=== PATIENT | female | born 1970 | race Caucasian/White ===

== ENCOUNTER 2018-02-23 17:25 | Inpatient (IN) | payer OTHER ==
[2018-02-23 17:32] VITALS: BMI 21.2
--- NOTE | 2018-02-23 17:38 | PDOC ---
Rapid Medical Evaluation Chief Complaint: Wound Time Seen by Provider: 02/23/18 17:37 Medical Evaluation: Allergies Allergy/AdvReac Type Severity Reaction Status Date / Time No Known Allergies Allergy Verified 02/23/18 17:27 Vital Signs Temp Pulse Resp BP Pulse Ox 99.4 F 110 H 18 139/72 100 02/23/18 17:27 02/23/18 17:27 02/23/18 17:27 02/23/18 17:27 02/23/18 17:27
[2018-02-23] MEDS ORDERED: ACETAMINOPHEN 1000 MG/100 ML VIAL (NON FORMULARY) IVPB ONE (18:31)
[2018-02-23] MEDS ORDERED: SODIUM CHLORIDE 0.9% 500 ML INFUS.BAG IV ONE (18:36)
[2018-02-23] MEDS ORDERED: VANCOMYCIN 1,000 MG in DEXTROSE 5%-WATER - 250 ML IVPB ONE (18:36)
[2018-02-23] MEDS ORDERED: PIPERACILLIN/TAZOB 4.5 GM 4.5 GM in DEXTROSE 5%-WATER 100 ML IVPB ONE (18:37)
--- NOTE | 2018-02-23 18:38 | PDOC ---
History of Present Illness - General Chief Complaint: Wound Stated Complaint: WOUND Time Seen by Provider: 02/23/18 17:37 - History of Present Illness Initial Comments: 47 year old female with NIDDM (s/p right third digit amputation one year prior at [place]) presenting with left fright toe planter wound for the pat month, fevers x3 days, and lower body aches x 1 week. States that she noticed a lesion on her left first toe one month prior that she did not seek medical care for and gradually worsened. She had fevers and muscle aches over the last three days and one weeks respectively for which she has taken three days of Amoxicillin which have not improved her symptoms. Denies SOB, chest pain, visual symptoms, or other sick symptoms. 02/23/18 18:32 Past History - Past Medical History Allergies/Adverse Reactions: Allergies Allergy/AdvReac Type Severity Reaction Status Date / Time No Known Allergies Allergy Verified 02/23/18 17:27 Home Medications: Ambulatory Orders metFORMIN HCL [Glucophage] 1,000 mg PO BID 04/02/12 Amoxicillin - [Amoxicillin 500mg Capsule -] 500 mg PO BID 02/23/18 Ranitidine [Zantac -] 150 mg PO BID 02/23/18 COPD: No Diabetes: Yes HTN: Yes - Suicide/Smoking/Psychosocial Hx Smoking Status: No Smoking History: Never smoked Have you smoked in the past 12 months: No Number of Cigarettes Smoked Daily: 0 Information on smoking cessation initiated: No Hx Alcohol Use: No Drug/Substance Use Hx: No Substance Use Type: None Review of Systems - Review of Systems Constitutional: Yes: Chills, Diaphoresis, Fever. No: Loss of Appetite, Malaise HEENTM: No: Eye Pain, Blurred Vision, Tearing Respiratory: No: Cough, Shortness of Breath, SOB with Exertion Cardiac (ROS): No: Edema, Irregular Heart Rate, Lightheadedness, Chest Tightness ABD/GI: Yes: Nausea, Vomiting. No: Diarrhea : No: Dysuria, Discharge, Frequency, Flank Pain Musculoskeletal: Yes: Joint Pain, Muscle Weakness. No: Back Pain Integumentary: Yes: Lesions. No: Lumps, Rash Neurological: Yes: Headache. No: Numbness, Paresthesia Psychiatric: No: Anxiety, Depression *Physical Exam - Vital Signs Last Vital Signs Temp Pulse Resp BP Pulse Ox 99.4 F 110 H 18 139/72 100 02/23/18 17:27 02/23/18 17:27 02/23/18 17:27 02/23/18 17:27 02/23/18 17:27 - Physical Exam General Appearance: Yes: Nourished, Appropriately Dressed, Apparent Distress HEENT: positive: EOMI, PETER, Normal ENT Inspection, Normal Voice Neck: positive: Trachea midline, Normal Thyroid, Supple. negative: Tender, Rigid Respiratory/Chest: positive: Lungs Clear, Normal Breath Sounds, Respiratory Distress. negative: Chest Tender, Accessory Muscle Use Cardiovascular: positive: Regular Rhythm, Regular Rate Gastrointestinal/Abdominal: positive: Normal Bowel Sounds, Flat, Soft. negative : Tender Musculoskeletal: positive: Other (Per extremity section). negative: Normal Inspection, Decreased Range of Motion Extremity: positive: Normal Capillary Refill, Normal Inspection, Normal Range of Motion, Tender, Other (Right toe plantar aspect ulcer with malodorous material but no obvious drainage. Wound probe extending into soft tissue.) Integumentary: positive: Normal Color, Dry, Warm Neurologic: positive: Fully Oriented, Alert, Normal Mood/Affect, Normal Response , Motor Strength 5/5 ED Treatment Course - LABORATORY CBC & Chemistry Diagram: 02/23/18 18:27 02/23/18 18:27 - RADIOLOGY Radiology Studies Ordered: Category Date Time Status FOOT-LEFT [RAD] Stat Radiology 02/23/18 18:28 Ordered Medical Decision Making - Medical Decision Making 47 year old female with poorly controlled NIDDM presenting with right foot ulcer concerning for osteo with elevated WBC, CRP, and palpitations. Patient signed out to Dr. Bean pending foot XR but wound was cultured and patient given Vanc and Zosyn. 02/23/18 21:23 *DC/Admit/Observation/Transfer Diagnosis at time of Disposition: Right foot ulcer, Hyperglycemia - Discharge Dispostion Disposition: HOME Condition at time of disposition: Improved Decision to Admit order: Yes - Referrals - Patient Instructions - Post Discharge Activity
[2018-02-23] MEDS ORDERED: ACETAMINOPHEN INJECTION 100 ML IVPB ONE (18:55)
[2018-02-23] MEDS ORDERED: PIPERACILLIN/TAZOB 4.5 GM 4.5 GM/100 ML BAG IVPB ONE (18:55)
[2018-02-23] MEDS ORDERED: VANCOMYCIN 1 GRAM (PRE-DOCKED) 1,000 MG/250 ML BAG IVPB ONE (18:56)
[2018-02-23 19:01] LABS: VENOUS PC02 44.1 mmHg (38-52); VENOUS PH 7.36 (7.32-7.42)
[2018-02-23 19:02] LABS: BASO % 0.6 % (0-2.0); EOS % 0.1 % (0-4.5); HEMATOCRIT 37.2 % (32.4-45.2); LYMPH % 4.1 % (8-40); MCH 28.1 pg (25.7-33.7); MCHC 32.3 g/dl (32.0-36.0); MEAN CELL VOLUME 86.9 fl (80-96); MEAN PLT VOLUME 9.5 fl (7.5-11.1); NEUT % 91.2 % (42.8-82.8); PLATELET COUNT 297 K/MM3 (134-434); RBC 4.28 M/mm3 (3.60-5.2); RDW 13.4 % (11.6-15.6); WHITE BLOOD COUNT 17.6 K/mm3 (4.0-10.0)
[2018-02-23 19:04] LABS: VENOUS PO2 14.2 mmHg (28-48)
[2018-02-23 19:13] LABS: URINE APPEARANCE CLEAR; URINE BILIRUBIN NEGATIVE (<2.0 mg/dL); URINE COLOR COLORLESS; URINE GLUCOSE (UA) 3+ (NEGATIVE); URINE KETONE TRACE (NEGATIVE); URINE LEUK ESTERASE NEGATIVE (NEGATIVE); URINE NITRITE NEGATIVE (NEGATIVE); URINE PROTEIN NEGATIVE (NEGATIVE); URINE UROBILINOGEN NEGATIVE mg/dL (0.2-1.0)
[2018-02-23 19:20] LABS: EPI CELLS RARE /HPF (FEW); URINE BACTERIA RARE /hpf (NONE SEEN); URINE MUCUS RARE
[2018-02-23 19:23] LABS: INR 1.09 (0.82-1.09); PROTHROMBIN TIME (PATIENT) 12.3 SEC (9.7-13.0)
[2018-02-23 19:26] LABS: ACTIVATED PTT 25.8 SECONDS (25.2-36.5)
[2018-02-23] MEDS ORDERED: morphine CARPU-JECT 2 MG/1 ML DISP.SYRIN IVPUSH ONE (19:26)
[2018-02-23] MEDS ORDERED: MORPHINE SULFATE 2 MG/ML VIAL ONE (19:29)
[2018-02-23 19:35] LABS: ALBUMIN 3.5 g/dl (3.4-5.0); ANION GAP 9 (8-16); BILIRUBIN,TOTAL 0.4 mg/dL (0.2-1.0); BLOOD UREA NITROGEN 23 mg/dL (7-18); CALCIUM 9.5 mg/dL (8.5-10.1); CHLORIDE 97 mmol/L (98-107); CO2 25 mmol/L (21-32); CREATININE 1.4 mg/dL (0.55-1.02); POTASSIUM 4.5 mmol/L (3.5-5.1); SGOT/AST 10 U/L (15-37); SGPT/ALT 19 U/L (12-78); SODIUM 131 mmol/L (136-145); TOT PROT 8.8 g/dl (6.4-8.2)
--- NOTE | 2018-02-23 19:36 | PDOC ---
Attending Attestation - HPI HPI: 02/23/18 20:47 Patient is a 47 year old female with a significant past medical history of HTN, Diabetes, who presents to the ED with complaints of right foot pain, s/p wound that began x1 month ago. Patient reports experiencing right first toe wound that began x1 month ago that she states causing intense pain. She reports experiencing associated general body aches, diaphoresis and subjective fevers. Patient reports taking amoxicillin from a [place] near her home for her symptoms for x3 days with no relief, prompting her to come into the ED for further evaluation Denies chest pain, Sob. Denies nausea, vomiting. Denies chills. Denies contact with sick individuals, out of state travelling. Denies trauma to affected area. Denies dysuria, hematuria. Denies constipation, diarrhea. Denies any other symptoms. Allergies: None Social history: no smoking. No alcohol. No illicit drugs. Surgical history: Right second toe amputation, s/p diabetic wound. PMD: None - Physicial Exam PE: 02/23/18 20:47 GENERAL: Well-appearing, well-nourished. No apparent distress. HEENT: +Dry mucous membrane. Normocephalic, atraumatic. PERRL, EOM intact. CARDIOVASCULAR: +Tachycardic. Normal S1, S2. Regular rhythm. PULMONARY: Clear to auscultation bilaterally. ABDOMEN: Soft, non-distended, non-tender. EXTREMITIES: +nickel size wound to dorsum of her big right toe. +Serous discharge. +wound smells malodorous. No surrounding erythema. Normal ROM in all four extremities. No gross deformities. SKIN: Warm, dry. No rash NEUROLOGICAL: No focal neurological deficits. <Frank Vogt - Last Filed: 02/23/18 20:47> - Resident Resident Name: Isela Tubbs - ED Attending Attestation I have performed the following: I have examined & evaluated the patient, The case was reviewed & discussed with the resident, I agree w/resident's findings & plan, Exceptions are as noted - Medical Decision Making 02/24/18 19:13 Pt was admitted for further evaluation and care <Isidoro Baltazar - Last Filed: 02/24/18 19:13>
[2018-02-23 19:37] LABS: ALK PHOS 166 U/L (45-117)
[2018-02-23 19:50] LABS: GLUCOSE,RANDOM 642 mg/dL (74-106)
[2018-02-23] MEDS ORDERED: INSULIN REGULAR HUMAN 100 UNITS/ML *VIAL IVPUSH ONE (20:03)
[2018-02-23] MEDS ORDERED: INSULIN REGULAR HUMAN 100 UNITS/ML *VIAL ONE (20:17)
[2018-02-23 20:44] LABS: PLATELET ESTIMATE ADEQUATE
[2018-02-23] MEDS ORDERED: oxyCODONE HCL 5 MG TABLET PO PRN (20:51)
--- NOTE | 2018-02-23 20:51 | HP ---
Admitting History and Physical - Primary Care Physician PCP: Shannan Bean - Admission History of Present Illness: 47 year old female with NIDDM (s/p right third digit amputation one year prior at [place]) presenting with left toe planter wound for the last month, fevers x3 days, and lower body aches x 1 week. States that she noticed a lesion on her left first toe one month prior that she did not seek medical care for and gradually worsened. She had fevers and muscle aches over the last three days and one weeks respectively for which she has taken three days of Amoxicillin which have not improved her symptoms. - Past Medical History Endocrine: Yes: Diabetes Mellitus - Smoking History Smoking history: Never smoked Have you smoked in the past 12 months: No Aproximately how many cigarettes per day: 0 - Alcohol/Substance Use Hx Alcohol Use: No Home Medications - Allergies Allergies/Adverse Reactions: Allergies Allergy/AdvReac Type Severity Reaction Status Date / Time No Known Allergies Allergy Verified 02/23/18 17:27 - Home Medications Home Medications: Ambulatory Orders metFORMIN HCL [Glucophage] 1,000 mg PO BID 04/02/12 Amoxicillin - [Amoxicillin 500mg Capsule -] 500 mg PO BID 02/23/18 Ranitidine [Zantac -] 150 mg PO BID 02/23/18 Physical Examination Vital Signs: Vital Signs Temperature 99.4 F 02/23/18 17:27 Pulse Rate 110 H 02/23/18 17:27 Respiratory Rate 18 02/23/18 17:27 Blood Pressure 139/72 02/23/18 17:27 O2 Sat by Pulse Oximetry (%) 100 02/23/18 17:27 Constitutional: Yes: No Distress HENT: Yes: Atraumatic Neck: Yes: Supple Cardiovascular: Yes: Regular Rate and Rhythm Respiratory: Yes: CTA Bilaterally Gastrointestinal: Yes: Normal Bowel Sounds Extremities: Yes: Other (R foot ulcer) Neurological: Yes: Alert, Oriented Labs: CBC, BMP 02/23/18 18:27 02/23/18 18:27 Problem List - Problems (1) Cellulitis of left foot Assessment/Plan: iv abx, id and podiatry Code(s): L03.116 - CELLULITIS OF LEFT LOWER LIMB (2) Hyperglycemia Code(s): R73.9 - HYPERGLYCEMIA, UNSPECIFIED (3) Right foot ulcer Code(s): L97.519 - NON-PRS CHRONIC ULCER OTH PRT RIGHT FOOT W UNSP SEVERITY Assessment/Plan Laboratory Tests 02/23/18 02/23/18 02/23/18 18:27 18:27 18:27 WBC 17.6 H RBC 4.28 Hgb 12.0 Hct 37.2 MCV 86.9 MCH 28.1 MCHC 32.3 RDW 13.4 Plt Count 297 MPV 9.5 Absolute Neuts (auto) 16.1 Neutrophils % 91.2 H Neutrophils % (Manual) 84.0 H Band Neutrophils % 6.0 Lymphocytes % 4.1 L Lymphocytes % (Manual) 6.0 L Monocytes % 4.0 Monocytes % (Manual) 3 L Eosinophils % 0.1 Eosinophils % (Manual) 0.0 Basophils % 0.6 Basophils % (Manual) 0.0 Nucleated RBC % 0 Platelet Estimate Adequate PT with INR 12.30 INR 1.09 PTT (Actin FS) 25.8 L VBG pH POC VBG pCO2 POC VBG pO2 Mixed VBG HCO3 Sodium Potassium Chloride Carbon Dioxide Anion Gap BUN Creatinine Creat Clearance w eGFR Random Glucose Lactic Acid Calcium Total Bilirubin AST ALT Alkaline Phosphatase Troponin I C-Reactive Protein Total Protein Albumin Urine Color Colorless Urine Appearance Clear Urine pH 5.0 Ur Specific Webb 1.022 Urine Protein Negative Urine Glucose (UA) 3+ H Urine Ketones Trace H Urine Blood 1+ H Urine Nitrite Negative Urine Bilirubin Negative Urine Urobilinogen Negative Ur Leukocyte Esterase Negative Urine WBC (Auto) 1 Urine RBC (Auto) <1 Ur Epithelial Cells Rare Urine Bacteria Rare Urine Mucus Rare Urine HCG, Qual 02/23/18 02/23/18 02/23/18 18:27 18:27 18:27 WBC RBC Hgb Hct MCV MCH MCHC RDW Plt Count MPV Absolute Neuts (auto) Neutrophils % Neutrophils % (Manual) Band Neutrophils % Lymphocytes % Lymphocytes % (Manual) Monocytes % Monocytes % (Manual) Eosinophils % Eosinophils % (Manual) Basophils % Basophils % (Manual) Nucleated RBC % Platelet Estimate PT with INR INR PTT (Actin FS) VBG pH 7.36 POC VBG pCO2 44.1 POC VBG pO2 14.2 L* Mixed VBG HCO3 24.7 Sodium 131 L Potassium 4.5 Chloride 97 L Carbon Dioxide 25 Anion Gap 9 BUN 23 H Creatinine 1.4 H Creat Clearance w eGFR 40.48 Random Glucose 642 H* Lactic Acid 1.6 Calcium 9.5 Total Bilirubin 0.4 AST 10 L ALT 19 Alkaline Phosphatase 166 H Troponin I C-Reactive Protein Total Protein 8.8 H Albumin 3.5 Urine Color Urine Appearance Urine pH Ur Specific Webb Urine Protein Urine Glucose (UA) Urine Ketones Urine Blood Urine Nitrite Urine Bilirubin Urine Urobilinogen Ur Leukocyte Esterase Urine WBC (Auto) Urine RBC (Auto) Ur Epithelial Cells Urine Bacteria Urine Mucus Urine HCG, Qual 02/23/18 02/23/18 02/23/18 18:27 18:35 19:15 WBC RBC Hgb Hct MCV MCH MCHC RDW Plt Count MPV Absolute Neuts (auto) Neutrophils % Neutrophils % (Manual) Band Neutrophils % Lymphocytes % Lymphocytes % (Manual) Monocytes % Monocytes % (Manual) Eosinophils % Eosinophils % (Manual) Basophils % Basophils % (Manual) Nucleated RBC % Platelet Estimate PT with INR INR PTT (Actin FS) VBG pH POC VBG pCO2 POC VBG pO2 Mixed VBG HCO3 Sodium Potassium Chloride Carbon Dioxide Anion Gap BUN Creatinine Creat Clearance w eGFR Random Glucose Lactic Acid Calcium Total Bilirubin AST ALT Alkaline Phosphatase Troponin I < 0.02 C-Reactive Protein 31.6 H Total Protein Albumin Urine Color Urine Appearance Urine pH Ur Specific Webb Urine Protein Urine Glucose (UA) Urine Ketones Urine Blood Urine Nitrite Urine Bilirubin Urine Urobilinogen Ur Leukocyte Esterase Urine WBC (Auto) Urine RBC (Auto) Ur Epithelial Cells Urine Bacteria Urine Mucus Urine HCG, Qual Negative Active Medications Generic Name Dose Route Start Last Admin Trade Name Freq PRN Reason Stop Dose Admin Acetaminophen 650 mg 02/23/18 20:51 02/24/18 06:18 Tylenol - PO 650 mg Q6H PRN Administration FEVER Heparin Sodium (Porcine) 5,000 unit 02/23/18 22:00 02/24/18 11:24 Heparin - SQ 5,000 unit BID DANILO Administration Piperacillin Sod/Tazobactam 50 mls @ 100 mls/hr 02/23/18 21:30 02/24/18 11:28 Sod 3.375 gm/ Dextrose IVPB 100 mls/hr Q8H-IV DANILO Administration Protocol Metformin HCl 500 mg 02/24/18 07:00 02/24/18 06:09 Glucophage - PO 500 mg BIDI DANILO Administration Oxycodone HCl 10 mg 02/23/18 20:51 Roxicodone - PO Q6H PRN PAIN LEVEL 4 - 6 Ranitidine HCl 150 mg 07/16/18 22:00 02/24/18 11:28 Zantac - PO 150 mg BID DANILO Administration
[2018-02-23] MEDS ORDERED: SODIUM CHLORIDE 1,000 ML IV STA (21:00)
[2018-02-23] MEDS ORDERED: PIPERACILLIN/TAZOB 3.375 GM 3.375 GM/50 ML BAG IVPB ONE (21:46)
[2018-02-23] MEDS: PIPERACILLIN/TAZOB 3.375 GM 3.375 GM in DEXTROSE 5%-WATER - 50 ML IVPB SCH (21:52)
[2018-02-23] MEDS ORDERED: HEPARIN NA (PORCINE) 5,000 UNITS/ML 1ML VIAL ONE (21:54)
[2018-02-23] MEDS ORDERED: RANITIDINE HCL 150 MG TABLET (FP) ONE (21:54)
[2018-02-23] MEDS: RANITIDINE HCL 150 MG TABLET (FP) PO SCH (21:59)
[2018-02-23] MEDS: HEPARIN NA (PORCINE) 5,000 UNITS/ML 1ML VIAL SQ SCH (21:59)
[2018-02-24] MEDS ORDERED: PIPERACILLIN/TAZOBACTAM 3.375 GM VIAL IVPB ONE ×3 (01:06→17:45)
[2018-02-24] MEDS ORDERED: DEXTROSE 5%-WATER - 50 ML IVPB ONE ×3 (01:06→17:45)
[2018-02-24] MEDS: PIPERACILLIN/TAZOB 3.375 GM 3.375 GM in DEXTROSE 5%-WATER - 50 ML IVPB SCH ×3 (02:31→17:51)
[2018-02-24] MEDS ORDERED: ONDANSETRON 4 MG/2 ML VIAL ONE (06:02)
[2018-02-24] MEDS: metFORMIN HCL 500 MG TABLET (FP) PO SCH ×2 (06:09→17:52)
[2018-02-24] MEDS ORDERED: INSULIN (NOVOLOG) ASPART 100 UNITS/ML 10ML VIAL SQ ONE ×2 (06:15→23:15)
[2018-02-24] MEDS ORDERED: ONDANSETRON 4 MG/2 ML VIAL IVPUSH ONE (06:15)
[2018-02-24] MEDS: ACETAMINOPHEN 325 MG TABLET (FP) PO PRN ×2 (06:18→17:54)
[2018-02-24 07:59] LABS: BASO % 0.2 % (0-2.0); EOS % 0.2 % (0-4.5); HEMATOCRIT 29.5 % (32.4-45.2); HEMOGLOBIN 9.8 GM/dL (10.7-15.3); MCH 28.5 pg (25.7-33.7); MCHC 33.3 g/dl (32.0-36.0); MEAN CELL VOLUME 85.6 fl (80-96); MONO % 3.2 % (3.8-10.2); NEUT % 89.4 % (42.8-82.8); PLATELET COUNT 241 K/MM3 (134-434); RBC 3.44 M/mm3 (3.60-5.2); RDW 12.9 % (11.6-15.6); WHITE BLOOD COUNT 15.9 K/mm3 (4.0-10.0)
--- NOTE | 2018-02-24 11:23 | EKG ---
Test Reason : Blood Pressure : / mmHG Vent. Rate : 110 BPM Atrial Rate : 110 BPM P-R Int : 140 ms QRS Dur : 072 ms QT Int : 314 ms P-R-T Axes : 044 031 045 degrees QTc Int : 424 ms SINUS TACHYCARDIA OTHERWISE NORMAL ECG Confirmed by MD NI, SKYLAR ([id number]) on 02/24/2018 11:22:43 AM Referred By: Confirmed By:SKYLAR DAN MD
[2018-02-24] MEDS: HEPARIN NA (PORCINE) 5,000 UNITS/ML 1ML VIAL SQ SCH ×2 (11:24→22:04)
[2018-02-24] MEDS: RANITIDINE HCL 150 MG TABLET (FP) PO SCH ×2 (11:28→22:04)
--- NOTE | 2018-02-24 13:14 | CON.ID ---
Consult Consult Specialty:: infectious diseases Referred by:: Reason for Consultation:: infected toe rt - History of Present Illness Chief Complaint: fever and non healing of the rt toe History of Present Illness: 47 year old female with NIDDM (s/p right third digit amputation one year prior at [place]) presenting with right toe planter wound for the past month, fevers x3 days, and lower body aches x 1 week. States that she noticed a lesion on her left first toe one month prior that she did not seek medical care for and gradually worsened. She had fevers and muscle aches over the last three days and one weeks respectively for which she has taken three days of Amoxicillin which have not improved her symptoms. Denies SOB, chest pain, visual symptoms, or other sick symptoms. - History Source History Provided By: Patient, Family Member Limitations to Obtaining History: Language Barrier - Past Medical History Endocrine: Yes: Diabetes Mellitus - Alcohol/Substance Use Hx Alcohol Use: No - Smoking History Smoking history: Never smoked Have you smoked in the past 12 months: No Aproximately how many cigarettes per day: 0 Home Medications - Allergies Allergies/Adverse Reactions: Allergies Allergy/AdvReac Type Severity Reaction Status Date / Time No Known Allergies Allergy Verified 02/23/18 17:27 - Home Medications Home Medications: Ambulatory Orders metFORMIN HCL [Glucophage] 1,000 mg PO BID 04/02/12 Amoxicillin - [Amoxicillin 500mg Capsule -] 500 mg PO BID 02/23/18 Ranitidine [Zantac -] 150 mg PO BID 02/23/18 Review of Systems - Review of Systems Constitutional: reports: No Symptoms Eyes: reports: No Symptoms HENT: reports: No Symptoms Neck: reports: No Symptoms Cardiovascular: reports: No Symptoms Respiratory: reports: No Symptoms Gastrointestinal: reports: No Symptoms Genitourinary: reports: No Symptoms Musculoskeletal: reports: Other Integumentary: reports: Erythema Neurological: reports: No Symptoms Endocrine: reports: No Symptoms Hematology/Lymphatic: reports: No Symptoms Psychiatric: reports: No Symptoms Physical Exam Vital Signs: Vital Signs Temperature 98 F 02/24/18 10:09 Pulse Rate 96 H 02/24/18 10:09 Respiratory Rate 02/24/18 10:09 Blood Pressure 108/65 02/24/18 10:09 O2 Sat by Pulse Oximetry (%) 99 07/17/18 00:35 Constitutional: Yes: No Distress, Calm Eyes: Yes: Conjunctiva Clear Cardiovascular: Yes: Regular Rate and Rhythm Respiratory: Yes: Regular, CTA Bilaterally Gastrointestinal: Yes: Normal Bowel Sounds, Soft Musculoskeletal: Yes: WNL Extremities: Yes: Other Wound/Incision: Yes: Other (rt toe plantar non healing wound) Neurological: Yes: Alert, Oriented Psychiatric: Yes: Alert, Oriented Labs: CBC, BMP 02/24/18 06:30 02/23/18 18:27 Imaging - Results X-ray: Report Reviewed, Image Reviewed Assessment/Plan i think this patient with non healing wound of the toe is probably osteo r/o osteo (1) Cellulitis of left foot Assessment/Plan: iv abx, id and podiatry Code(s): L03.116 - CELLULITIS OF LEFT LOWER LIMB (2) Hyperglycemia Code(s): R73.9 - HYPERGLYCEMIA, UNSPECIFIED (3) Right foot ulcer Code(s): L97.519 - NON-PRS CHRONIC ULCER OTH PRT RIGHT FOOT W UNSP SEVERITY plan mri of the foot podiatry once we have all the results further plan await for all cx reports will start patient on abx
--- NOTE | 2018-02-24 13:34 | PN ---
Progress Note, Physician - Current Medication List Current Medications: Active Medications Acetaminophen (Tylenol -) 650 mg PO Q6H PRN PRN Reason: FEVER Last Admin: 02/24/18 06:18 Dose: 650 mg Heparin Sodium (Porcine) (Heparin -) 5,000 unit SQ BID [facility] Last Admin: 02/24/18 11:24 Dose: 5,000 unit Piperacillin Sod/Tazobactam (Sod 3.375 gm/ Dextrose) 50 mls @ 100 mls/hr IVPB Q8H-IV DANILO; Protocol Last Admin: 02/24/18 11:28 Dose: 100 mls/hr Metformin HCl (Glucophage -) 500 mg PO BIDI [facility] Last Admin: 02/24/18 06:09 Dose: 500 mg Oxycodone HCl (Roxicodone -) 10 mg PO Q6H PRN PRN Reason: PAIN LEVEL 4 - 6 Ranitidine HCl (Zantac -) 150 mg PO BID [facility] Last Admin: 02/24/18 11:28 Dose: 150 mg - Objective Vital Signs: Vital Signs Temperature 98 F 02/24/18 10:09 Pulse Rate 96 H 02/24/18 10:09 Respiratory Rate 18 02/24/18 10:09 Blood Pressure 108/65 02/24/18 10:09 O2 Sat by Pulse Oximetry (%) 99 02/24/18 00:35 Constitutional: Yes: No Distress HENT: Yes: Atraumatic Neck: Yes: Supple Cardiovascular: Yes: Regular Rate and Rhythm Respiratory: Yes: CTA Bilaterally Gastrointestinal: Yes: Normal Bowel Sounds Extremities: Yes: WNL, Other (cellulitis left foot) Neurological: Yes: Alert, Oriented Labs: CBC, BMP 02/24/18 06:30 02/23/18 18:27 INR, PTT INR 1.09 (0.82-1.09) 02/23/18 18:27 Problem List - Problems (1) Cellulitis of left foot Assessment/Plan: iv abx, id and podiatry Code(s): L03.116 - CELLULITIS OF LEFT LOWER LIMB (2) Hyperglycemia Code(s): R73.9 - HYPERGLYCEMIA, UNSPECIFIED (3) Right foot ulcer Code(s): L97.519 - NON-PRS CHRONIC ULCER OTH PRT RIGHT FOOT W UNSP SEVERITY
--- NOTE | 2018-02-24 17:26 | CONSULT ---
Consult - text type - Consultation Consultation Note: Asked to see patient for infected ulcerated right big toe of 1 month duration according to patient. vss, Tmax 98.7 +grade 3 wound right hallux, +mal odor, +mild drainage, mri recommended to rule out om grade 3 wound r/o om pvd? Santyl to wound. Post op shoe. Hgba1c. ESR, CRP. MRI ordered. Dr. Delgado for vascular eval possible amputation. will follow.
[2018-02-24] MEDS: COLLAGENASE CLOSTRIDIUM HIST. 30 GRAMS TUBE TP SCH ×2 (17:55→19:37)
[2018-02-24 22:16] LABS: ALBUMIN 2.3 g/dl (3.4-5.0); ANION GAP 9 (8-16); BILIRUBIN,TOTAL 0.4 mg/dL (0.2-1.0); BLOOD UREA NITROGEN 12 mg/dL (7-18); CALCIUM 7.8 mg/dL (8.5-10.1); CHLORIDE 105 mmol/L (98-107); CO2 24 mmol/L (21-32); CREATININE 0.8 mg/dL (0.55-1.02); POTASSIUM 4.2 mmol/L (3.5-5.1); SGOT/AST 11 U/L (15-37); SGPT/ALT 14 U/L (12-78); SODIUM 138 mmol/L (136-145); TOT PROT 6.3 g/dl (6.4-8.2)
[2018-02-24 22:17] LABS: ALK PHOS 101 U/L (45-117)
[2018-02-24 22:23] LABS: GLUCOSE,RANDOM 312 mg/dL (74-106)
[2018-02-25] MEDS: ACETAMINOPHEN 325 MG TABLET (FP) PO PRN (00:04)
[2018-02-25] MEDS ORDERED: DEXTROSE 5%-WATER - 50 ML IVPB ONE ×3 (00:57→17:20)
[2018-02-25] MEDS ORDERED: PIPERACILLIN/TAZOBACTAM 3.375 GM VIAL IVPB ONE ×3 (00:57→17:19)
[2018-02-25] MEDS: PIPERACILLIN/TAZOB 3.375 GM 3.375 GM in DEXTROSE 5%-WATER - 50 ML IVPB SCH ×3 (01:06→17:50)
[2018-02-25] MEDS: metFORMIN HCL 500 MG TABLET (FP) PO SCH ×2 (06:31→17:48)
[2018-02-25 08:24] LABS: BASO % 0.5 % (0-2.0); EOS % 0.5 % (0-4.5); HEMATOCRIT 30.4 % (32.4-45.2); HEMOGLOBIN 10.2 GM/dL (10.7-15.3); LYMPH % 9.3 % (8-40); MCH 28.7 pg (25.7-33.7); MCHC 33.6 g/dl (32.0-36.0); MEAN CELL VOLUME 85.4 fl (80-96); MEAN PLT VOLUME 8.9 fl (7.5-11.1); MONO % 4.7 % (3.8-10.2); PLATELET COUNT 284 K/MM3 (134-434); RBC 3.56 M/mm3 (3.60-5.2); WHITE BLOOD COUNT 12.2 K/mm3 (4.0-10.0)
--- NOTE | 2018-02-25 09:49 | PN ---
Progress Note (short form) - Note Progress Note: 47yo F h/o Left great toe diabetic ulcer. Vascular surgery consulted to evaluate. CBC, BMP 02/25/18 06:50 02/24/18 21:10 Last Vital Signs Temp Pulse Resp BP Pulse Ox 98.4 F 88 22 148/90 99 02/25/18 09:16 02/25/18 09:16 02/25/18 09:16 02/25/18 09:16 02/24/18 21:00 PE: Gen: A&O x3 Resp: breathing comfortably Ext: Left great toe show 2 cm ulceration on plantar aspect, mild edema, pedal pulse intact +2. Left 2nd to s/p amputation. Problem List - Problems (1) Cellulitis of left foot Assessment/Plan: Plan -pt appears to have adequate blood flow to the foot, no vascular interventions at this time. -santyl to wound -abx as per medicine/ID -follow up in wound clinic as outpatient. Code(s): L03.116 - CELLULITIS OF LEFT LOWER LIMB
--- NOTE | 2018-02-25 10:23 | PN ---
Progress Note, Physician History of Present Illness: patient stable dressing on the foot now seen by podiatry awaiting mri - Current Medication List Current Medications: Active Medications Acetaminophen (Tylenol -) 650 mg PO Q6H PRN PRN Reason: FEVER Last Admin: 02/25/18 00:04 Dose: 650 mg Collagenase (Santyl -) 1 applic TP DAILY [facility]; Protocol Last Admin: 02/24/18 19:37 Dose: 1 applic Heparin Sodium (Porcine) (Heparin -) 5,000 unit SQ BID [facility] Last Admin: 02/24/18 22:04 Dose: 5,000 unit Piperacillin Sod/Tazobactam (Sod 3.375 gm/ Dextrose) 50 mls @ 100 mls/hr IVPB Q8H-IV DANILO; Protocol Last Admin: 02/25/18 01:06 Dose: 100 mls/hr Metformin HCl (Glucophage -) 500 mg PO BIDI [facility] Last Admin: 02/25/18 06:31 Dose: 500 mg Oxycodone HCl (Roxicodone -) 10 mg PO Q6H PRN PRN Reason: PAIN LEVEL 4 - 6 Last Admin: 02/25/18 06:31 Dose: 10 mg Ranitidine HCl (Zantac -) 150 mg PO BID [facility] Last Admin: 02/24/18 22:04 Dose: 150 mg - Objective Vital Signs: Vital Signs Temperature 98.4 F 02/25/18 09:16 Pulse Rate 88 02/25/18 09:16 Respiratory Rate 22 02/25/18 09:16 Blood Pressure 148/90 02/25/18 09:16 O2 Sat by Pulse Oximetry (%) 99 02/24/18 21:00 Constitutional: Yes: No Distress, Calm Cardiovascular: Yes: Regular Rate and Rhythm Respiratory: Yes: Regular, CTA Bilaterally Musculoskeletal: Yes: WNL Extremities: Yes: Other Wound/Incision: Yes: Dressing Dry and Intact Neurological: Yes: Alert, Oriented Psychiatric: Yes: Alert, Oriented Labs: CBC, BMP 02/25/18 06:50 02/24/18 21:10 INR, PTT INR 1.09 (0.82-1.09) 02/23/18 18:27 Assessment/Plan patient now also has uti r/o osteo (1) Cellulitis of left foot Assessment/Plan: iv abx, id and podiatry Code(s): L03.116 - CELLULITIS OF LEFT LOWER LIMB (2) Hyperglycemia Code(s): R73.9 - HYPERGLYCEMIA, UNSPECIFIED (3) Right foot ulcer Code(s): L97.519 - NON-PRS CHRONIC ULCER OTH PRT RIGHT FOOT W UNSP SEVERITY 4 uti plan mri of the foot awaited podiatry once we have all the results further plan await for all finalization of the reports continue abx await for finalization of the organism will add clinda
--- NOTE | 2018-02-25 11:01 | PN ---
Progress Note (short form) - Note Progress Note: FUV right big toe. No complaints. vss. Tmax 98.4 +necrotic tissue in a grade 3 wound sub right hallux, -cellulitis, -koki drainage today, step and staph in wound, wbc=12.2 om pvd? cellulitis Awaiting MRI. Will follow. Continue Santyl dressing changes.
[2018-02-25] MEDS: COLLAGENASE CLOSTRIDIUM HIST. 30 GRAMS TUBE TP SCH (11:24)
[2018-02-25] MEDS: HEPARIN NA (PORCINE) 5,000 UNITS/ML 1ML VIAL SQ SCH ×2 (11:26→21:17)
[2018-02-25] MEDS: CLINDAMYCIN HCL 150 MG CAPSULE (FP) PO SCH ×2 (11:26→17:49)
[2018-02-25] MEDS: RANITIDINE HCL 150 MG TABLET (FP) PO SCH ×2 (11:26→21:18)
[2018-02-25 15:14] LABS: CHLORIDE 103 mmol/L (98-107); SODIUM 137 mmol/L (136-145)
[2018-02-25 15:26] LABS: ALBUMIN 2.4 g/dl (3.4-5.0); ALK PHOS 104 U/L (45-117); ANION GAP 7 (8-16); BILIRUBIN,TOTAL 0.3 mg/dL (0.2-1.0); BLOOD UREA NITROGEN 11 mg/dL (7-18); CALCIUM 8.2 mg/dL (8.5-10.1); CO2 27 mmol/L (21-32); CREATININE 0.7 mg/dL (0.55-1.02); GLUCOSE,RANDOM 223 mg/dL (74-106); SGOT/AST 13 U/L (15-37); SGPT/ALT 16 U/L (12-78); TOT PROT 6.5 g/dl (6.4-8.2)
--- NOTE | 2018-02-25 16:27 | PN ---
Progress Note, Physician History of Present Illness: events noted vomitting could be due to abx - Current Medication List Current Medications: Active Medications Acetaminophen (Tylenol -) 650 mg PO Q6H PRN PRN Reason: FEVER Last Admin: 02/25/18 00:04 Dose: 650 mg Clindamycin HCl (Cleocin -) 300 mg PO Q6HPO [facility] Last Admin: 02/25/18 11:26 Dose: 300 mg Collagenase (Santyl -) 1 applic TP DAILY [facility]; Protocol Last Admin: 02/25/18 11:24 Dose: 1 applic Heparin Sodium (Porcine) (Heparin -) 5,000 unit SQ BID [facility] Last Admin: 02/25/18 11:26 Dose: 5,000 unit Piperacillin Sod/Tazobactam (Sod 3.375 gm/ Dextrose) 50 mls @ 100 mls/hr IVPB Q8H-IV [facility]; Protocol Last Admin: 02/25/18 11:27 Dose: 100 mls/hr Insulin Aspart (Novolog Vial Sliding Scale -) 1 vial SQ ACHS [facility]; Protocol Metformin HCl (Glucophage -) 500 mg PO BIDI [facility] Last Admin: 02/25/18 06:31 Dose: 500 mg Morphine Sulfate (Morphine Sulfate) 2 mg IVPUSH Q4H PRN PRN Reason: PAIN LEVEL 6-10 Ondansetron HCl (Zofran Injection) 4 mg IVPB Q4H PRN PRN Reason: NAUSEA AND/OR VOMITING Oxycodone HCl (Roxicodone -) 10 mg PO Q6H PRN PRN Reason: PAIN LEVEL 4 - 6 Last Admin: 02/25/18 06:31 Dose: 10 mg Ranitidine HCl (Zantac -) 150 mg PO BID [facility] Last Admin: 02/25/18 11:26 Dose: 150 mg - Objective Vital Signs: Vital Signs Temperature 97.8 F 02/25/18 14:33 Pulse Rate 84 02/25/18 14:33 Respiratory Rate 18 02/25/18 14:33 Blood Pressure 162/94 02/25/18 14:33 O2 Sat by Pulse Oximetry (%) 99 02/24/18 21:00 Constitutional: Yes: No Distress HENT: Yes: Atraumatic Neck: Yes: Supple Cardiovascular: Yes: Regular Rate and Rhythm Respiratory: Yes: CTA Bilaterally Extremities: Yes: Other (left foot cellulitis) Edema: Yes Edema: LLE: 1+ (left foot) Neurological: Yes: Alert, Oriented Labs: CBC, BMP 02/25/18 06:50 02/25/18 06:00 INR, PTT INR 1.09 (0.82-1.09) 02/23/18 18:27 Problem List - Problems (1) Cellulitis of left foot Assessment/Plan: iv abx, id and podiatry Code(s): L03.116 - CELLULITIS OF LEFT LOWER LIMB (2) Hyperglycemia Code(s): R73.9 - HYPERGLYCEMIA, UNSPECIFIED (3) Right foot ulcer Code(s): L97.519 - NON-PRS CHRONIC ULCER OTH PRT RIGHT FOOT W UNSP SEVERITY (4) Diabetes Assessment/Plan: bgms sliding scale insulin endo consult Code(s): E11.9 - TYPE 2 DIABETES MELLITUS WITHOUT COMPLICATIONS
[2018-02-25] MEDS: INSULIN SLIDING SCALE (NOVOLOG) 1 VIAL SQ SCH ×2 (17:48→21:15)
[2018-02-25] MEDS: SENNOSIDES/DOCUSATE COMBO (SENNA PLUS) TABLET (UD) PO PRN (21:18)
[2018-02-25 22:16] LABS: ALBUMIN 2.4 g/dl (3.4-5.0); ALK PHOS 105 U/L (45-117); ANION GAP 9 (8-16); BILIRUBIN,TOTAL 0.2 mg/dL (0.2-1.0); BLOOD UREA NITROGEN 13 mg/dL (7-18); CALCIUM 8.1 mg/dL (8.5-10.1); CHLORIDE 104 mmol/L (98-107); CO2 26 mmol/L (21-32); CREATININE 0.7 mg/dL (0.55-1.02); GLUCOSE,RANDOM 257 mg/dL (74-106); SGOT/AST 11 U/L (15-37); SGPT/ALT 13 U/L (12-78); SODIUM 139 mmol/L (136-145); TOT PROT 6.7 g/dl (6.4-8.2)
[2018-02-26] MEDS: CLINDAMYCIN HCL 150 MG CAPSULE (FP) PO SCH ×4 (00:23→17:24)
[2018-02-26] MEDS ORDERED: PIPERACILLIN/TAZOBACTAM 3.375 GM VIAL IVPB ONE ×2 (00:31→09:12)
[2018-02-26] MEDS ORDERED: DEXTROSE 5%-WATER - 50 ML IVPB ONE ×2 (00:31→09:12)
[2018-02-26] MEDS: PIPERACILLIN/TAZOB 3.375 GM 3.375 GM in DEXTROSE 5%-WATER - 50 ML IVPB SCH ×2 (01:08→09:21)
[2018-02-26] MEDS: metFORMIN HCL 500 MG TABLET (FP) PO SCH ×2 (06:13→17:23)
[2018-02-26] MEDS: INSULIN SLIDING SCALE (NOVOLOG) 1 VIAL SQ SCH ×4 (06:34→22:19)
[2018-02-26 07:57] LABS: BASO % 0.5 % (0-2.0); EOS % 0.2 % (0-4.5); HEMATOCRIT 31.2 % (32.4-45.2); HEMOGLOBIN 10.7 GM/dL (10.7-15.3); LYMPH % 10.2 % (8-40); MCH 29.3 pg (25.7-33.7); MCHC 34.5 g/dl (32.0-36.0); MEAN CELL VOLUME 84.9 fl (80-96); MEAN PLT VOLUME 8.6 fl (7.5-11.1); MONO % 5.9 % (3.8-10.2); NEUT % 83.2 % (42.8-82.8); PLATELET COUNT 318 K/MM3 (134-434); RBC 3.67 M/mm3 (3.60-5.2); RDW 12.8 % (11.6-15.6); WHITE BLOOD COUNT 12.6 K/mm3 (4.0-10.0)
--- NOTE | 2018-02-26 08:59 | CONSULT ---
Consult Consult Specialty:: Endocrinology Referred by:: Dr Bean Reason for Consultation:: Hyperglycemia - History of Present Illness Chief Complaint: Rt foot infection History of Present Illness: This is a 47 year old female with T2DM for about 25 years, never on Insulin, (s /p right third digit amputation one year prior at [place]) presenting with left toe planter wound for the last month, fevers x3 days, and lower body aches x 1 week. States that she noticed a lesion on her left first toe one month prior that she did not seek medical care for and gradually worsened. She had fevers and muscle aches over the last three days and one weeks respectively for which she has taken three days of Amoxicillin which have not improved her symptoms. Pt doesn't do Fs at home. Denies any visual symptoms. No paresthesia of feet. C/P Pain Rt foot. Also c/o epigastric pain/burning. - Past Medical History Endocrine: Yes: Diabetes Mellitus - Alcohol/Substance Use Hx Alcohol Use: No - Smoking History Smoking history: Never smoked Have you smoked in the past 12 months: No Aproximately how many cigarettes per day: 0 Home Medications - Allergies Allergies/Adverse Reactions: Allergies Allergy/AdvReac Type Severity Reaction Status Date / Time No Known Allergies Allergy Verified 02/23/18 17:27 - Home Medications Home Medications: Ambulatory Orders metFORMIN HCL [Glucophage] 1,000 mg PO BID 04/02/12 Amoxicillin - [Amoxicillin 500mg Capsule -] 500 mg PO BID 02/23/18 Ranitidine [Zantac -] 150 mg PO BID 02/23/18 Family Disease History - Family Disease History Family Disease History: Diabetes: Mother Review of Systems - Review of Systems Constitutional: reports: No Symptoms Eyes: reports: No Symptoms HENT: reports: No Symptoms Neck: reports: No Symptoms Cardiovascular: reports: No Symptoms Respiratory: reports: No Symptoms Gastrointestinal: reports: Other (epigastric pain) Genitourinary: reports: No Symptoms Breasts: reports: No Symptoms Reported Musculoskeletal: reports: No Symptoms Neurological: reports: No Symptoms Endocrine: reports: No Symptoms Physical Exam Vital Signs: Vital Signs Temperature 98.4 F 02/26/18 08:07 Pulse Rate 98 H 02/26/18 08:07 Respiratory Rate 17 02/26/18 08:07 Blood Pressure 121/69 02/26/18 08:07 O2 Sat by Pulse Oximetry (%) 99 07/17/18 21:00 Constitutional: Yes: No Distress, Calm Eyes: Yes: Conjunctiva Clear, EOM Intact HENT: Yes: Atraumatic, Normocephalic Neck: Yes: Supple, Trachea Midline Cardiovascular: Yes: Regular Rate and Rhythm Respiratory: Yes: CTA Bilaterally Gastrointestinal: Yes: Normal Bowel Sounds, Soft, Tenderness, Epigastrium Breast(s): Yes: WNL Extremities: Yes: Other (Rt foof dressing) Edema: No Neurological: Yes: Alert, Oriented Labs: CBC, BMP 02/26/18 06:20 02/25/18 21:00 Assessment/Plan AP: T2DM with hyperglycemia: A1c 15.1 Rt foot ulcer BGM QACHS Nutrition consult Levemir 10 units daily at HS Change Novolog SS coverage ABx as per ID Wound care as per Podiatry Will F/U
[2018-02-26] MEDS: HEPARIN NA (PORCINE) 5,000 UNITS/ML 1ML VIAL SQ SCH ×2 (09:20→22:19)
[2018-02-26] MEDS: RANITIDINE HCL 150 MG TABLET (FP) PO SCH ×2 (09:20→22:19)
[2018-02-26] MEDS: COLLAGENASE CLOSTRIDIUM HIST. 30 GRAMS TUBE TP SCH (12:14)
--- NOTE | 2018-02-26 15:51 | PN ---
Progress Note (short form) - Note Progress Note: FUV right big toe. No complaints. vss. Tmax 98.4 +necrotic tissue in a grade 3 wound sub right hallux, -cellulitis, -koki drainage today, strep and staph in wound, wbc=12.6 om pvd? cellulitis Awaiting MRI report. Will follow. Continue Santyl dressing changes. Will discuss with patient further options once MRI confirmed.
--- NOTE | 2018-02-26 17:01 | PN ---
Progress Note, Physician History of Present Illness: stable no new issues multiple organisms from the wound mri report awaited - Current Medication List Current Medications: Active Medications Acetaminophen (Tylenol -) 650 mg PO Q6H PRN PRN Reason: FEVER Last Admin: 02/25/18 00:04 Dose: 650 mg Clindamycin HCl (Cleocin -) 300 mg PO Q6HPO [facility] Last Admin: 02/26/18 12:15 Dose: Not Given Collagenase (Santyl -) 1 applic TP DAILY [facility]; Protocol Last Admin: 02/26/18 12:14 Dose: 1 applic Heparin Sodium (Porcine) (Heparin -) 5,000 unit SQ BID [facility] Last Admin: 02/26/18 09:20 Dose: 5,000 unit Piperacillin Sod/Tazobactam (Sod 3.375 gm/ Dextrose) 50 mls @ 100 mls/hr IVPB Q8H-IV [facility]; Protocol Last Admin: 02/26/18 09:21 Dose: 100 mls/hr Insulin Aspart (Novolog Vial Sliding Scale -) 1 vial SQ HS [facility]; Protocol Insulin Aspart (Novolog Vial Sliding Scale -) 1 vial SQ TIDAC [facility]; Protocol Insulin Detemir (Levemir Vial) 10 units SQ HS [facility] Metformin HCl (Glucophage -) 500 mg PO BIDI [facility] Last Admin: 02/26/18 06:13 Dose: 500 mg Morphine Sulfate (Morphine Sulfate) 2 mg IVPUSH Q4H PRN PRN Reason: PAIN LEVEL 7 - 10 Ondansetron HCl (Zofran Injection) 4 mg IVPUSH Q4H PRN PRN Reason: NAUSEA AND/OR VOMITING Oxycodone HCl (Roxicodone -) 10 mg PO Q6H PRN PRN Reason: PAIN LEVEL 4 - 6 Last Admin: 02/25/18 06:31 Dose: 10 mg Ranitidine HCl (Zantac -) 150 mg PO BID [facility] Last Admin: 02/26/18 09:20 Dose: 150 mg Senna/Docusate Sodium (Pericolace -) 2 tablet PO HS PRN PRN Reason: CONSTIPATION Last Admin: 02/25/18 21:18 Dose: 2 tablet - Objective Vital Signs: Vital Signs Temperature 98.9 F 02/26/18 15:11 Pulse Rate 93 H 02/26/18 15:11 Respiratory Rate 18 02/26/18 15:11 Blood Pressure 121/73 02/26/18 15:11 O2 Sat by Pulse Oximetry (%) 99 02/26/18 09:00 Constitutional: Yes: No Distress, Calm Cardiovascular: Yes: Regular Rate and Rhythm Respiratory: Yes: Regular, CTA Bilaterally Gastrointestinal: Yes: Normal Bowel Sounds, Soft Musculoskeletal: Yes: WNL Extremities: Yes: Other Integumentary: Yes: Erythema Wound/Incision: Yes: Dressing Dry and Intact Neurological: Yes: Alert, Oriented Psychiatric: Yes: Alert, Oriented Labs: CBC, BMP 02/26/18 06:20 02/25/18 21:00 INR, PTT INR 1.09 (0.82-1.09) 02/23/18 18:27 Assessment/Plan patient now also has uti r/o osteo (1) Cellulitis of left foot Assessment/Plan: iv abx, id and podiatry Code(s): L03.116 - CELLULITIS OF LEFT LOWER LIMB (2) Hyperglycemia Code(s): R73.9 - HYPERGLYCEMIA, UNSPECIFIED (3) Right foot ulcer Code(s): L97.519 - NON-PRS CHRONIC ULCER OTH PRT RIGHT FOOT W UNSP SEVERITY 4 uti esbl plan awaiting result of the mri report continue monitoring rest as per the primary team wound care podiatry on case
[2018-02-26] MEDS ORDERED: ERTAPENEM SODIUM 1 GM/50 ML PRE-DOCKED IVPB SCH (17:15)
[2018-02-26] MEDS ORDERED: PT OWN MED DRAWER 7, Y5N ONE ×2 (17:19→17:32)
[2018-02-26] MEDS: MORPHINE SULFATE 2 MG/ML VIAL IVPUSH PRN (17:24)
[2018-02-26] MEDS: ONDANSETRON 4 MG/2 ML VIAL IVPUSH PRN ×2 (17:25→22:31)
[2018-02-26] MEDS: ERTAPENEM SODIUM 1 GM in SODIUM CHLORIDE 50 ML IVPB SCH (17:38)
[2018-02-26] MEDS: VANCOMYCIN 1,000 MG in DEXTROSE 5%-WATER - 250 ML IVPB SCH (17:38)
--- NOTE | 2018-02-26 18:27 | PN ---
Progress Note, Physician - Current Medication List Current Medications: Active Medications Acetaminophen (Tylenol -) 650 mg PO Q6H PRN PRN Reason: FEVER Last Admin: 02/25/18 00:04 Dose: 650 mg Collagenase (Santyl -) 1 applic TP DAILY [facility]; Protocol Last Admin: 02/26/18 12:14 Dose: 1 applic Heparin Sodium (Porcine) (Heparin -) 5,000 unit SQ BID [facility] Last Admin: 02/26/18 09:20 Dose: 5,000 unit Vancomycin HCl 1,000 mg/ (Dextrose) 250 mls @ 200 mls/hr IVPB Q24H [facility]; Protocol Last Admin: 02/26/18 17:38 Dose: 200 mls/hr Ertapenem 1 gm/ Sodium (Chloride) 50 mls @ 100 mls/hr IVPB DAILY [facility] Last Admin: 02/26/18 17:38 Dose: 100 mls/hr Insulin Aspart (Novolog Vial Sliding Scale -) 1 vial SQ HS [facility]; Protocol Insulin Aspart (Novolog Vial Sliding Scale -) 1 vial SQ TIDAC [facility]; Protocol Last Admin: 02/26/18 17:23 Dose: 6 units Insulin Detemir (Levemir Vial) 10 units SQ HS [facility] Metformin HCl (Glucophage -) 500 mg PO BIDI [facility] Last Admin: 02/26/18 17:23 Dose: 500 mg Morphine Sulfate (Morphine Sulfate) 2 mg IVPUSH Q4H PRN PRN Reason: PAIN LEVEL 7 - 10 Last Admin: 02/26/18 17:24 Dose: 2 mg Ondansetron HCl (Zofran Injection) 4 mg IVPUSH Q4H PRN PRN Reason: NAUSEA AND/OR VOMITING Last Admin: 02/26/18 17:25 Dose: 4 mg Oxycodone HCl (Roxicodone -) 10 mg PO Q6H PRN PRN Reason: PAIN LEVEL 4 - 6 Last Admin: 02/25/18 06:31 Dose: 10 mg Ranitidine HCl (Zantac -) 150 mg PO BID [facility] Last Admin: 02/26/18 09:20 Dose: 150 mg Senna/Docusate Sodium (Pericolace -) 2 tablet PO HS PRN PRN Reason: CONSTIPATION Last Admin: 02/25/18 21:18 Dose: 2 tablet - Objective Vital Signs: Vital Signs Temperature 98 F 07/19/18 16:10 Pulse Rate 94 H 02/26/18 16:10 Respiratory Rate 20 02/26/18 16:10 Blood Pressure 125/77 02/26/18 16:10 O2 Sat by Pulse Oximetry (%) 99 02/26/18 09:00 Constitutional: Yes: No Distress HENT: Yes: Atraumatic Neck: Yes: Supple Cardiovascular: Yes: Regular Rate and Rhythm Respiratory: Yes: CTA Bilaterally Gastrointestinal: Yes: Normal Bowel Sounds Extremities: Yes: Other (left foot celulitis) Neurological: Yes: Alert, Oriented Labs: CBC, BMP 02/26/18 06:20 02/25/18 21:00 INR, PTT INR 1.09 (0.82-1.09) 02/23/18 18:27 Problem List - Problems (1) Cellulitis of left foot Assessment/Plan: iv abx, id and podiatry wound care dressing change Code(s): L03.116 - CELLULITIS OF LEFT LOWER LIMB (2) Hyperglycemia Code(s): R73.9 - HYPERGLYCEMIA, UNSPECIFIED (3) Right foot ulcer Code(s): L97.519 - NON-PRS CHRONIC ULCER OTH PRT RIGHT FOOT W UNSP SEVERITY (4) Diabetes Assessment/Plan: bgms sliding scale insulin endo consult Code(s): E11.9 - TYPE 2 DIABETES MELLITUS WITHOUT COMPLICATIONS
[2018-02-26 21:57] LABS: ALBUMIN 2.1 g/dl (3.4-5.0); ANION GAP 8 (8-16); BILIRUBIN,TOTAL 0.2 mg/dL (0.2-1.0); BLOOD UREA NITROGEN 12 mg/dL (7-18); CALCIUM 8.3 mg/dL (8.5-10.1); CHLORIDE 104 mmol/L (98-107); CO2 27 mmol/L (21-32); CREATININE 0.8 mg/dL (0.55-1.02); GLUCOSE,RANDOM 253 mg/dL (74-106); POTASSIUM 3.8 mmol/L (3.5-5.1); SGOT/AST 14 U/L (15-37); SGPT/ALT 13 U/L (12-78); SODIUM 139 mmol/L (136-145); TOT PROT 6.3 g/dl (6.4-8.2)
[2018-02-26 21:58] LABS: ALK PHOS 107 U/L (45-117)
[2018-02-26] MEDS: INSULIN (LEVEMIR) 100 UNITS/ML UNITS SQ SCH (22:18)
[2018-02-27] MEDS: metFORMIN HCL 500 MG TABLET (FP) PO SCH ×2 (06:47→17:56)
[2018-02-27] MEDS: INSULIN SLIDING SCALE (NOVOLOG) 1 VIAL SQ SCH ×4 (06:47→21:16)
--- NOTE | 2018-02-27 08:56 | PN ---
Progress Note (short form) - Note Progress Note: C/O Nausea No diarrheoa Vital Signs Period Temp Pulse Resp BP Sys/Burns Pulse Ox Last 24 Hr 98 F-98.9 F 93-94 18-20 121-125/73-77 99 PE: AOx3 Neck: Supple, No JVD HEENT: EOMI Lungs: CTA CVS: A1S2 Abd: Benign Ext: Rt foot dressing. No edema Neuro: No foca deficit CMP Sodium 139 mmol/L (136-145) 02/26/18 21:00 Potassium 3.8 mmol/L (3.5-5.1) 02/26/18 21:00 Chloride 104 mmol/L (98-107) 02/26/18 21:00 Carbon Dioxide 27 mmol/L (21-32) 02/26/18 21:00 Anion Gap 8 (8-16) 02/26/18 21:00 BUN 12 mg/dL (7-18) 02/26/18 21:00 Creatinine 0.8 mg/dL (0.55-1.02) 02/26/18 21:00 Creat Clearance w eGFR > 60 (>60) 02/26/18 21:00 POC Glucometer 124 UNITS (80-120) 02/27/18 06:45 Random Glucose 253 mg/dL (74-106) H 02/26/18 21:00 Hemoglobin A1c % 15.1 % (4.8-6.0) H 02/25/18 06:50 Lactic Acid 1.6 mmol/L (0.0-2.0) 02/23/18 18:27 Calcium 8.3 mg/dL (8.5-10.1) L 02/26/18 21:00 Total Bilirubin 0.2 mg/dL (0.2-1.0) 02/26/18 21:00 AST 14 U/L (15-37) L 02/26/18 21:00 ALT 13 U/L (12-78) 02/26/18 21:00 Alkaline Phosphatase 107 U/L (45-117) 02/26/18 21:00 Troponin I < 0.02 ng/ml (0.00-0.05) 02/23/18 18:27 C-Reactive Protein 19.7 MG/DL (0.00-0.3) H 02/24/18 19:16 Total Protein 6.3 g/dl (6.4-8.2) L 02/26/18 21:00 Albumin 2.1 g/dl (3.4-5.0) L 02/26/18 21:00 Current Medications Generic Name Dose Route Start Last Admin Trade Name Amishq PRN Reason Stop Dose Admin Acetaminophen 650 mg 02/23/18 20:51 02/25/18 00:04 Tylenol - PO 650 mg Q6H PRN Administration FEVER Collagenase 1 applic 02/24/18 17:30 02/26/18 12:14 Santyl - TP 1 applic DAILY [facility] Administration Protocol Heparin Sodium (Porcine) 5,000 unit 02/23/18 22:00 02/26/18 22:19 Heparin - SQ 5,000 unit BID [facility] Administration Vancomycin HCl 1,000 mg/ 250 mls @ 200 mls/hr 02/26/18 17:00 02/26/18 17:38 Dextrose IVPB 200 mls/hr Q24H [facility] Administration Protocol Ertapenem 1 gm/ Sodium 50 mls @ 100 mls/hr 02/26/18 17:15 02/26/18 17:38 Chloride IVPB 100 mls/hr DAILY [facility] Administration Insulin Aspart 1 vial 02/26/18 22:00 02/26/18 22:19 Novolog Vial Sliding Scale - SQ 2 units HS [facility] Administration Protocol Insulin Aspart 1 vial 02/26/18 16:30 02/27/18 06:47 Novolog Vial Sliding Scale - SQ 2 units TIDAC [facility] Administration Protocol Insulin Detemir 10 units 02/26/18 22:00 02/26/18 22:18 Levemir Vial SQ 10 units HS [facility] Administration Metformin HCl 500 mg 02/24/18 07:00 02/27/18 06:47 Glucophage - PO 500 mg BIDI [facility] Administration Morphine Sulfate 2 mg 02/25/18 16:22 02/26/18 17:24 Morphine Sulfate IVPUSH 2 mg Q4H PRN Administration PAIN LEVEL 7 - 10 Ondansetron HCl 4 mg 02/25/18 16:23 02/26/18 22:31 Zofran Injection IVPUSH 4 mg Q4H PRN Administration NAUSEA AND/OR VOMITING Ranitidine HCl 150 mg 02/23/18 22:00 02/26/18 22:19 Zantac - PO 150 mg BID [facility] Administration Senna/Docusate Sodium 2 tablet 02/25/18 19:48 02/25/18 21:18 Pericolace - PO 2 tablet HS PRN Administration CONSTIPATION AP: T2DM with hyperglycemia: A1c 15.1 Rt foot ulcer BGM QACHS Nutrition consult Levemir 10 units daily at HS Contine Novolog SS coverage ABx as per ID Wound care as per Podiatry Will be away until March 10. Dr Benítez is covering.
[2018-02-27] MEDS ORDERED: PT OWN MED DRAWER 7, Y5N ONE ×2 (09:35→17:27)
[2018-02-27] MEDS: HEPARIN NA (PORCINE) 5,000 UNITS/ML 1ML VIAL SQ SCH ×2 (09:42→21:14)
[2018-02-27] MEDS: RANITIDINE HCL 150 MG TABLET (FP) PO SCH ×2 (09:42→21:18)
[2018-02-27] MEDS: ERTAPENEM SODIUM 1 GM in SODIUM CHLORIDE 50 ML IVPB SCH (09:43)
--- NOTE | 2018-02-27 11:30 | PN ---
Progress Note, Physician - Current Medication List Current Medications: Active Medications Acetaminophen (Tylenol -) 650 mg PO Q6H PRN PRN Reason: FEVER Last Admin: 02/25/18 00:04 Dose: 650 mg Collagenase (Santyl -) 1 applic TP DAILY [facility]; Protocol Last Admin: 02/26/18 12:14 Dose: 1 applic Heparin Sodium (Porcine) (Heparin -) 5,000 unit SQ BID [facility] Last Admin: 02/27/18 09:42 Dose: 5,000 unit Vancomycin HCl 1,000 mg/ (Dextrose) 250 mls @ 200 mls/hr IVPB Q24H [facility]; Protocol Last Admin: 02/26/18 17:38 Dose: 200 mls/hr Ertapenem 1 gm/ Sodium (Chloride) 50 mls @ 100 mls/hr IVPB DAILY [facility] Last Admin: 02/27/18 09:43 Dose: 100 mls/hr Insulin Aspart (Novolog Vial Sliding Scale -) 1 vial SQ HS [facility]; Protocol Last Admin: 02/26/18 22:19 Dose: 2 units Insulin Aspart (Novolog Vial Sliding Scale -) 1 vial SQ TIDAC [facility]; Protocol Last Admin: 02/27/18 06:47 Dose: 2 units Insulin Detemir (Levemir Vial) 10 units SQ HS [facility] Last Admin: 02/26/18 22:18 Dose: 10 units Metformin HCl (Glucophage -) 500 mg PO BIDI [facility] Last Admin: 02/27/18 06:47 Dose: 500 mg Morphine Sulfate (Morphine Sulfate) 2 mg IVPUSH Q4H PRN PRN Reason: PAIN LEVEL 7 - 10 Last Admin: 02/26/18 17:24 Dose: 2 mg Ondansetron HCl (Zofran Injection) 4 mg IVPUSH Q4H PRN PRN Reason: NAUSEA AND/OR VOMITING Last Admin: 02/26/18 22:31 Dose: 4 mg Ranitidine HCl (Zantac -) 150 mg PO BID [facility] Last Admin: 02/27/18 09:42 Dose: 150 mg Senna/Docusate Sodium (Pericolace -) 2 tablet PO HS PRN PRN Reason: CONSTIPATION Last Admin: 02/25/18 21:18 Dose: 2 tablet - Objective Vital Signs: Vital Signs Temperature 98 F 02/27/18 06:00 Pulse Rate 94 H 02/27/18 06:00 Respiratory Rate 20 02/27/18 06:00 Blood Pressure 123/73 02/27/18 06:00 O2 Sat by Pulse Oximetry (%) 99 02/26/18 09:00 Constitutional: Yes: No Distress HENT: Yes: Atraumatic Neck: Yes: Supple Cardiovascular: Yes: Regular Rate and Rhythm Respiratory: Yes: CTA Bilaterally Gastrointestinal: Yes: Normal Bowel Sounds Extremities: Yes: WNL, Other (r foot cellilitis) Neurological: Yes: Alert, Oriented Labs: CBC, BMP 02/26/18 06:20 02/26/18 21:00 INR, PTT INR 1.09 (0.82-1.09) 02/23/18 18:27 Problem List - Problems (1) Cellulitis of left foot Assessment/Plan: iv abx, id and podiatry wound care dressing change Code(s): L03.116 - CELLULITIS OF LEFT LOWER LIMB (2) Hyperglycemia Code(s): R73.9 - HYPERGLYCEMIA, UNSPECIFIED (3) Right foot ulcer Code(s): L97.519 - NON-PRS CHRONIC ULCER OTH PRT RIGHT FOOT W UNSP SEVERITY (4) Diabetes Assessment/Plan: bgms sliding scale insulin endo consult..done Code(s): E11.9 - TYPE 2 DIABETES MELLITUS WITHOUT COMPLICATIONS
--- NOTE | 2018-02-27 12:03 | PN ---
Progress Note, Physician History of Present Illness: patient doing well no complaints awaiting for mri reports - Current Medication List Current Medications: Active Medications Acetaminophen (Tylenol -) 650 mg PO Q6H PRN PRN Reason: FEVER Last Admin: 02/25/18 00:04 Dose: 650 mg Collagenase (Santyl -) 1 applic TP DAILY [facility]; Protocol Last Admin: 02/26/18 12:14 Dose: 1 applic Heparin Sodium (Porcine) (Heparin -) 5,000 unit SQ BID [facility] Last Admin: 02/27/18 09:42 Dose: 5,000 unit Vancomycin HCl 1,000 mg/ (Dextrose) 250 mls @ 200 mls/hr IVPB Q24H [facility]; Protocol Last Admin: 02/26/18 17:38 Dose: 200 mls/hr Ertapenem 1 gm/ Sodium (Chloride) 50 mls @ 100 mls/hr IVPB DAILY [facility] Last Admin: 02/27/18 09:43 Dose: 100 mls/hr Insulin Aspart (Novolog Vial Sliding Scale -) 1 vial SQ HS [facility]; Protocol Last Admin: 02/26/18 22:19 Dose: 2 units Insulin Aspart (Novolog Vial Sliding Scale -) 1 vial SQ TIDAC [facility]; Protocol Last Admin: 02/27/18 06:47 Dose: 2 units Insulin Detemir (Levemir Vial) 10 units SQ HS [facility] Last Admin: 02/26/18 22:18 Dose: 10 units Metformin HCl (Glucophage -) 500 mg PO BIDI [facility] Last Admin: 02/27/18 06:47 Dose: 500 mg Morphine Sulfate (Morphine Sulfate) 2 mg IVPUSH Q4H PRN PRN Reason: PAIN LEVEL 7 - 10 Last Admin: 02/26/18 17:24 Dose: 2 mg Ondansetron HCl (Zofran Injection) 4 mg IVPUSH Q4H PRN PRN Reason: NAUSEA AND/OR VOMITING Last Admin: 02/26/18 22:31 Dose: 4 mg Ranitidine HCl (Zantac -) 150 mg PO BID [facility] Last Admin: 02/27/18 09:42 Dose: 150 mg Senna/Docusate Sodium (Pericolace -) 2 tablet PO HS PRN PRN Reason: CONSTIPATION Last Admin: 02/25/18 21:18 Dose: 2 tablet - Objective Vital Signs: Vital Signs Temperature 98 F 02/27/18 06:00 Pulse Rate 94 H 07/20/18 06:00 Respiratory Rate 20 02/27/18 06:00 Blood Pressure 123/73 02/27/18 06:00 O2 Sat by Pulse Oximetry (%) 99 02/26/18 09:00 Constitutional: Yes: No Distress, Calm Cardiovascular: Yes: Regular Rate and Rhythm Respiratory: Yes: Regular, CTA Bilaterally Gastrointestinal: Yes: Normal Bowel Sounds, Soft Musculoskeletal: Yes: WNL Extremities: Yes: Other Wound/Incision: Yes: Dressing Dry and Intact, Other Neurological: Yes: Alert, Oriented Labs: CBC, BMP 02/26/18 06:20 02/26/18 21:00 INR, PTT INR 1.09 (0.82-1.09) 02/23/18 18:27 Assessment/Plan patient now also has uti r/o osteo (1) Cellulitis of left foot Assessment/Plan: iv abx, id and podiatry Code(s): L03.116 - CELLULITIS OF LEFT LOWER LIMB (2) Hyperglycemia Code(s): R73.9 - HYPERGLYCEMIA, UNSPECIFIED (3) Right foot ulcer Code(s): L97.519 - NON-PRS CHRONIC ULCER OTH PRT RIGHT FOOT W UNSP SEVERITY 4 uti esbl plan awaiting result of the mri report continue monitoring rest as per the primary team wound care podiatry on case
[2018-02-27] MEDS: COLLAGENASE CLOSTRIDIUM HIST. 30 GRAMS TUBE TP SCH (12:21)
[2018-02-27] MEDS: ONDANSETRON 4 MG/2 ML VIAL IVPUSH PRN (12:47)
[2018-02-27] MEDS: MORPHINE SULFATE 2 MG/ML VIAL IVPUSH PRN (12:48)
[2018-02-27] MEDS: VANCOMYCIN 1,000 MG in DEXTROSE 5%-WATER - 250 ML IVPB SCH (17:52)
[2018-02-27] MEDS ORDERED: INSULIN (NOVOLOG) ASPART 100 UNITS/ML 10ML VIAL ONE (20:47)
[2018-02-27] MEDS: INSULIN (LEVEMIR) 100 UNITS/ML UNITS SQ SCH (21:16)
[2018-02-28] MEDS: metFORMIN HCL 500 MG TABLET (FP) PO SCH ×2 (06:05→17:45)
[2018-02-28] MEDS: INSULIN SLIDING SCALE (NOVOLOG) 1 VIAL SQ SCH ×4 (06:06→21:40)
[2018-02-28] MEDS: ERTAPENEM SODIUM 1 GM in SODIUM CHLORIDE 50 ML IVPB SCH (10:26)
[2018-02-28] MEDS: RANITIDINE HCL 150 MG TABLET (FP) PO SCH ×2 (10:26→21:39)
[2018-02-28] MEDS: HEPARIN NA (PORCINE) 5,000 UNITS/ML 1ML VIAL SQ SCH ×2 (10:26→21:39)
[2018-02-28] MEDS: COLLAGENASE CLOSTRIDIUM HIST. 30 GRAMS TUBE TP SCH (10:27)
--- NOTE | 2018-02-28 11:39 | PN ---
Progress Note, Physician - Current Medication List Current Medications: Active Medications Acetaminophen (Tylenol -) 650 mg PO Q6H PRN PRN Reason: FEVER Last Admin: 02/25/18 00:04 Dose: 650 mg Collagenase (Santyl -) 1 applic TP DAILY [facility]; Protocol Last Admin: 02/28/18 10:27 Dose: 1 applic Heparin Sodium (Porcine) (Heparin -) 5,000 unit SQ BID [facility] Last Admin: 02/28/18 10:26 Dose: 5,000 unit Vancomycin HCl 1,000 mg/ (Dextrose) 250 mls @ 200 mls/hr IVPB Q24H [facility]; Protocol Last Admin: 02/27/18 17:52 Dose: 200 mls/hr Ertapenem 1 gm/ Sodium (Chloride) 50 mls @ 100 mls/hr IVPB DAILY [facility] Last Admin: 02/28/18 10:26 Dose: 100 mls/hr Insulin Aspart (Novolog Vial Sliding Scale -) 1 vial SQ HS [facility]; Protocol Last Admin: 02/27/18 21:16 Dose: Not Given Insulin Aspart (Novolog Vial Sliding Scale -) 1 vial SQ TIDAC [facility]; Protocol Last Admin: 02/28/18 06:06 Dose: 4 units Insulin Detemir (Levemir Vial) 10 units SQ HS [facility] Last Admin: 02/27/18 21:16 Dose: 10 units Metformin HCl (Glucophage -) 500 mg PO BIDI [facility] Last Admin: 02/28/18 06:05 Dose: 500 mg Morphine Sulfate (Morphine Sulfate) 2 mg IVPUSH Q4H PRN PRN Reason: PAIN LEVEL 7 - 10 Last Admin: 02/27/18 12:48 Dose: 2 mg Ondansetron HCl (Zofran Injection) 4 mg IVPUSH Q4H PRN PRN Reason: NAUSEA AND/OR VOMITING Last Admin: 02/27/18 12:47 Dose: 4 mg Ranitidine HCl (Zantac -) 150 mg PO BID [facility] Last Admin: 02/28/18 10:26 Dose: 150 mg Senna/Docusate Sodium (Pericolace -) 2 tablet PO HS PRN PRN Reason: CONSTIPATION Last Admin: 02/25/18 21:18 Dose: 2 tablet - Objective Vital Signs: Vital Signs Temperature 98.1 F 02/27/18 16:15 Pulse Rate 99 H 07/20/18 16:15 Respiratory Rate 18 02/27/18 16:15 Blood Pressure 133/71 02/27/18 16:15 O2 Sat by Pulse Oximetry (%) 99 02/26/18 09:00 Constitutional: Yes: No Distress HENT: Yes: Atraumatic Neck: Yes: Supple Cardiovascular: Yes: Regular Rate and Rhythm Respiratory: Yes: CTA Bilaterally Gastrointestinal: Yes: Normal Bowel Sounds Extremities: Yes: Other (R foot cellulitis) Neurological: Yes: Alert, Oriented Labs: CBC, BMP 02/26/18 06:20 02/26/18 21:00 INR, PTT INR 1.09 (0.82-1.09) 02/23/18 18:27 Problem List - Problems (1) Cellulitis of left foot Assessment/Plan: iv abx, id and podiatry wound care dressing change Code(s): L03.116 - CELLULITIS OF LEFT LOWER LIMB (2) Hyperglycemia Code(s): R73.9 - HYPERGLYCEMIA, UNSPECIFIED (3) Right foot ulcer Code(s): L97.519 - NON-PRS CHRONIC ULCER OTH PRT RIGHT FOOT W UNSP SEVERITY (4) Diabetes Assessment/Plan: bgms sliding scale insulin endo consult..done Code(s): E11.9 - TYPE 2 DIABETES MELLITUS WITHOUT COMPLICATIONS
--- NOTE | 2018-02-28 12:06 | PN ---
Progress Note (short form) - Note Progress Note: Patient seen yesterday around 2:30pm. FUV right big toe. Complains of headaches. vss. Tmax 98.1 +necrotic tissue in a grade 3 wound sub right hallux, -cellulitis, +om om grade 3 wound Patient seen with [place]yr[place] speaking nurse. Gave her options. Translated by the nurse to the patient. IVABX/HBO/WOund care vs Amputation. Patient opted for no amputation she would like to save toe. Fully made aware of all risks beenfits and alternatives. Re-emphasized that there was a chance that even with conservative tx may need amputation. She understood as transltaed by nurse. Discussed with Dr. Crawford. Will get PICC line and be dc to home. Continue Santyl dressing changes.
--- NOTE | 2018-02-28 12:10 | PN ---
Progress Note, Physician Chief Complaint: FUV right big toe. vss, History of Present Illness: om right big toe - Current Medication List Current Medications: Active Medications Acetaminophen (Tylenol -) 650 mg PO Q6H PRN PRN Reason: FEVER Last Admin: 02/25/18 00:04 Dose: 650 mg Collagenase (Santyl -) 1 applic TP DAILY [facility]; Protocol Last Admin: 02/28/18 10:27 Dose: 1 applic Heparin Sodium (Porcine) (Heparin -) 5,000 unit SQ BID [facility] Last Admin: 02/28/18 10:26 Dose: 5,000 unit Vancomycin HCl 1,000 mg/ (Dextrose) 250 mls @ 200 mls/hr IVPB Q24H [facility]; Protocol Last Admin: 02/27/18 17:52 Dose: 200 mls/hr Ertapenem 1 gm/ Sodium (Chloride) 50 mls @ 100 mls/hr IVPB DAILY [facility] Last Admin: 02/28/18 10:26 Dose: 100 mls/hr Insulin Aspart (Novolog Vial Sliding Scale -) 1 vial SQ HS [facility]; Protocol Last Admin: 02/27/18 21:16 Dose: Not Given Insulin Aspart (Novolog Vial Sliding Scale -) 1 vial SQ TIDAC [facility]; Protocol Last Admin: 02/28/18 06:06 Dose: 4 units Insulin Detemir (Levemir Vial) 10 units SQ HS [facility] Last Admin: 02/27/18 21:16 Dose: 10 units Metformin HCl (Glucophage -) 500 mg PO BIDI [facility] Last Admin: 02/28/18 06:05 Dose: 500 mg Morphine Sulfate (Morphine Sulfate) 2 mg IVPUSH Q4H PRN PRN Reason: PAIN LEVEL 7 - 10 Last Admin: 02/27/18 12:48 Dose: 2 mg Ondansetron HCl (Zofran Injection) 4 mg IVPUSH Q4H PRN PRN Reason: NAUSEA AND/OR VOMITING Last Admin: 02/27/18 12:47 Dose: 4 mg Ranitidine HCl (Zantac -) 150 mg PO BID [facility] Last Admin: 02/28/18 10:26 Dose: 150 mg Senna/Docusate Sodium (Pericolace -) 2 tablet PO HS PRN PRN Reason: CONSTIPATION Last Admin: 02/25/18 21:18 Dose: 2 tablet - Objective Vital Signs: Vital Signs Temperature 98.1 F 02/27/18 16:15 Pulse Rate 99 H 02/27/18 16:15 Respiratory Rate 18 02/27/18 16:15 Blood Pressure 133/71 02/27/18 16:15 O2 Sat by Pulse Oximetry (%) 99 02/26/18 09:00 Labs: CBC, BMP 02/26/18 06:20 02/26/18 21:00 INR, PTT INR 1.09 (0.82-1.09) 02/23/18 18:27 Assessment/Plan om grade 3 wound Opting for IVABX, Wound care and HBO. Post op shoe left. Recommend orthowedge outpatient. Will follow till dc. cbc with diff ordered. Patient states she did discuss headache with Medicine.
[2018-02-28] MEDS ORDERED: PICC LINE 8 ML FLUSH PROTOCOL IVPUSH PRN (13:24)
[2018-02-28 14:09] LABS: BASO % 0.8 % (0-2.0); EOS % 0.5 % (0-4.5); HEMATOCRIT 29.7 % (32.4-45.2); HEMOGLOBIN 10.2 GM/dL (10.7-15.3); LYMPH % 14.7 % (8-40); MCH 29.1 pg (25.7-33.7); MCHC 34.5 g/dl (32.0-36.0); MEAN CELL VOLUME 84.6 fl (80-96); MONO % 6.1 % (3.8-10.2); NEUT % 77.9 % (42.8-82.8); PLATELET COUNT 346 K/MM3 (134-434); RBC 3.51 M/mm3 (3.60-5.2); RDW 12.8 % (11.6-15.6)
--- NOTE | 2018-02-28 17:15 | PN ---
Progress Note, Physician History of Present Illness: Pt seen and examined. States she feels well overall. No new complaints. - Current Medication List Current Medications: Active Medications Acetaminophen (Tylenol -) 650 mg PO Q6H PRN PRN Reason: FEVER Last Admin: 02/25/18 00:04 Dose: 650 mg Collagenase (Santyl -) 1 applic TP DAILY [facility]; Protocol Last Admin: 02/28/18 10:27 Dose: 1 applic Heparin Sodium (Porcine) (Heparin -) 5,000 unit SQ BID [facility] Last Admin: 02/28/18 10:26 Dose: 5,000 unit IV Flush (Picc Line Flush) 8 ml IVPUSH PRN PRN PRN Reason: Protocol Vancomycin HCl 1,000 mg/ (Dextrose) 250 mls @ 200 mls/hr IVPB Q24H [facility]; Protocol Last Admin: 02/27/18 17:52 Dose: 200 mls/hr Ertapenem 1 gm/ Sodium (Chloride) 50 mls @ 100 mls/hr IVPB DAILY [facility] Last Admin: 02/28/18 10:26 Dose: 100 mls/hr Insulin Aspart (Novolog Vial Sliding Scale -) 1 vial SQ HS [facility]; Protocol Last Admin: 02/27/18 21:16 Dose: Not Given Insulin Aspart (Novolog Vial Sliding Scale -) 1 vial SQ TIDAC [facility]; Protocol Last Admin: 02/28/18 13:04 Dose: 2 units Insulin Detemir (Levemir Vial) 10 units SQ HS [facility] Last Admin: 02/27/18 21:16 Dose: 10 units Metformin HCl (Glucophage -) 500 mg PO BIDI [facility] Last Admin: 02/28/18 06:05 Dose: 500 mg Ondansetron HCl (Zofran Injection) 4 mg IVPUSH Q4H PRN PRN Reason: NAUSEA AND/OR VOMITING Last Admin: 02/27/18 12:47 Dose: 4 mg Ranitidine HCl (Zantac -) 150 mg PO BID [facility] Last Admin: 02/28/18 10:26 Dose: 150 mg Senna/Docusate Sodium (Pericolace -) 2 tablet PO HS PRN PRN Reason: CONSTIPATION Last Admin: 02/25/18 21:18 Dose: 2 tablet - Objective Vital Signs: Vital Signs Temperature 98.6 F 02/28/18 15:19 Pulse Rate 93 H 02/28/18 15:19 Respiratory Rate 18 02/28/18 15:19 Blood Pressure 109/48 02/28/18 15:19 O2 Sat by Pulse Oximetry (%) 99 02/26/18 09:00 Constitutional: Yes: No Distress, Calm Cardiovascular: Yes: Regular Rate and Rhythm Respiratory: Yes: Regular Gastrointestinal: Yes: Normal Bowel Sounds, Soft Genitourinary: Yes: WNL Wound/Incision: Yes: Other (Rt foot plantar ulcer with erythema/edema of forefoot) Labs: CBC, BMP 02/28/18 13:35 02/26/18 21:00 INR, PTT INR 1.09 (0.82-1.09) 02/23/18 18:27 Problem List - Problems (1) Cellulitis of left foot Code(s): L03.116 - CELLULITIS OF LEFT LOWER LIMB (2) Diabetes Code(s): E11.9 - TYPE 2 DIABETES MELLITUS WITHOUT COMPLICATIONS (3) Right foot ulcer Code(s): L97.519 - NON-PRS CHRONIC ULCER OTH PRT RIGHT FOOT W UNSP SEVERITY Assessment/Plan Infected Rt plantar foot ulcer/OM DM ESBL + E.coli UTI - continue IV antibiotics, will need for 5 more wks - PICC ordered - Vancomycin Trough ordered prior to tomorrow's dose - monitor esr, crp, cbc, bmp - continue wound care
[2018-02-28] MEDS ORDERED: PT OWN MED DRAWER 7, Y5N ONE ×5 (17:31→23:42)
[2018-02-28] MEDS: VANCOMYCIN 1,000 MG in DEXTROSE 5%-WATER - 250 ML IVPB SCH (17:45)
[2018-02-28] MEDS: INSULIN (LEVEMIR) 100 UNITS/ML UNITS SQ SCH (21:39)
[2018-03-01] MEDS: metFORMIN HCL 500 MG TABLET (FP) PO SCH ×2 (06:52→17:56)
[2018-03-01] MEDS: INSULIN SLIDING SCALE (NOVOLOG) 1 VIAL SQ SCH ×4 (06:53→21:26)
[2018-03-01] MEDS ORDERED: PT OWN MED DRAWER 7, Y5N ONE ×4 (10:47→22:24)
[2018-03-01] MEDS: ERTAPENEM SODIUM 1 GM in SODIUM CHLORIDE 50 ML IVPB SCH (10:53)
[2018-03-01] MEDS: RANITIDINE HCL 150 MG TABLET (FP) PO SCH ×2 (10:53→21:25)
[2018-03-01] MEDS: COLLAGENASE CLOSTRIDIUM HIST. 30 GRAMS TUBE TP SCH (10:53)
[2018-03-01] MEDS: HEPARIN NA (PORCINE) 5,000 UNITS/ML 1ML VIAL SQ SCH ×2 (10:53→21:25)
--- NOTE | 2018-03-01 11:42 | PN ---
Progress Note, Physician - Current Medication List Current Medications: Active Medications Acetaminophen (Tylenol -) 650 mg PO Q6H PRN PRN Reason: FEVER Last Admin: 02/25/18 00:04 Dose: 650 mg Collagenase (Santyl -) 1 applic TP DAILY [facility]; Protocol Last Admin: 03/01/18 10:53 Dose: 1 applic Heparin Sodium (Porcine) (Heparin -) 5,000 unit SQ BID [facility] Last Admin: 03/01/18 10:53 Dose: 5,000 unit IV Flush (Picc Line Flush) 8 ml IVPUSH PRN PRN PRN Reason: Protocol Vancomycin HCl 1,000 mg/ (Dextrose) 250 mls @ 200 mls/hr IVPB Q24H [facility]; Protocol Last Admin: 02/28/18 17:45 Dose: 200 mls/hr Ertapenem 1 gm/ Sodium (Chloride) 50 mls @ 100 mls/hr IVPB DAILY [facility] Last Admin: 03/01/18 10:53 Dose: 100 mls/hr Insulin Aspart (Novolog Vial Sliding Scale -) 1 vial SQ HS [facility]; Protocol Last Admin: 02/28/18 21:40 Dose: Not Given Insulin Aspart (Novolog Vial Sliding Scale -) 1 vial SQ TIDAC [facility]; Protocol Last Admin: 03/01/18 06:53 Dose: Not Given Insulin Detemir (Levemir Vial) 10 units SQ HS [facility] Last Admin: 02/28/18 21:39 Dose: 10 units Metformin HCl (Glucophage -) 500 mg PO BIDI [facility] Last Admin: 03/01/18 06:52 Dose: 500 mg Ondansetron HCl (Zofran Injection) 4 mg IVPUSH Q4H PRN PRN Reason: NAUSEA AND/OR VOMITING Last Admin: 02/27/18 12:47 Dose: 4 mg Ranitidine HCl (Zantac -) 150 mg PO BID [facility] Last Admin: 03/01/18 10:53 Dose: 150 mg Senna/Docusate Sodium (Pericolace -) 2 tablet PO HS PRN PRN Reason: CONSTIPATION Last Admin: 02/25/18 21:18 Dose: 2 tablet - Objective Vital Signs: Vital Signs Temperature 98.3 F 03/01/18 06:00 Pulse Rate 39 L 03/01/18 06:00 Respiratory Rate 20 03/01/18 06:00 Blood Pressure 118/70 03/01/18 06:00 O2 Sat by Pulse Oximetry (%) 99 02/26/18 09:00 Constitutional: Yes: No Distress HENT: Yes: Atraumatic Neck: Yes: Supple Cardiovascular: Yes: Regular Rate and Rhythm Gastrointestinal: Yes: Normal Bowel Sounds Extremities: Yes: Other (R foot celulitis) Neurological: Yes: Alert, Oriented Labs: CBC, BMP 02/28/18 13:35 02/26/18 21:00 INR, PTT INR 1.09 (0.82-1.09) 02/23/18 18:27 Problem List - Problems (1) Cellulitis of left foot Assessment/Plan: iv abx, id and podiatry wound care dressing change for picc line in am Code(s): L03.116 - CELLULITIS OF LEFT LOWER LIMB (2) Hyperglycemia Code(s): R73.9 - HYPERGLYCEMIA, UNSPECIFIED (3) Right foot ulcer Code(s): L97.519 - NON-PRS CHRONIC ULCER OTH PRT RIGHT FOOT W UNSP SEVERITY (4) Diabetes Assessment/Plan: bgms sliding scale insulin endo consult..done Code(s): E11.9 - TYPE 2 DIABETES MELLITUS WITHOUT COMPLICATIONS
[2018-03-01] MEDS: VANCOMYCIN 1 GM PREMIX - 1 GM/200 ML BAG IVPB SCH (17:56)
[2018-03-01] MEDS ORDERED: VANCOMYCIN 1,000 MG in DEXTROSE 5%-WATER - 250 ML IVPB SCH (18:00)
--- NOTE | 2018-03-01 19:08 | PN ---
Progress Note, Physician History of Present Illness: Pt is alert, afebrile. No new complaints. Vancomycin level noted. - Current Medication List Current Medications: Active Medications Acetaminophen (Tylenol -) 650 mg PO Q6H PRN PRN Reason: FEVER Last Admin: 02/25/18 00:04 Dose: 650 mg Collagenase (Santyl -) 1 applic TP DAILY [facility]; Protocol Last Admin: 03/01/18 10:53 Dose: 1 applic Heparin Sodium (Porcine) (Heparin -) 5,000 unit SQ BID [facility] Last Admin: 03/01/18 10:53 Dose: 5,000 unit IV Flush (Picc Line Flush) 8 ml IVPUSH PRN PRN PRN Reason: Protocol Ertapenem 1 gm/ Sodium (Chloride) 50 mls @ 100 mls/hr IVPB DAILY [facility] Last Admin: 03/01/18 10:53 Dose: 100 mls/hr Vancomycin HCl (Vancomycin 1 Gm Premix -) 1 gm in 200 mls @ 133.333 mls/hr IVPB BID@0600,1800 [facility]; Protocol Last Admin: 03/01/18 17:56 Dose: 133.333 mls/hr Insulin Aspart (Novolog Vial Sliding Scale -) 1 vial SQ HS [facility]; Protocol Last Admin: 02/28/18 21:40 Dose: Not Given Insulin Aspart (Novolog Vial Sliding Scale -) 1 vial SQ TIDAC [facility]; Protocol Last Admin: 03/01/18 18:00 Dose: 4 units Insulin Detemir (Levemir Vial) 10 units SQ HS [facility] Last Admin: 02/28/18 21:39 Dose: 10 units Metformin HCl (Glucophage -) 500 mg PO BIDI [facility] Last Admin: 03/01/18 17:56 Dose: 500 mg Ondansetron HCl (Zofran Injection) 4 mg IVPUSH Q4H PRN PRN Reason: NAUSEA AND/OR VOMITING Last Admin: 02/27/18 12:47 Dose: 4 mg Ranitidine HCl (Zantac -) 150 mg PO BID [facility] Last Admin: 03/01/18 10:53 Dose: 150 mg Senna/Docusate Sodium (Pericolace -) 2 tablet PO HS PRN PRN Reason: CONSTIPATION Last Admin: 02/25/18 21:18 Dose: 2 tablet - Objective Vital Signs: Vital Signs Temperature 98.7 F 03/01/18 18:50 Pulse Rate 84 03/01/18 18:50 Respiratory Rate 18 03/01/18 18:50 Blood Pressure 161/88 03/01/18 18:50 O2 Sat by Pulse Oximetry (%) 99 02/26/18 09:00 Constitutional: Yes: No Distress, Calm Cardiovascular: Yes: Regular Rate and Rhythm Respiratory: Yes: Regular Gastrointestinal: Yes: Normal Bowel Sounds, Soft Extremities: Yes: Erythema (Foot edema/erythema, +plantar ulcer without malodor) Labs: CBC, BMP 02/28/18 13:35 02/26/18 21:00 INR, PTT INR 1.09 (0.82-1.09) 02/23/18 18:27 Vancomycin trough: 4 Problem List - Problems (1) Cellulitis of left foot Code(s): L03.116 - CELLULITIS OF LEFT LOWER LIMB (2) Diabetes Code(s): E11.9 - TYPE 2 DIABETES MELLITUS WITHOUT COMPLICATIONS (3) Right foot ulcer Code(s): L97.519 - NON-PRS CHRONIC ULCER OTH PRT RIGHT FOOT W UNSP SEVERITY Assessment/Plan Infected Rt plantar foot ulcer/OM DM ESBL + E.coli UTI - continue IV antibiotics, Vancomycin level subtherapeutic, dose adjusted - PICC ordered - repeat vancomycin trough prior to 4th dose - monitor esr, crp, cbc, bmp, vancomycin trough at least weekly - continue wound care - tight glycemic control
[2018-03-01] MEDS: INSULIN (LEVEMIR) 100 UNITS/ML UNITS SQ SCH (21:26)
[2018-03-02] MEDS ORDERED: PT OWN MED DRAWER 7, Y5N ONE ×3 (00:42→17:12)
[2018-03-02] MEDS: VANCOMYCIN 1 GM PREMIX - 1 GM/200 ML BAG IVPB SCH ×2 (06:21→17:26)
[2018-03-02] MEDS: metFORMIN HCL 500 MG TABLET (FP) PO SCH ×2 (06:21→17:06)
[2018-03-02] MEDS: INSULIN SLIDING SCALE (NOVOLOG) 1 VIAL SQ SCH ×5 (06:29→21:34)
[2018-03-02] MEDS ORDERED: INSULIN (NOVOLOG) ASPART 100 UNITS/ML 10ML VIAL ONE ×2 (07:01→11:29)
[2018-03-02] MEDS ORDERED: INSULIN (LEVEMIR) 100 UNITS/ML UNITS SQ ONE (07:02)
[2018-03-02 08:49] LABS: ANION GAP 7 (8-16); BLOOD UREA NITROGEN 11 mg/dL (7-18); CALCIUM 8.7 mg/dL (8.5-10.1); CHLORIDE 104 mmol/L (98-107); CO2 29 mmol/L (21-32); CREATININE 0.7 mg/dL (0.55-1.02); GLUCOSE,RANDOM 129 mg/dL (74-106); POTASSIUM 3.9 mmol/L (3.5-5.1); SODIUM 140 mmol/L (136-145)
[2018-03-02] MEDS: ERTAPENEM SODIUM 1 GM in SODIUM CHLORIDE 50 ML IVPB SCH (09:23)
[2018-03-02] MEDS: RANITIDINE HCL 150 MG TABLET (FP) PO SCH ×2 (09:23→21:35)
[2018-03-02] MEDS: HEPARIN NA (PORCINE) 5,000 UNITS/ML 1ML VIAL SQ SCH (09:24)
[2018-03-02] MEDS: COLLAGENASE CLOSTRIDIUM HIST. 30 GRAMS TUBE TP SCH (09:32)
--- NOTE | 2018-03-02 09:38 | PN ---
Progress Note (short form) - Note Progress Note: Patient seen in bed. No picc line yet. FUV right big toe. No more headache. vss. Tmax 98.1 +granulation tissue in a grade 3 wound sub right hallux, -cellulitis, +om om grade 3 wound Plan of care. IVABX/HBO/WOund care vs Amputation. Patient opted for no amputation she would like to save toe. Fully made aware of all risks benfits and alternatives. Discussed with Dr. Crawford. Will get PICC line and be dc to home. Continue Santyl dressing changes. Orthowedge shoe if possible from wound care. will follow till dc.
--- NOTE | 2018-03-02 11:58 | PN ---
Progress Note, Physician History of Present Illness: patient stable no new issues patient has refused surgery - Current Medication List Current Medications: Active Medications Acetaminophen (Tylenol -) 650 mg PO Q6H PRN PRN Reason: FEVER Last Admin: 02/25/18 00:04 Dose: 650 mg Collagenase (Santyl -) 1 applic TP DAILY [facility]; Protocol Last Admin: 03/02/18 09:32 Dose: 1 applic Heparin Sodium (Porcine) (Heparin -) 5,000 unit SQ BID [facility] Last Admin: 03/02/18 09:24 Dose: 5,000 unit IV Flush (Picc Line Flush) 8 ml IVPUSH PRN PRN PRN Reason: Protocol Ertapenem 1 gm/ Sodium (Chloride) 50 mls @ 100 mls/hr IVPB DAILY [facility] Last Admin: 03/02/18 09:23 Dose: 100 mls/hr Vancomycin HCl (Vancomycin 1 Gm Premix -) 1 gm in 200 mls @ 133.333 mls/hr IVPB BID@0600,1800 [facility]; Protocol Last Admin: 03/02/18 06:21 Dose: 133.333 mls/hr Insulin Aspart (Novolog Vial Sliding Scale -) 1 vial SQ HS [facility]; Protocol Last Admin: 03/01/18 21:26 Dose: Not Given Insulin Aspart (Novolog Vial Sliding Scale -) 1 vial SQ TIDAC [facility]; Protocol Last Admin: 03/02/18 11:37 Dose: 4 units Insulin Detemir (Levemir Vial) 10 units SQ HS [facility] Last Admin: 03/01/18 21:26 Dose: 10 units Metformin HCl (Glucophage -) 500 mg PO BIDI [facility] Last Admin: 03/02/18 06:21 Dose: 500 mg Ondansetron HCl (Zofran Injection) 4 mg IVPUSH Q4H PRN PRN Reason: NAUSEA AND/OR VOMITING Last Admin: 02/27/18 12:47 Dose: 4 mg Ranitidine HCl (Zantac -) 150 mg PO BID [facility] Last Admin: 03/02/18 09:23 Dose: 150 mg Senna/Docusate Sodium (Pericolace -) 2 tablet PO HS PRN PRN Reason: CONSTIPATION Last Admin: 02/25/18 21:18 Dose: 2 tablet - Objective Vital Signs: Vital Signs Temperature 98 F 03/02/18 06:00 Pulse Rate 95 H 03/02/18 06:00 Respiratory Rate 03/02/18 06:00 Blood Pressure 132/79 03/02/18 06:00 O2 Sat by Pulse Oximetry (%) 99 02/26/18 09:00 Constitutional: Yes: No Distress, Calm Cardiovascular: Yes: Regular Rate and Rhythm Respiratory: Yes: Regular, CTA Bilaterally Gastrointestinal: Yes: Normal Bowel Sounds, Soft Musculoskeletal: Yes: WNL Extremities: Yes: Other Neurological: Yes: Alert, Oriented Psychiatric: Yes: Alert, Oriented Labs: CBC, BMP 02/28/18 13:35 03/02/18 06:20 INR, PTT INR 1.09 (0.82-1.09) 02/23/18 18:27 Assessment/Plan patient now also has uti r/o osteo (1) Cellulitis of left foot Assessment/Plan: iv abx, id and podiatry Code(s): L03.116 - CELLULITIS OF LEFT LOWER LIMB (2) Hyperglycemia Code(s): R73.9 - HYPERGLYCEMIA, UNSPECIFIED (3) Right foot ulcer Code(s): L97.519 - NON-PRS CHRONIC ULCER OTH PRT RIGHT FOOT W UNSP SEVERITY 4 uti esbl plan vanco till 04/02 vanco is 1gm bid ertapenam 03/11 cbc esr crp bmp wound care
--- NOTE | 2018-03-02 19:33 | PN ---
Progress Note, Physician - Current Medication List Current Medications: Active Medications Acetaminophen (Tylenol -) 650 mg PO Q6H PRN PRN Reason: FEVER Last Admin: 02/25/18 00:04 Dose: 650 mg Collagenase (Santyl -) 1 applic TP DAILY [facility]; Protocol Last Admin: 03/02/18 09:32 Dose: 1 applic Heparin Sodium (Porcine) (Heparin -) 5,000 unit SQ BID [facility] Last Admin: 03/02/18 09:24 Dose: 5,000 unit IV Flush (Picc Line Flush) 8 ml IVPUSH PRN PRN PRN Reason: Protocol Ertapenem 1 gm/ Sodium (Chloride) 50 mls @ 100 mls/hr IVPB DAILY [facility] Last Admin: 03/02/18 09:23 Dose: 100 mls/hr Vancomycin HCl (Vancomycin 1 Gm Premix -) 1 gm in 200 mls @ 133.333 mls/hr IVPB BID@0600,1800 [facility]; Protocol Last Admin: 03/02/18 17:26 Dose: 133.333 mls/hr Insulin Aspart (Novolog Vial Sliding Scale -) 1 vial SQ HS [facility]; Protocol Last Admin: 03/01/18 21:26 Dose: Not Given Insulin Aspart (Novolog Vial Sliding Scale -) 1 vial SQ TIDAC [facility]; Protocol Last Admin: 03/02/18 17:06 Dose: 2 units Insulin Detemir (Levemir Vial) 10 units SQ HS [facility] Last Admin: 03/01/18 21:26 Dose: 10 units Metformin HCl (Glucophage -) 500 mg PO BIDI [facility] Last Admin: 03/02/18 17:06 Dose: 500 mg Ondansetron HCl (Zofran Injection) 4 mg IVPUSH Q4H PRN PRN Reason: NAUSEA AND/OR VOMITING Last Admin: 02/27/18 12:47 Dose: 4 mg Ranitidine HCl (Zantac -) 150 mg PO BID [facility] Last Admin: 03/02/18 09:23 Dose: 150 mg Senna/Docusate Sodium (Pericolace -) 2 tablet PO HS PRN PRN Reason: CONSTIPATION Last Admin: 02/25/18 21:18 Dose: 2 tablet - Objective Vital Signs: Vital Signs Temperature 98.3 F 03/02/18 16:30 Pulse Rate 92 H 03/02/18 16:30 Respiratory Rate 20 03/02/18 16:30 Blood Pressure 153/86 03/02/18 16:30 O2 Sat by Pulse Oximetry (%) 99 02/26/18 09:00 Constitutional: Yes: No Distress HENT: Yes: Atraumatic Neck: Yes: Supple Cardiovascular: Yes: Regular Rate and Rhythm Respiratory: Yes: CTA Bilaterally Gastrointestinal: Yes: Normal Bowel Sounds Extremities: Yes: Other (R foot cellulitis) Neurological: Yes: Alert, Oriented Labs: CBC, BMP 02/28/18 13:35 03/02/18 06:20 INR, PTT INR 1.09 (0.82-1.09) 02/23/18 18:27 Problem List - Problems (1) Cellulitis of left foot Assessment/Plan: iv abx, id and podiatry wound care dressing change Code(s): L03.116 - CELLULITIS OF LEFT LOWER LIMB (2) Hyperglycemia Code(s): R73.9 - HYPERGLYCEMIA, UNSPECIFIED (3) Right foot ulcer Code(s): L97.519 - NON-PRS CHRONIC ULCER OTH PRT RIGHT FOOT W UNSP SEVERITY (4) Diabetes Assessment/Plan: bgms sliding scale insulin endo consult..done Code(s): E11.9 - TYPE 2 DIABETES MELLITUS WITHOUT COMPLICATIONS
[2018-03-02] MEDS: INSULIN (LEVEMIR) 100 UNITS/ML UNITS SQ SCH (21:34)
[2018-03-02] MEDS: SENNOSIDES/DOCUSATE COMBO (SENNA PLUS) TABLET (UD) PO PRN (21:35)
[2018-03-02] MEDS: ACETAMINOPHEN 325 MG TABLET (FP) PO PRN (21:36)
[2018-03-03] MEDS: VANCOMYCIN 1 GM PREMIX - 1 GM/200 ML BAG IVPB SCH ×2 (06:27→17:44)
[2018-03-03] MEDS: metFORMIN HCL 500 MG TABLET (FP) PO SCH ×2 (06:27→17:46)
[2018-03-03] MEDS: INSULIN SLIDING SCALE (NOVOLOG) 1 VIAL SQ SCH ×3 (06:28→17:45)
[2018-03-03] MEDS: ERTAPENEM SODIUM 1 GM in SODIUM CHLORIDE 50 ML IVPB SCH (12:22)
[2018-03-03] MEDS: RANITIDINE HCL 150 MG TABLET (FP) PO SCH (12:22)
[2018-03-03] MEDS: COLLAGENASE CLOSTRIDIUM HIST. 30 GRAMS TUBE TP SCH (12:23)
--- NOTE | 2018-03-03 12:29 | PN ---
Progress Note, Physician History of Present Illness: doing well no issues - Current Medication List Current Medications: Active Medications Acetaminophen (Tylenol -) 650 mg PO Q6H PRN PRN Reason: FEVER Last Admin: 03/02/18 21:36 Dose: 650 mg Collagenase (Santyl -) 1 applic TP DAILY [facility]; Protocol Last Admin: 03/03/18 12:23 Dose: 1 applic IV Flush (Picc Line Flush) 8 ml IVPUSH PRN PRN PRN Reason: Protocol Ertapenem 1 gm/ Sodium (Chloride) 50 mls @ 100 mls/hr IVPB DAILY [facility] Last Admin: 03/03/18 12:22 Dose: 100 mls/hr Vancomycin HCl (Vancomycin 1 Gm Premix -) 1 gm in 200 mls @ 133.333 mls/hr IVPB BID@0600,1800 [facility]; Protocol Last Admin: 03/03/18 06:27 Dose: 133.333 mls/hr Insulin Aspart (Novolog Vial Sliding Scale -) 1 vial SQ HS [facility]; Protocol Last Admin: 03/02/18 21:34 Dose: Not Given Insulin Aspart (Novolog Vial Sliding Scale -) 1 vial SQ TIDAC [facility]; Protocol Last Admin: 03/03/18 12:23 Dose: 4 units Insulin Detemir (Levemir Vial) 10 units SQ HS [facility] Last Admin: 03/02/18 21:34 Dose: 10 units Metformin HCl (Glucophage -) 500 mg PO BIDI [facility] Last Admin: 03/03/18 06:27 Dose: 500 mg Ondansetron HCl (Zofran Injection) 4 mg IVPUSH Q4H PRN PRN Reason: NAUSEA AND/OR VOMITING Last Admin: 02/27/18 12:47 Dose: 4 mg Ranitidine HCl (Zantac -) 150 mg PO BID [facility] Last Admin: 03/03/18 12:22 Dose: 150 mg Senna/Docusate Sodium (Pericolace -) 2 tablet PO HS PRN PRN Reason: CONSTIPATION Last Admin: 03/02/18 21:35 Dose: 2 tablet - Objective Vital Signs: Vital Signs Temperature 98.2 F 03/03/18 09:12 Pulse Rate 103 H 03/03/18 09:12 Respiratory Rate 20 03/03/18 09:12 Blood Pressure 121/61 03/03/18 09:12 O2 Sat by Pulse Oximetry (%) 98 03/03/18 09:00 Constitutional: Yes: No Distress, Calm Cardiovascular: Yes: Regular Rate and Rhythm Respiratory: Yes: Regular, CTA Bilaterally Gastrointestinal: Yes: Normal Bowel Sounds, Soft Musculoskeletal: Yes: WNL Extremities: Yes: Other Wound/Incision: Yes: Dressing Dry and Intact Neurological: Yes: Alert, Oriented Psychiatric: Yes: Alert, Oriented Labs: CBC, BMP 02/28/18 13:35 03/02/18 06:20 INR, PTT INR 1.09 (0.82-1.09) 02/23/18 18:27 Assessment/Plan patient now also has uti r/o osteo (1) Cellulitis of left foot Assessment/Plan: iv abx, id and podiatry Code(s): L03.116 - CELLULITIS OF LEFT LOWER LIMB (2) Hyperglycemia Code(s): R73.9 - HYPERGLYCEMIA, UNSPECIFIED (3) Right foot ulcer Code(s): L97.519 - NON-PRS CHRONIC ULCER OTH PRT RIGHT FOOT W UNSP SEVERITY 4 uti esbl plan vanco till 04/02 vanco is 1gm bid ertapenam 03/11 cbc esr crp bmp wound care
--- NOTE | 2018-03-03 15:58 | DS ---
Physical Examination Vital Signs: Vital Signs Temperature 98.4 F 03/03/18 14:01 Pulse Rate 80 03/03/18 14:01 Respiratory Rate 20 03/03/18 14:01 Blood Pressure 130/60 03/03/18 14:01 O2 Sat by Pulse Oximetry (%) 98 03/03/18 09:00 Constitutional: Yes: No Distress HENT: Yes: Atraumatic Neck: Yes: Supple Cardiovascular: Yes: Regular Rate and Rhythm Respiratory: Yes: CTA Bilaterally Gastrointestinal: Yes: Normal Bowel Sounds Extremities: Yes: Other (R foot cellulitis) Labs: CBC, BMP 02/28/18 13:35 03/02/18 06:20 Discharge Summary Reason For Visit: SEVER SEPSIS,DIABETIC OF FOOT W/ NECROSIS OF MUSCL Current Active Problems Cellulitis of left foot (Acute) Diabetes (Acute) Hyperglycemia (Acute) Right foot ulcer (Acute) Condition: Improved - Instructions Diet, Activity, Other Instructions: plan vanco till 04/02 vanco is 1gm bid ertapenam 03/11 cbc esr crp bmp wound care Referrals: Shannan Bean MD [Staff Physician] - Keith Jones MD [Staff Physician] - Ethel Wang DPM [Staff Physician] - - Home Medications Comprehensive Discharge Medication List: Ambulatory Orders metFORMIN HCL [Glucophage] 1,000 mg PO BID 04/02/12 Amoxicillin - [Amoxicillin 500mg Capsule -] 500 mg PO BID 02/23/18 Ranitidine [Zantac -] 150 mg PO BID 02/23/18
[2018-03-03 17:04] VITALS: BP 123/74; PULSE 94; TEMP 98.5
--- NOTE | 2018-03-03 20:58 | PN ---
Progress Note (short form) - Note Progress Note: Patient seen in bed. PICC line in place going home today. FUV right big toe. vss. Tmax 98.5 +granulation tissue in a grade 3 wound sub right hallux, -cellulitis, +om om grade 3 wound Plan of care. Will be doing wound care at [facility] due to insurance issues. Cannot have HBO due to Emergency Medicaid. IXABX as per ID. Fully made aware of all risks benfits and alternatives. Continue Santyl dressing changes. Orthowedge shoe if possible. Discharged today. Patient was seen around 5pm today by me.
== END 2018-03-03 20:06 | disposition home or self-care (01) | DRG 344 ==
LOC: JER 17:25 → JERBED 19:53 → J8W 02-24 00:22
PROVIDERS: ADMIT Internal Medicine; ATTEND Internal Medicine
PROC: 02HV33Z Insertion of Infusion Device into Superior Vena Cava, Percutaneous Approach (ICD-10-PCS; principal; 2018-03-03)
DX: E11.621 Type 2 diabetes mellitus with foot ulcer (principal); N39.0 Urinary tract infection, site not specified; L03.116 Cellulitis of left lower limb; L97.518 Non-pressure chronic ulcer of other part of right foot with other specified severity; E11.65 Type 2 diabetes mellitus with hyperglycemia; L08.89 Other specified local infections of the skin and subcutaneous tissue; B96.20 Unspecified Escherichia coli [E. coli] as the cause of diseases classified elsewhere; R00.0 Tachycardia, unspecified; M86.8X7 Other osteomyelitis, ankle and foot; Z89.421 Acquired absence of other right toe(s)
CPT/HCPCS: 36415; 36569; 73630-TC-RT-FY; 73718-TC; 77001-TC-FY; 80048; 80053; 81003; 81015; 82803; 82962; 83036; 83605; 84484; 84703; 85025; 85610; 85651; 85730; 86140; 87040; 87070; 87086; 87186; 87205; 93005; 93010; 99285-25; C1751; G0480; J0131; J1644; J7030

== ENCOUNTER 2018-03-04 07:25 | Day surgery (SDC) | payer OTHER ==
[2018-03-04] MEDS ORDERED: ERTAPENEM SODIUM 1 GM VIAL ONE (08:04)
[2018-03-04 08:08] LABS: HEMATOCRIT 31.9 % (32.4-45.2); HEMOGLOBIN 10.7 GM/dL (10.7-15.3); MCH 28.5 pg (25.7-33.7); MCHC 33.5 g/dl (32.0-36.0); MEAN PLT VOLUME 7.5 fl (7.5-11.1); PLATELET COUNT 514 K/MM3 (134-434); RBC 3.75 M/mm3 (3.60-5.2); RDW 12.8 % (11.6-15.6); WHITE BLOOD COUNT 8.7 K/mm3 (4.0-10.0)
[2018-03-04 08:24] VITALS: BP 102/63; PULSE 91; TEMP 97.9
[2018-03-04 08:30] LABS: ANION GAP 7 (8-16); BLOOD UREA NITROGEN 16 mg/dL (7-18); CALCIUM 8.6 mg/dL (8.5-10.1); CHLORIDE 105 mmol/L (98-107); CO2 28 mmol/L (21-32); CREATININE 0.9 mg/dL (0.55-1.02); GLUCOSE,RANDOM 271 mg/dL (74-106); POTASSIUM 4.6 mmol/L (3.5-5.1); SODIUM 140 mmol/L (136-145)
[2018-03-04] MEDS ORDERED: ERTAPENEM SODIUM 1 GM in SODIUM CHLORIDE 100 ML IVPB ONE (08:45)
[2018-03-04] MEDS ORDERED: VANCOMYCIN 1 GM PREMIX - 1 GM/200 ML BAG IVPB SCH (08:45)
[2018-03-04 09:18] LABS: ERYTHROCYTE SEDIMENTATION RATE 102 mm/hr (0-20)
[2018-03-04] MEDS ORDERED: VANCOMYCIN 1 GM PREMIX - 1 GM/200 ML BAG IVPB ONE (20:30)
== END 2018-03-04 10:52 | disposition home or self-care (01) ==
LOC: JINFUSION 07:25
PROVIDERS: ATTEND Internal Medicine
DX: E11.621 Type 2 diabetes mellitus with foot ulcer (principal); L03.116 Cellulitis of left lower limb; N39.0 Urinary tract infection, site not specified; M86.8X7 Other osteomyelitis, ankle and foot
CPT/HCPCS: 36415; 80048; 85027; 85651; 86140; 96365; 96366; 96367; G0480

== ENCOUNTER 2018-03-04 19:02 | Day surgery (SDC) | payer OTHER ==
[~2018-03-04 19:02] MED LIST: ERTAPENEM SODIUM 1 GM in SODIUM CHLORIDE 100 ML IVPB ONE; VANCOMYCIN 1 GM PREMIX - 1 GM/200 ML BAG IVPB SCH
[2018-03-04 19:50] VITALS: TEMP 97.9
[2018-03-04] MEDS ORDERED: ERTAPENEM SODIUM 1 GM in SODIUM CHLORIDE 50 ML IVPB ONE (20:00)
[2018-03-04] MEDS ORDERED: VANCOMYCIN 1 GM PREMIX - 1 GM/200 ML BAG IVPB ONE (20:00)
[2018-03-04] MEDS ORDERED: ACETAMINOPHEN 325 MG TABLET (FP) PO ONE (21:30)
[2018-03-04 23:22] VITALS: BP 110/74; PULSE 86
== END 2018-03-04 21:40 | disposition home or self-care (01) ==
LOC: JINFUSION 19:02 → J7W 19:21 → JINFUSION 21:40
PROVIDERS: ATTEND Internal Medicine
DX: E11.621 Type 2 diabetes mellitus with foot ulcer (principal); L03.116 Cellulitis of left lower limb; N39.0 Urinary tract infection, site not specified; M86.8X7 Other osteomyelitis, ankle and foot
CPT/HCPCS: 96365; 96366

== ENCOUNTER 2018-03-05 07:22 | Day surgery (SDC) | payer OTHER ==
[2018-03-05] MEDS ORDERED: ERTAPENEM SODIUM 1 GM VIAL ONE (07:43)
[2018-03-05] MEDS ORDERED: ERTAPENEM SODIUM 1 GM in SODIUM CHLORIDE 100 ML IVPB ONE (08:30)
[2018-03-05] MEDS ORDERED: VANCOMYCIN 1 GM PREMIX - 1 GM/200 ML BAG IVPB ONE (08:45)
[2018-03-05 10:42] VITALS: BP 113/70; PULSE 89; TEMP 99.3
== END 2018-03-05 10:43 | disposition home or self-care (01) ==
LOC: JINFUSION 07:22
PROVIDERS: ATTEND Internal Medicine
DX: E11.621 Type 2 diabetes mellitus with foot ulcer (principal); L03.116 Cellulitis of left lower limb; N39.0 Urinary tract infection, site not specified; M86.8X7 Other osteomyelitis, ankle and foot
CPT/HCPCS: 96365; 96366; 96367

== ENCOUNTER 2018-03-05 19:18 | Day surgery (SDC) | payer OTHER ==
[2018-03-05] MEDS ORDERED: VANCOMYCIN 1 GM PREMIX - 1 GM/200 ML BAG IVPB ONE (20:00)
[2018-03-05 20:11] VITALS: BP 124/75; PULSE 96; TEMP 98.1
== END 2018-03-05 21:53 | disposition home or self-care (01) ==
LOC: JINFUSION 19:18 → J7W 19:19 → JINFUSION 21:53
PROVIDERS: ATTEND Internal Medicine
DX: E11.621 Type 2 diabetes mellitus with foot ulcer (principal); L03.116 Cellulitis of left lower limb; N39.0 Urinary tract infection, site not specified; M86.8X7 Other osteomyelitis, ankle and foot

== ENCOUNTER 2018-03-06 07:42 | Day surgery (SDC) | payer OTHER ==
[2018-03-06] MEDS ORDERED: ERTAPENEM SODIUM 1 GM VIAL ONE (08:24)
[2018-03-06] MEDS ORDERED: ERTAPENEM SODIUM 1 GM in SODIUM CHLORIDE 100 ML IVPB ONE (08:45)
[2018-03-06] MEDS ORDERED: VANCOMYCIN 1 GM PREMIX - 1 GM/200 ML BAG IVPB ONE (09:30)
[2018-03-06 11:54] VITALS: BP 106/60; PULSE 88; TEMP 97.8
== END 2018-03-06 11:40 | disposition home or self-care (01) ==
LOC: JINFUSION 07:42
PROVIDERS: ATTEND Internal Medicine
DX: E11.621 Type 2 diabetes mellitus with foot ulcer (principal); L03.116 Cellulitis of left lower limb; N39.0 Urinary tract infection, site not specified; M86.8X7 Other osteomyelitis, ankle and foot
CPT/HCPCS: 96365; 96366; 96367

== ENCOUNTER 2018-03-06 19:54 | Day surgery (SDC) | payer OTHER ==
[2018-03-06] MEDS ORDERED: ERTAPENEM SODIUM 1 GM in SODIUM CHLORIDE 50 ML IVPB ONE (20:30)
[2018-03-06] MEDS ORDERED: VANCOMYCIN 1 GM PREMIX - 1 GM/200 ML BAG IVPB ONE (20:30)
[2018-03-06 22:53] VITALS: BP 101/62; PULSE 94
[2018-03-06 22:56] VITALS: TEMP 98.4
== END 2018-03-06 23:07 | disposition home or self-care (01) ==
LOC: JINFUSION 19:54 → J7W 19:55 → JINFUSION 23:07
PROVIDERS: ATTEND Internal Medicine
DX: E11.621 Type 2 diabetes mellitus with foot ulcer (principal); L03.116 Cellulitis of left lower limb; N39.0 Urinary tract infection, site not specified; M86.8X7 Other osteomyelitis, ankle and foot
CPT/HCPCS: 82962

== ENCOUNTER 2018-03-07 07:33 | Day surgery (SDC) | payer OTHER ==
[2018-03-07] MEDS ORDERED: VANCOMYCIN 1 GM PREMIX - 1 GM/200 ML BAG IVPB ONE (08:15)
[2018-03-07] MEDS ORDERED: ERTAPENEM SODIUM 1 GM in SODIUM CHLORIDE 100 ML IVPB ONE (08:15)
[2018-03-07 10:25] VITALS: BP 132/79
[2018-03-07 10:29] VITALS: PULSE 64; TEMP 97.9
== END 2018-03-07 13:26 | disposition home or self-care (01) ==
LOC: JINFUSION 07:33 → J7W 07:34 → JINFUSION 13:26
PROVIDERS: ATTEND Internal Medicine
DX: E11.621 Type 2 diabetes mellitus with foot ulcer (principal); L03.116 Cellulitis of left lower limb; N39.0 Urinary tract infection, site not specified; M86.8X7 Other osteomyelitis, ankle and foot
CPT/HCPCS: 96365; 96367

== ENCOUNTER 2018-03-07 14:59 | Day surgery (SDC) | payer OTHER ==
[2018-03-07] MEDS ORDERED: VANCOMYCIN 1 GM PREMIX - 1 GM/200 ML BAG IVPB ONE (19:45)
[2018-03-07 20:01] VITALS: TEMP 98.5
[2018-03-07 21:52] VITALS: BP 102/66; PULSE 90
== END 2018-03-07 21:54 | disposition home or self-care (01) ==
LOC: JINFUSION 14:59 → J7W 15:00 → JINFUSION 21:54
PROVIDERS: ATTEND Internal Medicine
DX: E11.621 Type 2 diabetes mellitus with foot ulcer (principal); L03.116 Cellulitis of left lower limb; N39.0 Urinary tract infection, site not specified; M86.8X7 Other osteomyelitis, ankle and foot
CPT/HCPCS: 96365; 96366

== ENCOUNTER 2018-03-08 08:46 | Day surgery (SDC) | payer OTHER ==
[2018-03-08] MEDS ORDERED: ERTAPENEM SODIUM 1 GM in SODIUM CHLORIDE 50 ML IVPB ONE (09:15)
[2018-03-08] MEDS ORDERED: VANCOMYCIN 1,000 MG in DEXTROSE 5%-WATER - 250 ML IVPB ONE (10:00)
[2018-03-08 12:39] VITALS: BP 120/76; PULSE 80; TEMP 97.9
== END 2018-03-08 12:15 | disposition home or self-care (01) ==
LOC: JINFUSION 08:46 → J7W 08:46 → JINFUSION 12:15
PROVIDERS: ATTEND Internal Medicine
DX: E11.621 Type 2 diabetes mellitus with foot ulcer (principal); L03.116 Cellulitis of left lower limb; N39.0 Urinary tract infection, site not specified; M86.8X7 Other osteomyelitis, ankle and foot
CPT/HCPCS: 96365; 96366; 96367

== ENCOUNTER 2018-03-08 14:23 | Day surgery (SDC) | payer OTHER ==
[2018-03-08] MEDS ORDERED: VANCOMYCIN 1 GM PREMIX - 1 GM/200 ML BAG IVPB ONE (19:15)
[2018-03-08 20:23] VITALS: TEMP 98
[2018-03-08 20:54] VITALS: BP 112/68; PULSE 94
== END 2018-03-08 20:50 | disposition home or self-care (01) ==
LOC: JINFUSION 14:23 → J7W 15:39 → JINFUSION 20:50
PROVIDERS: ATTEND Internal Medicine
DX: E11.621 Type 2 diabetes mellitus with foot ulcer (principal); L03.116 Cellulitis of left lower limb; N39.0 Urinary tract infection, site not specified; M86.8X7 Other osteomyelitis, ankle and foot
CPT/HCPCS: 96365

== ENCOUNTER 2018-03-09 09:05 | Day surgery (SDC) | payer OTHER ==
[~2018-03-09 09:05] MED LIST changes: +VANCOMYCIN 1 GM PREMIX - 1 GM/200 ML BAG IVPB ONE; -VANCOMYCIN 1 GM PREMIX - 1 GM/200 ML BAG IVPB SCH
[2018-03-09 12:02] VITALS: BP 145/82; PULSE 83; TEMP 97.7
== END 2018-03-09 11:59 | disposition home or self-care (01) ==
LOC: JINFUSION 09:05
PROVIDERS: ATTEND Internal Medicine
DX: E11.621 Type 2 diabetes mellitus with foot ulcer (principal); L03.116 Cellulitis of left lower limb; N39.0 Urinary tract infection, site not specified; M86.8X7 Other osteomyelitis, ankle and foot
CPT/HCPCS: 96365; 96366; 96367

== ENCOUNTER 2018-03-09 19:22 | Day surgery (SDC) | payer OTHER ==
[2018-03-09] MEDS ORDERED: VANCOMYCIN 1 GM PREMIX - 1 GM/200 ML BAG IVPB ONE (19:45)
[2018-03-09 20:12] VITALS: TEMP 98.7
[2018-03-09 21:49] VITALS: BP 134/84; PULSE 87
== END 2018-03-09 21:51 | disposition home or self-care (01) ==
LOC: JINFUSION 19:22 → J7W 19:23 → JINFUSION 21:51
PROVIDERS: ATTEND Internal Medicine
DX: E11.621 Type 2 diabetes mellitus with foot ulcer (principal); L03.116 Cellulitis of left lower limb; N39.0 Urinary tract infection, site not specified; M86.8X7 Other osteomyelitis, ankle and foot
CPT/HCPCS: 96365; 96366

== ENCOUNTER 2018-03-11 08:58 | Day surgery (SDC) | payer OTHER ==
[2018-03-11 09:26] LABS: HEMATOCRIT 32.6 % (32.4-45.2); HEMOGLOBIN 10.9 GM/dL (10.7-15.3); MCH 28.4 pg (25.7-33.7); MCHC 33.5 g/dl (32.0-36.0); MEAN CELL VOLUME 84.6 fl (80-96); MEAN PLT VOLUME 7.9 fl (7.5-11.1); PLATELET COUNT 467 K/MM3 (134-434); RBC 3.86 M/mm3 (3.60-5.2); RDW 13.1 % (11.6-15.6); WHITE BLOOD COUNT 7.5 K/mm3 (4.0-10.0)
[2018-03-11 09:33] VITALS: TEMP 97.9
[2018-03-11 09:45] LABS: ANION GAP 7 (8-16); BLOOD UREA NITROGEN 20 mg/dL (7-18); CALCIUM 8.8 mg/dL (8.5-10.1); CHLORIDE 106 mmol/L (98-107); CO2 25 mmol/L (21-32); CREATININE 1.3 mg/dL (0.55-1.02); GLUCOSE,RANDOM 232 mg/dL (74-106); SODIUM 138 mmol/L (136-145)
[2018-03-11] MEDS ORDERED: ERTAPENEM SODIUM 1 GM in SODIUM CHLORIDE 100 ML IVPB ONE (09:45)
[2018-03-11] MEDS ORDERED: VANCOMYCIN 1 GM PREMIX - 1 GM/200 ML BAG IVPB ONE (09:45)
[2018-03-11 10:08] LABS: POTASSIUM 5.3 mmol/L (3.5-5.1)
[2018-03-11 10:33] LABS: ERYTHROCYTE SEDIMENTATION RATE 97 mm/hr (0-20)
[2018-03-11 13:44] VITALS: BP 147/81; PULSE 95
== END 2018-03-11 12:40 | disposition home or self-care (01) ==
LOC: JINFUSION 08:58
PROVIDERS: ATTEND Internal Medicine
DX: E11.621 Type 2 diabetes mellitus with foot ulcer (principal); L03.116 Cellulitis of left lower limb; N39.0 Urinary tract infection, site not specified; M86.8X7 Other osteomyelitis, ankle and foot
CPT/HCPCS: 36415; 80048; 85027; 85651; 86140; 96365; 96366; 96367; G0480

== ENCOUNTER 2018-03-12 08:46 | Day surgery (SDC) | payer OTHER ==
[~2018-03-12 08:46] MED LIST changes: -VANCOMYCIN 1 GM PREMIX - 1 GM/200 ML BAG IVPB ONE
[2018-03-12] MEDS ORDERED: ERTAPENEM SODIUM 1 GM VIAL ONE (08:58)
[2018-03-16 16:19] VITALS: BP 146/71; PULSE 74; TEMP 98.2
== END 2018-03-12 11:30 | disposition home or self-care (01) ==
LOC: JINFUSION 08:46
PROVIDERS: ATTEND Internal Medicine
DX: E11.621 Type 2 diabetes mellitus with foot ulcer (principal); L03.116 Cellulitis of left lower limb; N39.0 Urinary tract infection, site not specified; M86.8X7 Other osteomyelitis, ankle and foot
CPT/HCPCS: 96365

== ENCOUNTER 2018-03-14 08:27 | Day surgery (SDC) | payer OTHER ==
[2018-03-14 09:03] VITALS: TEMP 98
[2018-03-14 09:26] LABS: ANION GAP 7 (8-16); BLOOD UREA NITROGEN 22 mg/dL (7-18); CALCIUM 8.5 mg/dL (8.5-10.1); CHLORIDE 104 mmol/L (98-107); CO2 26 mmol/L (21-32); CREATININE 1.3 mg/dL (0.55-1.02); GLUCOSE,RANDOM 117 mg/dL (74-106); POTASSIUM 4.5 mmol/L (3.5-5.1); SODIUM 137 mmol/L (136-145)
[2018-03-14] MEDS ORDERED: ERTAPENEM SODIUM 1 GM in SODIUM CHLORIDE 50 ML IVPB ONE (09:45)
[2018-03-14] MEDS ORDERED: VANCOMYCIN 1 GM PREMIX - 1 GM/200 ML BAG IVPB ONE (10:30)
[2018-03-14 13:46] VITALS: BP 138/90; PULSE 90
== END 2018-03-14 13:55 | disposition home or self-care (01) ==
LOC: JINFUSION 08:27 → J7W 08:40 → JINFUSION 13:55
PROVIDERS: ATTEND Internal Medicine
DX: E11.621 Type 2 diabetes mellitus with foot ulcer (principal); L03.116 Cellulitis of left lower limb; N39.0 Urinary tract infection, site not specified; M86.8X7 Other osteomyelitis, ankle and foot
CPT/HCPCS: 36415; 80048; 85651; 86140; 96365; 96366; 96367; G0480

== ENCOUNTER 2018-03-15 09:19 | Day surgery (SDC) | payer OTHER ==
[2018-03-15 10:46] VITALS: PULSE 92
[2018-03-15] MEDS ORDERED: ERTAPENEM SODIUM 1 GM in SODIUM CHLORIDE 50 ML IVPB ONE (12:00)
[2018-03-15] MEDS ORDERED: VANCOMYCIN 1 GM PREMIX - 1 GM/200 ML BAG IVPB ONE (12:00)
[2018-03-15 14:28] VITALS: BP 152/90; TEMP 97.8
== END 2018-03-15 15:29 | disposition home or self-care (01) ==
LOC: JINFUSION 09:19 → J7W 09:20 → JINFUSION 15:29
PROVIDERS: ATTEND Internal Medicine
DX: E11.621 Type 2 diabetes mellitus with foot ulcer (principal); L03.116 Cellulitis of left lower limb; N39.0 Urinary tract infection, site not specified; M86.8X7 Other osteomyelitis, ankle and foot
CPT/HCPCS: 96365; 96366; 96367

== ENCOUNTER 2018-03-16 10:42 | Day surgery (SDC) | payer OTHER ==
[2018-03-16] MEDS ORDERED: ERTAPENEM SODIUM 1 GM in SODIUM CHLORIDE 100 ML IVPB ONE (11:15)
[2018-03-16] MEDS ORDERED: VANCOMYCIN 1 GM PREMIX - 1 GM/200 ML BAG IVPB ONE (11:15)
[2018-03-16 12:00] VITALS: TEMP 99
[2018-03-16 14:54] VITALS: BP 159/87; PULSE 86
== END 2018-03-16 14:00 | disposition home or self-care (01) ==
LOC: JINFUSION 10:42
PROVIDERS: ATTEND Internal Medicine
DX: E11.621 Type 2 diabetes mellitus with foot ulcer (principal); L03.116 Cellulitis of left lower limb; N39.0 Urinary tract infection, site not specified; M86.8X7 Other osteomyelitis, ankle and foot
CPT/HCPCS: 96365; 96366; 96367

== ENCOUNTER 2018-03-18 07:36 | Day surgery (SDC) | payer OTHER ==
[2018-03-18 08:07] LABS: HEMATOCRIT 31.7 % (32.4-45.2); HEMOGLOBIN 10.8 GM/dL (10.7-15.3); MCH 28.5 pg (25.7-33.7); MCHC 34.1 g/dl (32.0-36.0); MEAN CELL VOLUME 83.7 fl (80-96); MEAN PLT VOLUME 8.2 fl (7.5-11.1); PLATELET COUNT 307 K/MM3 (134-434); RBC 3.79 M/mm3 (3.60-5.2); RDW 13.1 % (11.6-15.6); WHITE BLOOD COUNT 6.8 K/mm3 (4.0-10.0)
[2018-03-18] MEDS ORDERED: ERTAPENEM SODIUM 1 GM in SODIUM CHLORIDE 50 ML IVPB ONE (08:15)
[2018-03-18] MEDS ORDERED: VANCOMYCIN 1 GM PREMIX - 1 GM/200 ML BAG IVPB ONE (08:15)
[2018-03-18 08:37] VITALS: TEMP 98
[2018-03-18 08:53] LABS: ANION GAP 6 (8-16); BLOOD UREA NITROGEN 19 mg/dL (7-18); CHLORIDE 102 mmol/L (98-107); CO2 29 mmol/L (21-32); CREATININE 1.5 mg/dL (0.55-1.02); GLUCOSE,RANDOM 89 mg/dL (74-106); POTASSIUM 4.4 mmol/L (3.5-5.1); SODIUM 137 mmol/L (136-145)
[2018-03-18 10:51] VITALS: BP 168/91; PULSE 85
[2018-03-18 13:58] LABS: ERYTHROCYTE SEDIMENTATION RATE 106 mm/hr (0-20)
== END 2018-03-18 10:50 | disposition home or self-care (01) ==
LOC: JINFUSION 07:36
PROVIDERS: ATTEND Internal Medicine
DX: E11.621 Type 2 diabetes mellitus with foot ulcer (principal); L03.116 Cellulitis of left lower limb; N39.0 Urinary tract infection, site not specified; M86.8X7 Other osteomyelitis, ankle and foot
CPT/HCPCS: 36415; 80048; 85027; 85651; 86140; 96365; 96366; 96367

== ENCOUNTER 2018-03-19 09:40 | Day surgery (SDC) | payer OTHER ==
[2018-03-19] MEDS ORDERED: ERTAPENEM SODIUM 1 GM in SODIUM CHLORIDE 50 ML IVPB ONE (11:00)
[2018-03-19] MEDS ORDERED: VANCOMYCIN 1 GM PREMIX - 1 GM/200 ML BAG IVPB ONE (11:00)
[2018-03-19 11:18] VITALS: PULSE 95; TEMP 98.4
[2018-03-19 13:12] VITALS: BP 150/96
== END 2018-03-19 13:13 | disposition home or self-care (01) ==
LOC: JINFUSION 09:40
PROVIDERS: ATTEND Internal Medicine
DX: E11.621 Type 2 diabetes mellitus with foot ulcer (principal); L03.116 Cellulitis of left lower limb; N39.0 Urinary tract infection, site not specified; M86.8X7 Other osteomyelitis, ankle and foot
CPT/HCPCS: 96365; 96366; 96367; G0480

== ENCOUNTER 2018-03-20 09:43 | Day surgery (SDC) | payer OTHER ==
[~2018-03-20 09:43] MED LIST changes: -ERTAPENEM SODIUM 1 GM in SODIUM CHLORIDE 100 ML IVPB ONE; +ERTAPENEM SODIUM 1 GM in SODIUM CHLORIDE 50 ML IVPB ONE
[2018-03-20 10:53] VITALS: TEMP 97.8
[2018-03-20 10:56] VITALS: BP 141/94; PULSE 100
== END 2018-03-20 11:00 | disposition home or self-care (01) ==
LOC: JINFUSION 09:43
PROVIDERS: ATTEND Internal Medicine
DX: E11.621 Type 2 diabetes mellitus with foot ulcer (principal); L03.116 Cellulitis of left lower limb; N39.0 Urinary tract infection, site not specified; M86.8X7 Other osteomyelitis, ankle and foot
CPT/HCPCS: 96365

== ENCOUNTER 2018-03-22 11:28 | Day surgery (SDC) | payer OTHER ==
[2018-03-22] MEDS ORDERED: ERTAPENEM SODIUM 1 GM in SODIUM CHLORIDE 50 ML IVPB ONE (12:30)
[2018-03-22] MEDS ORDERED: VANCOMYCIN 750 MG in DEXTROSE 5%-WATER - 250 ML IVPB ONE (12:30)
[2018-03-22] MEDS ORDERED: VANCOMYCIN 750 MG in SODIUM CHLORIDE 250 ML IVPB ONE (12:31)
[2018-03-22] MEDS ORDERED: PT OWN MED DRAWER 7, Y5N ONE (13:22)
[2018-03-22 15:01] VITALS: BP 140/68; PULSE 97; TEMP 99.9
== END 2018-03-22 16:00 | disposition home or self-care (01) ==
LOC: JINFUSION 11:28 → J7W 11:30 → JINFUSION 16:00
PROVIDERS: ATTEND Internal Medicine
DX: E11.621 Type 2 diabetes mellitus with foot ulcer (principal); L03.116 Cellulitis of left lower limb; M86.8X7 Other osteomyelitis, ankle and foot
CPT/HCPCS: 96365; 96368; G0480

== ENCOUNTER 2018-03-25 10:42 | Day surgery (SDC) | payer OTHER ==
[2018-03-25] MEDS ORDERED: VANCOMYCIN 750 MG in SODIUM CHLORIDE 250 ML IVPB ONE (11:15)
[2018-03-25 11:20] LABS: HEMOGLOBIN 10.3 GM/dL (10.7-15.3); MCH 28.8 pg (25.7-33.7); MCHC 34.3 g/dl (32.0-36.0); MEAN PLT VOLUME 8.2 fl (7.5-11.1); PLATELET COUNT 306 K/MM3 (134-434); RBC 3.57 M/mm3 (3.60-5.2); RDW 13.3 % (11.6-15.6)
[2018-03-25 11:50] LABS: ANION GAP 8 (8-16); BLOOD UREA NITROGEN 24 mg/dL (7-18); CALCIUM 8.9 mg/dL (8.5-10.1); CHLORIDE 109 mmol/L (98-107); CO2 24 mmol/L (21-32); CREATININE 1.7 mg/dL (0.55-1.02); GLUCOSE,RANDOM 254 mg/dL (74-106); POTASSIUM 4.9 mmol/L (3.5-5.1); SODIUM 141 mmol/L (136-145)
[2018-03-25 13:30] LABS: ERYTHROCYTE SEDIMENTATION RATE 114 mm/hr (0-20)
[2018-03-25 14:13] VITALS: BP 176/97; PULSE 90; TEMP 97.8
== END 2018-03-25 13:35 | disposition home or self-care (01) ==
LOC: JINFUSION 10:42
PROVIDERS: ATTEND Internal Medicine
DX: E11.621 Type 2 diabetes mellitus with foot ulcer (principal); L03.116 Cellulitis of left lower limb; N39.0 Urinary tract infection, site not specified; M86.8X7 Other osteomyelitis, ankle and foot
CPT/HCPCS: 36415; 80048; 85027; 85651; 86140; 96365; 96366; G0480

== ENCOUNTER 2018-03-27 09:11 | Day surgery (SDC) | payer OTHER ==
[2018-03-27] MEDS ORDERED: VANCOMYCIN 750 MG in SODIUM CHLORIDE 250 ML IVPB ONE (10:00)
[2018-03-27 10:30] VITALS: TEMP 98.3
[2018-03-27 11:32] VITALS: BP 157/85; PULSE 97
== END 2018-03-27 11:35 | disposition home or self-care (01) ==
LOC: JINFUSION 09:11
PROVIDERS: ATTEND Internal Medicine
DX: E11.621 Type 2 diabetes mellitus with foot ulcer (principal); L03.116 Cellulitis of left lower limb; N39.0 Urinary tract infection, site not specified; M86.8X7 Other osteomyelitis, ankle and foot
CPT/HCPCS: 96365; 96366

== ENCOUNTER 2018-03-29 11:32 | Day surgery (SDC) | payer OTHER ==
[2018-03-29] MEDS ORDERED: VANCOMYCIN 750 MG in SODIUM CHLORIDE 250 ML IVPB ONE (12:30)
[2018-03-29 15:32] VITALS: BP 162/86; PULSE 98; TEMP 98.4
== END 2018-03-29 14:22 | disposition home or self-care (01) ==
LOC: JINFUSION 11:32 → J7W 11:32 → JINFUSION 14:22
PROVIDERS: ATTEND Internal Medicine
DX: E11.621 Type 2 diabetes mellitus with foot ulcer (principal); L03.116 Cellulitis of left lower limb; N39.0 Urinary tract infection, site not specified; M86.8X7 Other osteomyelitis, ankle and foot
CPT/HCPCS: 96365

== ENCOUNTER 2018-03-30 09:31 | Day surgery (SDC) | payer OTHER ==
[~2018-03-30 09:31] MED LIST changes: -ERTAPENEM SODIUM 1 GM in SODIUM CHLORIDE 50 ML IVPB ONE; +VANCOMYCIN 750 MG in SODIUM CHLORIDE 250 ML IVPB ONE
[2018-03-30 15:40] VITALS: BP 130/72; PULSE 90; TEMP 98.2
== END 2018-03-30 12:00 | disposition home or self-care (01) ==
LOC: JINFUSION 09:31
PROVIDERS: ATTEND Internal Medicine
DX: E11.621 Type 2 diabetes mellitus with foot ulcer (principal); L03.116 Cellulitis of left lower limb; N39.0 Urinary tract infection, site not specified; M86.8X7 Other osteomyelitis, ankle and foot
CPT/HCPCS: 96365; 96366

== ENCOUNTER 2018-03-31 10:09 | Day surgery (SDC) | payer OTHER ==
[2018-03-31 10:52] VITALS: BP 137/79; PULSE 89; TEMP 98.4
[2018-04-01 10:39] LABS: HEMATOCRIT 29.5 % (32.4-45.2); HEMOGLOBIN 9.9 GM/dL (10.7-15.3); MCH 27.8 pg (25.7-33.7); MCHC 33.4 g/dl (32.0-36.0); MEAN CELL VOLUME 83.1 fl (80-96); MEAN PLT VOLUME 8.3 fl (7.5-11.1); PLATELET COUNT 278 K/MM3 (134-434); RBC 3.54 M/mm3 (3.60-5.2); RDW 13.7 % (11.6-15.6); WHITE BLOOD COUNT 7.1 K/mm3 (4.0-10.0)
[2018-04-01 11:32] LABS: ERYTHROCYTE SEDIMENTATION RATE 107 mm/hr (0-20)
[2018-04-01 12:45] LABS: CHLORIDE 106 mmol/L (98-107); POTASSIUM 4.6 mmol/L (3.5-5.1); SODIUM 140 mmol/L (136-145)
[2018-04-01 12:50] LABS: ANION GAP 10 MMOL/L (8-16); BLOOD UREA NITROGEN 24 mg/dL (7-18); CALCIUM 9.2 mg/dL (8.5-10.1); CO2 24 mmol/L (21-32); CREATININE 1.3 mg/dL (0.55-1.02); GLUCOSE,RANDOM 172 mg/dL (74-106)
== END 2018-03-31 12:10 | disposition home or self-care (01) ==
LOC: JINFUSION 10:09
PROVIDERS: ATTEND Internal Medicine
DX: E11.621 Type 2 diabetes mellitus with foot ulcer (principal); L03.116 Cellulitis of left lower limb; N39.0 Urinary tract infection, site not specified; M86.8X7 Other osteomyelitis, ankle and foot
CPT/HCPCS: 36415; 80048; 85027; 85651; 86140; 96365; 96366; G0480

== ENCOUNTER 2018-04-01 09:43 | Day surgery (SDC) | payer OTHER ==
[2018-04-01] MEDS ORDERED: VANCOMYCIN 750 MG in SODIUM CHLORIDE 250 ML IVPB ONE (10:30)
[2018-04-01 10:32] VITALS: TEMP 98.3
[2018-04-01] MEDS ORDERED: VANCOMYCIN 750 MG in SODIUM CHLORIDE 100 ML IVPB ONE (11:00)
[2018-04-01 12:17] VITALS: BP 161/81; PULSE 88
== END 2018-04-01 12:26 | disposition home or self-care (01) ==
LOC: JINFUSION 09:43
PROVIDERS: ATTEND Internal Medicine
DX: E11.621 Type 2 diabetes mellitus with foot ulcer (principal); L03.116 Cellulitis of left lower limb; N39.0 Urinary tract infection, site not specified; M86.8X7 Other osteomyelitis, ankle and foot
CPT/HCPCS: 96365; 96366

== ENCOUNTER 2018-04-02 09:59 | Day surgery (SDC) | payer OTHER ==
[2018-04-02 11:01] VITALS: TEMP 98.3
[2018-04-02 12:20] VITALS: BP 158/85; PULSE 84
== END 2018-04-02 12:20 | disposition home or self-care (01) ==
LOC: JINFUSION 09:59
PROVIDERS: ATTEND Internal Medicine
DX: E11.621 Type 2 diabetes mellitus with foot ulcer (principal); L03.116 Cellulitis of left lower limb; N39.0 Urinary tract infection, site not specified; M86.8X7 Other osteomyelitis, ankle and foot
CPT/HCPCS: 96365; 96366

== ENCOUNTER 2021-06-11 | Inpatient (IN) | payer OTHER ==
[2021-06-11] MEDS ORDERED: SODIUM CHLORIDE 0.9% 500 ML INFUS.BAG IV ONE (01:06)
[2021-06-11] MEDS ORDERED: ACETAMINOPHEN 1000 MG/100 ML VIAL IVPB ONE ×3 (01:06→23:36)
[2021-06-11] MEDS ORDERED: ACETAMINOPHEN INJECTION 100 ML IVPB ONE ×2 (01:22→10:34)
[2021-06-11] MEDS ORDERED: ONDANSETRON 4 MG/2 ML VIAL IVPB ONE (01:27)
[2021-06-11 02:02] LABS: HEMATOCRIT 25.4 % (32.4-45.2); HEMOGLOBIN 8.4 GM/dL (10.7-15.3); MCH 27.4 pg (25.7-33.7); MCHC 33.1 g/dl (32.0-36.0); MEAN CELL VOLUME 82.7 fl (80-96); MEAN PLT VOLUME 9.2 fl (7.5-11.1); PLATELET COUNT 347 10^3/uL (134-434); RBC 3.07 M/mm3 (3.60-5.2); RDW 14.2 % (11.6-15.6); WHITE BLOOD COUNT 21.7 K/mm3 (4.0-10.0)
[2021-06-11 02:20] LABS: CHLORIDE 97 mmol/L (98-107); SODIUM 133 mmol/L (136-145)
[2021-06-11 02:23] LABS: ALBUMIN 2.2 g/dl (3.4-5.0); ANION GAP 20 MMOL/L (8-16); BLOOD UREA NITROGEN 25.5 mg/dL (7-18); CALCIUM 8.8 mg/dL (8.5-10.1); CO2 16 mmol/L (21-32); LIPASE 120 U/L (73-393)
[2021-06-11 02:26] LABS: CREATININE 1.2 mg/dL (0.55-1.3); SGOT/AST 33 U/L (15-37); SGPT/ALT 17 U/L (13-61)
[2021-06-11 02:27] LABS: BILIRUBIN,TOTAL 0.7 mg/dL (0.2-1)
[2021-06-11 02:28] LABS: TOT PROT 7.4 g/dl (6.4-8.2)
[2021-06-11 02:29] LABS: ALK PHOS 117 U/L (45-117)
[2021-06-11 02:52] LABS: ANISOCYTOSIS 2+; MACROCYTOSIS 0; PLATELET ESTIMATE INCREASED
[2021-06-11 02:56] LABS: GLUCOSE,RANDOM 473 mg/dL (74-106)
[2021-06-11] MEDS ORDERED: ONDANSETRON 4 MG/2 ML VIAL ONE (02:57)
[2021-06-11 03:02] LABS: VENOUS O2 SATURATION 65.1 % (70-80); VENOUS PCO2 30.9 mmHg (38-52); VENOUS PH 7.31 (7.310-7.410)
[2021-06-11] MEDS ORDERED: PIPERACILLIN/TAZOB 4.5 GM 4.5 GM in DEXTROSE 5%-WATER 100 ML IVPB ONE (03:06)
[2021-06-11] MEDS ORDERED: VANCOMYCIN 1 GM in D5W (PRE-DOCKED) 1,000 MG/250 ML IVPB ONE (03:09)
[2021-06-11] MEDS ORDERED: VANCOMYCIN 1 GRAM (PRE-DOCKED) 1,000 MG/250 ML BAG IVPB ONE (03:16)
[2021-06-11] MEDS ORDERED: PIPERACILLIN/TAZOB 4.5 GM 4.5 GM/100 ML BAG IVPB ONE (03:16)
[2021-06-11 04:34] LABS: ARTERIAL BLD GAS O2 SATURATION 98.1 % (95-98); ARTERIAL BLOOD GAS BASE EXCESS -9.7 mmol/L (-2-2); ARTERIAL BLOOD GAS PO2 110.1 mmHg (80-100); ARTERIAL BLOOD GAS pH 7.387 (7.350-7.450)
[2021-06-11] MEDS ORDERED: INSULIN REGULAR HUMAN 100 UNITS/ML *VIAL SQ ONE (05:09)
[2021-06-11] MEDS ORDERED: LACTATED RINGERS SOLUTION 1,000 ML/1,000 ML INFUS.BAG IV SCH ×4 (05:30→19:05)
[2021-06-11] MEDS ORDERED: INSULIN REGULAR HUMAN 100 UNITS/ML *VIAL ONE (05:42)
[2021-06-11 06:04] LABS: ARTERIAL BLD GAS O2 SATURATION 96.9 % (95-98); ARTERIAL BLOOD GAS BASE EXCESS -10.4 mmol/L (-2-2); ARTERIAL BLOOD GAS pH 7.334 (7.350-7.450)
[2021-06-11] MEDS ORDERED: SODIUM CHLORIDE 1,000 ML IV STA (06:41)
[2021-06-11] MEDS ORDERED: SODIUM CHLORIDE 1,000 ML IV SCH (06:45)
[2021-06-11 07:55] LABS: BASO % 0.2 % (0-2.0); HEMATOCRIT 25.2 % (32.4-45.2); HEMOGLOBIN 8.2 GM/dL (10.7-15.3); MCH 27.2 pg (25.7-33.7); MCHC 32.5 g/dl (32.0-36.0); MEAN CELL VOLUME 83.5 fl (80-96); MEAN PLT VOLUME 8.7 fl (7.5-11.1); MONO % 5.2 % (3.8-10.2); NEUT % 87.6 % (42.8-82.8); PLATELET COUNT 344 10^3/uL (134-434); RBC 3.02 M/mm3 (3.60-5.2); RDW 13.9 % (11.6-15.6); WHITE BLOOD COUNT 18.3 K/mm3 (4.0-10.0)
[2021-06-11 08:09] LABS: CALCIUM 8.1 mg/dL (8.5-10.1)
[2021-06-11 08:10] LABS: BLOOD UREA NITROGEN 23.2 mg/dL (7-18)
[2021-06-11 08:13] LABS: CREATININE 1.1 mg/dL (0.55-1.3); PHOSPHOROUS 3.1 mg/dL (2.5-4.9)
[2021-06-11 08:14] LABS: BILIRUBIN,TOTAL 0.5 mg/dL (0.2-1); TOT PROT 6.8 g/dl (6.4-8.2)
[2021-06-11] MEDS ORDERED: POTASSIUM CHLORIDE TABS 20 MEQ TABLET.ER (FP) PO ONE ×2 (08:42→10:34)
[2021-06-11 08:43] LABS: MAGNESIUM 1.9 mg/dL (1.8-2.4)
[2021-06-11] MEDS ORDERED: INSULIN (NOVOLOG) ASPART 100 UNITS/ML 10ML VIAL SQ ONE (09:42)
[2021-06-11] MEDS ORDERED: ENOXAPARIN NA (PORCINE) 40 MG/0.4 ML DISP.SYRIN SQ SCH (10:00)
[2021-06-11] MEDS ORDERED: ENOXAPARIN NA (PORCINE) 40 MG/0.4 ML DISP.SYRIN SQ ONE (10:35)
[2021-06-11] MEDS ORDERED: KCL 10 MEQ IVPB 10 MEQ/100 ML INFUS.BAG IVPB ONE ×2 (10:35→13:54)
[2021-06-11 10:57] LABS: CHLORIDE 104 mmol/L (98-107); SODIUM 138 mmol/L (136-145)
[2021-06-11 10:59] LABS: CALCIUM 7.9 mg/dL (8.5-10.1)
[2021-06-11] MEDS: KCL 10 MEQ IVPB 10 MEQ/100 ML INFUS.BAG IVPB SCH ×2 (10:59→14:10)
[2021-06-11 11:00] LABS: ALBUMIN 1.9 g/dl (3.4-5.0); ANION GAP 18 MMOL/L (8-16); BLOOD UREA NITROGEN 21.4 mg/dL (7-18); CO2 15 mmol/L (21-32); GLUCOSE,RANDOM 341 mg/dL (74-106)
[2021-06-11 11:03] LABS: SGOT/AST 13 U/L (15-37); SGPT/ALT 12 U/L (13-61)
[2021-06-11 11:04] LABS: BILIRUBIN,TOTAL 0.5 mg/dL (0.2-1)
[2021-06-11 11:05] LABS: TOT PROT 6.7 g/dl (6.4-8.2)
[2021-06-11 11:06] LABS: ALK PHOS 106 U/L (45-117)
[2021-06-11] MEDS ORDERED: INSULIN (LEVEMIR) 100 UNITS/ML UNITS SQ ONE (11:34)
[2021-06-11] MEDS ORDERED: INSULIN SLIDING SCALE (NOVOLOG) 1 VIAL SQ SCH ×2 (12:00→22:00)
[2021-06-11] MEDS ORDERED: ACETAMINOPHEN 325 MG TABLET (FP) ONE (12:23)
[2021-06-11] MEDS ORDERED: DEXTROSE 50%-WATER - 25 GM/50 ML VIAL IVPUSH PRN (13:32)
[2021-06-11] MEDS ORDERED: MUPIROCIN 2% TOPICAL OINTMENT FOR DECOLONIZATION NS SCH (13:45)
[2021-06-11] MEDS ORDERED: INSULIN REGULAR 100 UNITS in SODIUM CHLORIDE 99 ML IVPB SCH (13:45)
[2021-06-11] MEDS ORDERED: PIPERACILLIN/TAZOB 3.375 GM 3.375 GM/50 ML BAG IVPB ONE (13:54)
[2021-06-11 14:00] LABS: BLOOD UREA NITROGEN 18.7 mg/dL (7-18)
[2021-06-11 14:03] LABS: CREATININE 0.9 mg/dL (0.55-1.3)
[2021-06-11] MEDS: PIPERACILLIN/TAZOB 3.375 GM 3.375 GM in DEXTROSE 5%-WATER - 50 ML IVPB SCH ×2 (14:10→19:35)
[2021-06-11 16:24] LABS: BLOOD UREA NITROGEN 19.7 mg/dL (7-18); CALCIUM 7.7 mg/dL (8.5-10.1)
[2021-06-11 16:28] LABS: CREATININE 0.9 mg/dL (0.55-1.3)
[2021-06-11] MEDS ORDERED: ACETAMINOPHEN 1000 MG/100 ML VIAL IVPB PRN (17:00)
[2021-06-11] MEDS ORDERED: MAG HYDROX/AL HYDROX/SIMETH 30 ML UNIT-DOSE CUP PO ONE (19:00)
[2021-06-11] MEDS ORDERED: PANTOPRAZOLE SODIUM 40 MG VIAL IVPUSH SCH (19:00)
[2021-06-11] MEDS ORDERED: DEXTROSE 5%-WATER - 50 ML IVPB ONE ×2 (19:27→23:42)
[2021-06-11] MEDS ORDERED: PIPERACILLIN/TAZOBACTAM 3.375 GM VIAL IVPB ONE ×2 (19:27→23:42)
[2021-06-11 20:50] LABS: CALCIUM 8.2 mg/dL (8.5-10.1)
[2021-06-11] MEDS: INSULIN SLIDING SCALE (NOVOLOG) 1 VIAL SQ SCH (21:13)
[2021-06-11] MEDS ORDERED: INSULIN (LEVEMIR) 100 UNITS/ML UNITS SQ SCH (22:00)
[2021-06-11] MEDS ORDERED: CHLORHEXIDINE GLUCONATE 4% CLEANSER FOR DECOLONIZATION TP SCH (22:00)
[2021-06-11] MEDS ORDERED: FAMOTIDINE 20 MG/50 ML IVPB 20 MG/50 ML MG IVPB ONE (23:36)
[2021-06-12] MEDS: PIPERACILLIN/TAZOB 3.375 GM 3.375 GM in DEXTROSE 5%-WATER - 50 ML IVPB SCH ×5 (02:07→18:34)
[2021-06-12] MEDS: INSULIN SLIDING SCALE (NOVOLOG) 1 VIAL SQ SCH ×4 (06:36→22:28)
[2021-06-12 06:58] LABS: BASO % 0.9 % (0-2.0); EOS % 0.1 % (0-4.5); HEMATOCRIT 25.1 % (32.4-45.2); HEMOGLOBIN 8.5 GM/dL (10.7-15.3); LYMPH % 4.4 % (8-40); MCH 27.4 pg (25.7-33.7); MCHC 33.9 g/dl (32.0-36.0); MEAN CELL VOLUME 80.7 fl (80-96); MEAN PLT VOLUME 8.6 fl (7.5-11.1); MONO % 3.9 % (3.8-10.2); NEUT % 90.7 % (42.8-82.8); PLATELET COUNT 344 10^3/uL (134-434); RBC 3.11 M/mm3 (3.60-5.2); RDW 14.2 % (11.6-15.6)
[2021-06-12 07:22] LABS: ALBUMIN 1.8 g/dl (3.4-5.0); CREATININE 0.8 mg/dL (0.55-1.3)
[2021-06-12 07:23] LABS: BLOOD UREA NITROGEN 16.5 mg/dL (7-18)
[2021-06-12 07:24] LABS: TOT PROT 6.4 g/dl (6.4-8.2)
[2021-06-12 07:26] LABS: PHOSPHOROUS 1.8 mg/dL (2.5-4.9)
[2021-06-12 07:27] LABS: MAGNESIUM 1.7 mg/dL (1.8-2.4)
[2021-06-12 07:28] LABS: BILIRUBIN,TOTAL 0.4 mg/dL (0.2-1)
[2021-06-12] MEDS ORDERED: PIPERACILLIN/TAZOBACTAM 3.375 GM VIAL IVPB ONE ×2 (09:05→17:18)
[2021-06-12] MEDS ORDERED: DEXTROSE 5%-WATER - 50 ML IVPB ONE ×2 (09:06→17:18)
[2021-06-12] MEDS ORDERED: MAGNESIUM SULF 50% (8.12 MEQ/2 ML-1 GM VIAL) IVPB ONE (09:15)
[2021-06-12] MEDS ORDERED: POTASSIUM PHOSPHATE 30 MM in SODIUM CHLORIDE 250 ML IVPB ONE (09:15)
[2021-06-12] MEDS ORDERED: METOCLOPRAMIDE HCL INJECTION 10 MG/2 ML VIAL IVPUSH ONE (09:15)
[2021-06-12] MEDS ORDERED: PANTOPRAZOLE SODIUM 40 MG VIAL IVPUSH SCH (10:00)
[2021-06-12] MEDS ORDERED: ENOXAPARIN NA (PORCINE) 40 MG/0.4 ML DISP.SYRIN SQ SCH (10:00)
[2021-06-12] MEDS ORDERED: NAPH,MB-DB/K PH,MBDB POWDER PACKET PO ONE (10:30)
[2021-06-12] MEDS ORDERED: INSULIN (LEVEMIR) 100 UNITS/ML UNITS SQ SCH (10:30)
[2021-06-12] MEDS ORDERED: PT OWN MED DRAWER 7, Y5N ONE (10:40)
[2021-06-12] MEDS ORDERED: ACETAMINOPHEN 1000 MG/100 ML VIAL IVPB ONE (15:09)
[2021-06-12] MEDS ORDERED: ACETAMINOPHEN INJECTION 100 ML IVPB ONE (15:14)
[2021-06-12] MEDS ORDERED: PNEUMOC 13-VAL CONJ-DIP CRM/PF 0.5 ML DISP.SYRIN IM ONE (17:35)
[2021-06-12] MEDS ORDERED: PNEUMOCOCCAL 23 VACCINE 0.5 ML VIAL IM ONE (18:00)
[2021-06-12] MEDS: LACTATED RINGERS SOLUTION 1,000 ML/1,000 ML INFUS.BAG IV SCH (18:15)
[2021-06-12] MEDS ORDERED: ACETAMINOPHEN 325 MG TABLET (FP) PO ONE (21:37)
[2021-06-12] MEDS: INSULIN (LEVEMIR) 100 UNITS/ML UNITS SQ SCH (22:27)
[2021-06-13] MEDS ORDERED: DEXTROSE 5%-WATER - 50 ML IVPB ONE ×3 (02:06→20:13)
[2021-06-13] MEDS ORDERED: PIPERACILLIN/TAZOBACTAM 3.375 GM VIAL IVPB ONE ×3 (02:06→20:13)
[2021-06-13] MEDS: LACTATED RINGERS SOLUTION 1,000 ML/1,000 ML INFUS.BAG IV SCH ×3 (02:29→22:00)
[2021-06-13] MEDS: PIPERACILLIN/TAZOB 3.375 GM 3.375 GM in DEXTROSE 5%-WATER - 50 ML IVPB SCH ×4 (02:31→20:19)
[2021-06-13] MEDS ORDERED: ACETAMINOPHEN 1000 MG/100 ML VIAL IVPB ONE (05:56)
[2021-06-13] MEDS: INSULIN SLIDING SCALE (NOVOLOG) 1 VIAL SQ SCH ×4 (06:50→22:00)
[2021-06-13] MEDS: INSULIN (LEVEMIR) 100 UNITS/ML UNITS SQ SCH ×2 (06:52→21:08)
[2021-06-13] MEDS ORDERED: PANTOPRAZOLE SODIUM 40 MG VIAL IVPUSH SCH (10:00)
[2021-06-13] MEDS ORDERED: ENOXAPARIN NA (PORCINE) 40 MG/0.4 ML DISP.SYRIN SQ SCH (10:00)
[2021-06-13] MEDS ORDERED: FLU VACC QS2021-22(6MOS UP)/PF 60 MCG/0.5 ML SYRINGE IM ONE (10:00)
[2021-06-13] MEDS ORDERED: ACETAMINOPHEN 500 MG TABLET (FP) PO PRN (15:06)
[2021-06-13 15:33] LABS: HEMATOCRIT 23.9 % (32.4-45.2); HEMOGLOBIN 7.8 GM/dL (10.7-15.3); MCH 26.8 pg (25.7-33.7); MCHC 32.7 g/dl (32.0-36.0); MEAN PLT VOLUME 7.9 fl (7.5-11.1); PLATELET COUNT 332 10^3/uL (134-434); RBC 2.91 M/mm3 (3.60-5.2); RDW 14.2 % (11.6-15.6); WHITE BLOOD COUNT 16.7 K/mm3 (4.0-10.0)
[2021-06-14] MEDS ORDERED: PIPERACILLIN/TAZOBACTAM 3.375 GM VIAL IVPB ONE ×3 (00:50→18:21)
[2021-06-14] MEDS ORDERED: DEXTROSE 5%-WATER - 50 ML IVPB ONE ×3 (00:51→18:22)
[2021-06-14] MEDS: PIPERACILLIN/TAZOB 3.375 GM 3.375 GM in DEXTROSE 5%-WATER - 50 ML IVPB SCH ×3 (01:03→18:41)
[2021-06-14] MEDS: INSULIN SLIDING SCALE (NOVOLOG) 1 VIAL SQ SCH ×4 (06:13→21:38)
[2021-06-14] MEDS: INSULIN (LEVEMIR) 100 UNITS/ML UNITS SQ SCH ×2 (06:13→21:38)
[2021-06-14] MEDS ORDERED: MIDAZOLAM HCL 2 MG/2 ML SINGLE DOSE VIAL ONE (07:16)
[2021-06-14] MEDS ORDERED: LIDOCAINE HCL 1%, 10 MG/ML (20ML VIAL) ONE (07:16)
[2021-06-14] MEDS ORDERED: VANCOMYCIN 1,000 MG VIAL (RESTRICTED TO ID ONLY) ONE (07:16)
[2021-06-14] MEDS ORDERED: LIDOCAINE HCL/PF 2% SDV 5ML VIAL ONE (07:16)
[2021-06-14] MEDS ORDERED: BUPIVACAINE HCL/PF 0.5% (5MG/ML) 10 ML VIAL ONE (07:16)
[2021-06-14] MEDS ORDERED: PROPOFOL 20 ML ONE (07:16)
[2021-06-14 07:29] LABS: BASO % 0.3 % (0-2.0); EOS % 0.1 % (0-4.5); HEMATOCRIT 22.1 % (32.4-45.2); HEMOGLOBIN 7.4 GM/dL (10.7-15.3); LYMPH % 6.8 % (8-40); MCH 27.3 pg (25.7-33.7); MCHC 33.5 g/dl (32.0-36.0); MEAN CELL VOLUME 81.3 fl (80-96); MEAN PLT VOLUME 8.1 fl (7.5-11.1); MONO % 5.1 % (3.8-10.2); NEUT % 87.7 % (42.8-82.8); PLATELET COUNT 336 10^3/uL (134-434); RBC 2.72 M/mm3 (3.60-5.2); RDW 14.1 % (11.6-15.6); WHITE BLOOD COUNT 14.9 K/mm3 (4.0-10.0)
[2021-06-14 07:45] LABS: CHLORIDE 103 mmol/L (98-107); SODIUM 140 mmol/L (136-145)
[2021-06-14 07:49] LABS: CALCIUM 7.8 mg/dL (8.5-10.1)
[2021-06-14 07:50] LABS: ALBUMIN 1.6 g/dl (3.4-5.0); BLOOD UREA NITROGEN 6.7 mg/dL (7-18); CO2 32 mmol/L (21-32); GLUCOSE,RANDOM 89 mg/dL (74-106); MAGNESIUM 1.6 mg/dL (1.8-2.4)
[2021-06-14 07:52] LABS: PHOSPHOROUS 2.4 mg/dL (2.5-4.9)
[2021-06-14 07:53] LABS: BILIRUBIN,TOTAL 0.3 mg/dL (0.2-1); CREATININE 0.7 mg/dL (0.55-1.3); SGOT/AST 17 U/L (15-37); SGPT/ALT 13 U/L (13-61)
[2021-06-14 07:55] LABS: ALK PHOS 107 U/L (45-117)
[2021-06-14 07:58] LABS: ANION GAP 5 MMOL/L (8-16)
[2021-06-14] MEDS ORDERED: KCL 10 MEQ IVPB 10 MEQ/100 ML INFUS.BAG IVPB SCH (08:15)
[2021-06-14] MEDS ORDERED: LIDOCAINE HCL 2% (50ML VIAL) PNB ONE (08:18)
[2021-06-14] MEDS ORDERED: MAGNESIUM 1GM/D5W 100ML - 100 ML IVPB IVPB ONE ×2 (08:19→09:13)
[2021-06-14] MEDS ORDERED: NAPH,MB-DB/K PH,MBDB POWDER PACKET PO ONE ×2 (08:20→09:13)
[2021-06-14] MEDS ORDERED: VANCOMYCIN 1,000 MG VIAL (RESTRICTED TO ID ONLY) IVPB ONE (08:35)
[2021-06-14] MEDS ORDERED: POTASSIUM CHLORIDE 10 MEQ PREMIX IVPB (POTASSIUM RIDER) IVPB ONE (09:10)
[2021-06-14] MEDS ORDERED: ONDANSETRON 4 MG/2 ML VIAL IVPUSH PRN (09:12)
[2021-06-14] MEDS: LACTATED RINGERS SOLUTION 1,000 ML/1,000 ML INFUS.BAG IV SCH ×2 (10:38→21:37)
[2021-06-14] MEDS: KCL 10 MEQ IVPB 10 MEQ/100 ML INFUS.BAG IVPB SCH ×2 (10:38→13:10)
[2021-06-14] MEDS: ENOXAPARIN NA (PORCINE) 40 MG/0.4 ML DISP.SYRIN SQ SCH (10:46)
[2021-06-14] MEDS: PANTOPRAZOLE SODIUM 40 MG VIAL IVPUSH SCH (10:48)
[2021-06-14] MEDS: oxyCODONE HCL 5 MG TABLET PO PRN (17:18)
[2021-06-14 17:47] LABS: HEMATOCRIT 22.4 % (32.4-45.2); HEMOGLOBIN 7.6 GM/dL (10.7-15.3); MCH 27.4 pg (25.7-33.7); MCHC 34.1 g/dl (32.0-36.0); MEAN CELL VOLUME 80.4 fl (80-96); PLATELET COUNT 317 10^3/uL (134-434); RBC 2.78 M/mm3 (3.60-5.2); RDW 14.1 % (11.6-15.6); WHITE BLOOD COUNT 15.6 K/mm3 (4.0-10.0)
[2021-06-14] MEDS: ACETAMINOPHEN 500 MG TABLET (FP) PO PRN (18:41)
[2021-06-15] MEDS ORDERED: PIPERACILLIN/TAZOBACTAM 3.375 GM VIAL IVPB ONE ×3 (00:35→17:59)
[2021-06-15] MEDS ORDERED: DEXTROSE 5%-WATER - 50 ML IVPB ONE ×3 (00:35→18:00)
[2021-06-15] MEDS: PIPERACILLIN/TAZOB 3.375 GM 3.375 GM in DEXTROSE 5%-WATER - 50 ML IVPB SCH ×3 (01:04→18:06)
[2021-06-15] MEDS: INSULIN SLIDING SCALE (NOVOLOG) 1 VIAL SQ SCH ×4 (06:16→21:46)
[2021-06-15] MEDS: LACTATED RINGERS SOLUTION 1,000 ML/1,000 ML INFUS.BAG IV SCH (06:18)
[2021-06-15] MEDS: INSULIN (LEVEMIR) 100 UNITS/ML UNITS SQ SCH ×2 (06:19→21:46)
[2021-06-15] MEDS: oxyCODONE HCL 5 MG TABLET PO PRN (06:20)
[2021-06-15 08:55] LABS: BASO % 0.7 % (0-2.0); EOS % 0.5 % (0-4.5); HEMATOCRIT 20.2 % (32.4-45.2); LYMPH % 7.6 % (8-40); MCH 27.3 pg (25.7-33.7); MCHC 33.8 g/dl (32.0-36.0); MEAN CELL VOLUME 80.9 fl (80-96); MEAN PLT VOLUME 8.5 fl (7.5-11.1); MONO % 6.8 % (3.8-10.2); NEUT % 84.4 % (42.8-82.8); PLATELET COUNT 315 10^3/uL (134-434); RDW 14.4 % (11.6-15.6); WHITE BLOOD COUNT 12.9 K/mm3 (4.0-10.0)
[2021-06-15 09:19] LABS: HEMOGLOBIN 6.8 GM/dL (10.7-15.3)
[2021-06-15 09:32] LABS: MAGNESIUM 1.7 mg/dL (1.8-2.4)
[2021-06-15 09:35] LABS: ALBUMIN 1.6 g/dl (3.4-5.0); BLOOD UREA NITROGEN 10.2 mg/dL (7-18); CALCIUM 7.9 mg/dL (8.5-10.1)
[2021-06-15 09:37] LABS: BILIRUBIN,TOTAL 0.3 mg/dL (0.2-1); CREATININE 0.8 mg/dL (0.55-1.3); PHOSPHOROUS 2.6 mg/dL (2.5-4.9); TOT PROT 6.2 g/dl (6.4-8.2)
[2021-06-15] MEDS ORDERED: MAGNESIUM 1GM/D5W 100ML - 100 ML IVPB IVPB ONE (11:00)
[2021-06-15] MEDS: ENOXAPARIN NA (PORCINE) 40 MG/0.4 ML DISP.SYRIN SQ SCH (12:22)
[2021-06-15] MEDS: PANTOPRAZOLE SODIUM 40 MG VIAL IVPUSH SCH (12:22)
[2021-06-15] MEDS: ACETAMINOPHEN 500 MG TABLET (FP) PO PRN (14:14)
[2021-06-15] MEDS ORDERED: POTASSIUM CHLORIDE TABS 20 MEQ TABLET.ER (FP) PO ONE (14:45)
[2021-06-15] MEDS ORDERED: INSULIN (NOVOLOG) ASPART 100 UNITS/ML 10ML VIAL ONE (21:04)
[2021-06-16] MEDS ORDERED: PIPERACILLIN/TAZOBACTAM 3.375 GM VIAL IVPB ONE ×3 (00:57→17:57)
[2021-06-16] MEDS ORDERED: DEXTROSE 5%-WATER - 50 ML IVPB ONE ×3 (00:57→17:57)
[2021-06-16] MEDS: PIPERACILLIN/TAZOB 3.375 GM 3.375 GM in DEXTROSE 5%-WATER - 50 ML IVPB SCH ×3 (01:21→18:08)
[2021-06-16] MEDS: INSULIN (LEVEMIR) 100 UNITS/ML UNITS SQ SCH ×2 (06:21→16:54)
[2021-06-16] MEDS: INSULIN SLIDING SCALE (NOVOLOG) 1 VIAL SQ SCH ×4 (06:24→21:00)
[2021-06-16] MEDS: LACTATED RINGERS SOLUTION 1,000 ML/1,000 ML INFUS.BAG IV SCH ×4 (08:57→15:52)
[2021-06-16] MEDS: PANTOPRAZOLE SODIUM 40 MG VIAL IVPUSH SCH (09:23)
[2021-06-16] MEDS: ENOXAPARIN NA (PORCINE) 40 MG/0.4 ML DISP.SYRIN SQ SCH (09:24)
[2021-06-16 10:22] LABS: ALBUMIN 1.8 g/dl (3.4-5.0); BLOOD UREA NITROGEN 9.5 mg/dL (7-18)
[2021-06-16 10:25] LABS: CREATININE 0.9 mg/dL (0.55-1.3)
[2021-06-16 10:28] LABS: BILIRUBIN,TOTAL 0.5 mg/dL (0.2-1); TOT PROT 7.1 g/dl (6.4-8.2)
[2021-06-16 10:42] LABS: BASO % 0.5 % (0-2.0); EOS % 0.4 % (0-4.5); HEMATOCRIT 27.7 % (32.4-45.2); HEMOGLOBIN 9.4 GM/dL (10.7-15.3); LYMPH % 12.3 % (8-40); MCH 28.2 pg (25.7-33.7); MCHC 33.9 g/dl (32.0-36.0); MEAN CELL VOLUME 83.3 fl (80-96); MEAN PLT VOLUME 8.9 fl (7.5-11.1); MONO % 7.5 % (3.8-10.2); NEUT % 79.3 % (42.8-82.8); PLATELET COUNT 432 10^3/uL (134-434); RBC 3.33 M/mm3 (3.60-5.2); RDW 14.2 % (11.6-15.6); WHITE BLOOD COUNT 13.7 K/mm3 (4.0-10.0)
[2021-06-16] MEDS: oxyCODONE HCL 5 MG TABLET PO PRN (12:25)
[2021-06-16] MEDS: ACETAMINOPHEN 500 MG TABLET (FP) PO PRN (15:27)
[2021-06-17] MEDS: LACTATED RINGERS SOLUTION 1,000 ML/1,000 ML INFUS.BAG IV SCH ×2 (00:05→10:10)
[2021-06-17] MEDS ORDERED: DEXTROSE 5%-WATER - 50 ML IVPB ONE ×3 (00:58→16:53)
[2021-06-17] MEDS ORDERED: PIPERACILLIN/TAZOBACTAM 3.375 GM VIAL IVPB ONE ×3 (00:58→16:53)
[2021-06-17] MEDS: PIPERACILLIN/TAZOB 3.375 GM 3.375 GM in DEXTROSE 5%-WATER - 50 ML IVPB SCH ×3 (01:08→17:18)
[2021-06-17] MEDS: INSULIN (LEVEMIR) 100 UNITS/ML UNITS SQ SCH ×2 (06:19→17:18)
[2021-06-17] MEDS: INSULIN SLIDING SCALE (NOVOLOG) 1 VIAL SQ SCH ×4 (06:19→22:04)
[2021-06-17 10:01] LABS: HEMATOCRIT 25.7 % (32.4-45.2); HEMOGLOBIN 8.5 GM/dL (10.7-15.3); MCH 27.9 pg (25.7-33.7); MCHC 33.3 g/dl (32.0-36.0); MEAN CELL VOLUME 83.8 fl (80-96); PLATELET COUNT 472 10^3/uL (134-434); RBC 3.06 M/mm3 (3.60-5.2); RDW 14.1 % (11.6-15.6); WHITE BLOOD COUNT 12.6 K/mm3 (4.0-10.0)
[2021-06-17] MEDS: ACETAMINOPHEN 500 MG TABLET (FP) PO PRN (10:09)
[2021-06-17] MEDS: PANTOPRAZOLE SODIUM 40 MG VIAL IVPUSH SCH (10:09)
[2021-06-17] MEDS: ENOXAPARIN NA (PORCINE) 40 MG/0.4 ML DISP.SYRIN SQ SCH (10:09)
[2021-06-17 10:23] LABS: CALCIUM 8.4 mg/dL (8.5-10.1)
[2021-06-17 10:27] LABS: CREATININE 0.8 mg/dL (0.55-1.3)
[2021-06-18] MEDS ORDERED: PIPERACILLIN/TAZOBACTAM 3.375 GM VIAL IVPB ONE ×3 (02:00→17:33)
[2021-06-18] MEDS ORDERED: DEXTROSE 5%-WATER - 50 ML IVPB ONE ×3 (02:01→17:33)
[2021-06-18] MEDS: PIPERACILLIN/TAZOB 3.375 GM 3.375 GM in DEXTROSE 5%-WATER - 50 ML IVPB SCH ×3 (02:07→18:08)
[2021-06-18] MEDS: INSULIN (LEVEMIR) 100 UNITS/ML UNITS SQ SCH ×2 (06:05→17:10)
[2021-06-18] MEDS: INSULIN SLIDING SCALE (NOVOLOG) 1 VIAL SQ SCH ×4 (06:05→22:17)
[2021-06-18 09:20] LABS: HEMATOCRIT 22.8 % (32.4-45.2); HEMOGLOBIN 7.9 GM/dL (10.7-15.3); MCH 28.1 pg (25.7-33.7); MCHC 34.8 g/dl (32.0-36.0); MEAN CELL VOLUME 80.9 fl (80-96); MEAN PLT VOLUME 7.3 fl (7.5-11.1); PLATELET COUNT 477 10^3/uL (134-434); RBC 2.82 M/mm3 (3.60-5.2); RDW 14.8 % (11.6-15.6); WHITE BLOOD COUNT 12.7 K/mm3 (4.0-10.0)
[2021-06-18 09:44] LABS: CALCIUM 8.3 mg/dL (8.5-10.1)
[2021-06-18] MEDS: ACETAMINOPHEN 500 MG TABLET (FP) PO PRN ×2 (11:15→22:17)
[2021-06-18] MEDS: PANTOPRAZOLE SODIUM 40 MG VIAL IVPUSH SCH (11:17)
[2021-06-18] MEDS: ENOXAPARIN NA (PORCINE) 40 MG/0.4 ML DISP.SYRIN SQ SCH (11:17)
[2021-06-19] MEDS ORDERED: PIPERACILLIN/TAZOBACTAM 3.375 GM VIAL IVPB ONE ×3 (03:03→17:04)
[2021-06-19] MEDS: PIPERACILLIN/TAZOB 3.375 GM 3.375 GM in DEXTROSE 5%-WATER - 50 ML IVPB SCH ×3 (03:14→17:07)
[2021-06-19] MEDS: INSULIN (LEVEMIR) 100 UNITS/ML UNITS SQ SCH ×2 (06:11→16:33)
[2021-06-19] MEDS: INSULIN SLIDING SCALE (NOVOLOG) 1 VIAL SQ SCH ×4 (06:11→22:39)
[2021-06-19] MEDS ORDERED: PT OWN MED DRAWER 7, Y5N ONE (06:57)
[2021-06-19] MEDS ORDERED: DEXTROSE 5%-WATER - 50 ML IVPB ONE ×2 (09:47→17:05)
[2021-06-19] MEDS: ENOXAPARIN NA (PORCINE) 40 MG/0.4 ML DISP.SYRIN SQ SCH (09:49)
[2021-06-19] MEDS: PANTOPRAZOLE SODIUM 40 MG VIAL IVPUSH SCH (09:50)
[2021-06-19 10:19] LABS: HEMATOCRIT 25.6 % (32.4-45.2); HEMOGLOBIN 8.5 GM/dL (10.7-15.3); MCH 27.8 pg (25.7-33.7); MCHC 33.3 g/dl (32.0-36.0); MEAN CELL VOLUME 83.5 fl (80-96); MEAN PLT VOLUME 7.2 fl (7.5-11.1); PLATELET COUNT 544 10^3/uL (134-434); RBC 3.07 M/mm3 (3.60-5.2); RDW 14.8 % (11.6-15.6)
[2021-06-19 10:46] LABS: CALCIUM 8.5 mg/dL (8.5-10.1)
[2021-06-19 10:47] LABS: ALBUMIN 1.8 g/dl (3.4-5.0); BLOOD UREA NITROGEN 13.5 mg/dL (7-18)
[2021-06-19 10:50] LABS: CREATININE 0.9 mg/dL (0.55-1.3)
[2021-06-19 10:51] LABS: BILIRUBIN,TOTAL 0.2 mg/dL (0.2-1); TOT PROT 7.2 g/dl (6.4-8.2)
[2021-06-19 11:58] VITALS: BMI 23.2
[2021-06-19] MEDS ORDERED: SENNOSIDES 8.6MG TABLET (FP) PO PRN (12:42)
[2021-06-19] MEDS ORDERED: DOCUSATE SODIUM 100 MG CAPSULE (FP) PO PRN (12:42)
[2021-06-19] MEDS: POLYETHYLENE GLYCOL (HEALTHYLAX) 3350 17 GM PACKET PO SCH ×2 (13:02→22:39)
[2021-06-19] MEDS ORDERED: MAGNESIUM 2GM/50ML STERILE WATER IVPB IVPB ONE (13:30)
[2021-06-19 17:57] LABS: EPI CELLS 1 /uL (0-25.1); HYALINE CASTS 0 /uL (0-3.1); URINE APPEARANCE CLEAR; URINE BACTERIA 2 /uL (0-1359); URINE BILIRUBIN NEGATIVE (NEGATIVE); URINE COLOR YELLOW; URINE GLUCOSE (UA) 1+ (NEGATIVE); URINE KETONE NEGATIVE (NEGATIVE); URINE LEUK ESTERASE NEGATIVE (NEGATIVE); URINE NITRITE NEGATIVE (NEGATIVE); URINE PROTEIN 1+ (NEGATIVE); URINE RBC 2 /uL (0-23.9); URINE UROBILINOGEN 0.2 mg/dL (0.2-1.0); URINE WBC 1 /uL (0-25.8)
[2021-06-19] MEDS: ACETAMINOPHEN 500 MG TABLET (FP) PO PRN (20:20)
[2021-06-20] MEDS ORDERED: PIPERACILLIN/TAZOBACTAM 3.375 GM VIAL IVPB ONE ×3 (01:56→18:20)
[2021-06-20] MEDS ORDERED: DEXTROSE 5%-WATER - 50 ML IVPB ONE ×3 (01:56→18:20)
[2021-06-20] MEDS: PIPERACILLIN/TAZOB 3.375 GM 3.375 GM in DEXTROSE 5%-WATER - 50 ML IVPB SCH ×3 (02:11→18:24)
[2021-06-20] MEDS: INSULIN (LEVEMIR) 100 UNITS/ML UNITS SQ SCH ×2 (06:18→18:22)
[2021-06-20] MEDS: INSULIN SLIDING SCALE (NOVOLOG) 1 VIAL SQ SCH ×4 (06:19→21:08)
[2021-06-20 09:06] LABS: BASO % 0.2 % (0-2.0); EOS % 0.5 % (0-4.5); HEMATOCRIT 23.4 % (32.4-45.2); HEMOGLOBIN 7.8 GM/dL (10.7-15.3); LYMPH % 10.3 % (8-40); MCH 27.6 pg (25.7-33.7); MCHC 33.2 g/dl (32.0-36.0); MEAN CELL VOLUME 83.1 fl (80-96); MEAN PLT VOLUME 7.1 fl (7.5-11.1); MONO % 5.4 % (3.8-10.2); NEUT % 83.6 % (42.8-82.8); PLATELET COUNT 559 10^3/uL (134-434); RBC 2.82 M/mm3 (3.60-5.2); RDW 14.8 % (11.6-15.6); WHITE BLOOD COUNT 13.2 K/mm3 (4.0-10.0)
[2021-06-20 09:30] LABS: CALCIUM 8.2 mg/dL (8.5-10.1)
[2021-06-20 09:31] LABS: ALBUMIN 1.8 g/dl (3.4-5.0); MAGNESIUM 2.1 mg/dL (1.8-2.4)
[2021-06-20 09:34] LABS: PHOSPHOROUS 2.7 mg/dL (2.5-4.9)
[2021-06-20 09:36] LABS: BILIRUBIN,TOTAL 0.2 mg/dL (0.2-1); TOT PROT 7.3 g/dl (6.4-8.2)
[2021-06-20] MEDS: POLYETHYLENE GLYCOL (HEALTHYLAX) 3350 17 GM PACKET PO SCH ×2 (10:35→21:08)
[2021-06-20] MEDS: ENOXAPARIN NA (PORCINE) 40 MG/0.4 ML DISP.SYRIN SQ SCH (10:36)
[2021-06-20] MEDS: PANTOPRAZOLE SODIUM 40 MG VIAL IVPUSH SCH (10:37)
[2021-06-20] MEDS: MULTIVITAMINS (DAILY MVI) TABLET (FP) PO SCH (10:37)
[2021-06-20] MEDS ORDERED: INSULIN (NOVOLOG) ASPART 100 UNITS/ML 10ML VIAL ONE (11:50)
[2021-06-20] MEDS: ACETAMINOPHEN 500 MG TABLET (FP) PO PRN (13:10)
[2021-06-21] MEDS ORDERED: DEXTROSE 5%-WATER - 50 ML IVPB ONE ×2 (01:37→09:48)
[2021-06-21] MEDS ORDERED: PIPERACILLIN/TAZOBACTAM 3.375 GM VIAL IVPB ONE ×2 (01:37→09:48)
[2021-06-21] MEDS: PIPERACILLIN/TAZOB 3.375 GM 3.375 GM in DEXTROSE 5%-WATER - 50 ML IVPB SCH ×2 (01:46→09:49)
[2021-06-21] MEDS: INSULIN (LEVEMIR) 100 UNITS/ML UNITS SQ SCH ×2 (06:17→17:02)
[2021-06-21] MEDS: INSULIN SLIDING SCALE (NOVOLOG) 1 VIAL SQ SCH ×4 (06:18→21:50)
[2021-06-21 09:44] LABS: BASO % 0.3 % (0-2.0); EOS % 0.7 % (0-4.5); HEMATOCRIT 28.1 % (32.4-45.2); HEMOGLOBIN 9.2 GM/dL (10.7-15.3); LYMPH % 13.1 % (8-40); MCH 27.6 pg (25.7-33.7); MCHC 32.9 g/dl (32.0-36.0); MEAN CELL VOLUME 83.8 fl (80-96); MEAN PLT VOLUME 7.2 fl (7.5-11.1); MONO % 5.6 % (3.8-10.2); NEUT % 80.3 % (42.8-82.8); PLATELET COUNT 763 10^3/uL (134-434); RBC 3.35 M/mm3 (3.60-5.2); RDW 14.7 % (11.6-15.6); WHITE BLOOD COUNT 11.8 K/mm3 (4.0-10.0)
[2021-06-21] MEDS: POLYETHYLENE GLYCOL (HEALTHYLAX) 3350 17 GM PACKET PO SCH ×2 (09:49→21:50)
[2021-06-21] MEDS: ACETAMINOPHEN 500 MG TABLET (FP) PO PRN (09:51)
[2021-06-21] MEDS: PANTOPRAZOLE SODIUM 40 MG VIAL IVPUSH SCH (09:52)
[2021-06-21] MEDS: MULTIVITAMINS (DAILY MVI) TABLET (FP) PO SCH (09:52)
[2021-06-21] MEDS: ENOXAPARIN NA (PORCINE) 40 MG/0.4 ML DISP.SYRIN SQ SCH (10:00)
[2021-06-21 10:06] LABS: BLOOD UREA NITROGEN 19.6 mg/dL (7-18)
[2021-06-21 10:10] LABS: BILIRUBIN,TOTAL 0.2 mg/dL (0.2-1); TOT PROT 8.2 g/dl (6.4-8.2)
[2021-06-21] MEDS ORDERED: INSULIN (NOVOLOG) ASPART 100 UNITS/ML 10ML VIAL ONE (11:52)
[2021-06-21] MEDS: AMOX TR/POT CLAV 875MG/125MG TABLETS (FP) PO SCH (17:02)
[2021-06-22] MEDS: INSULIN SLIDING SCALE (NOVOLOG) 1 VIAL SQ SCH ×4 (06:12→21:10)
[2021-06-22] MEDS: INSULIN (LEVEMIR) 100 UNITS/ML UNITS SQ SCH ×2 (06:12→17:24)
[2021-06-22] MEDS: AMOX TR/POT CLAV 875MG/125MG TABLETS (FP) PO SCH ×2 (08:57→17:23)
[2021-06-22 09:04] LABS: BASO % 0.9 % (0-2.0); EOS % 0.5 % (0-4.5); HEMATOCRIT 27.6 % (32.4-45.2); HEMOGLOBIN 9.1 GM/dL (10.7-15.3); LYMPH % 13.1 % (8-40); MCH 27.4 pg (25.7-33.7); MEAN CELL VOLUME 82.8 fl (80-96); MONO % 4.8 % (3.8-10.2); NEUT % 80.7 % (42.8-82.8); PLATELET COUNT 760 10^3/uL (134-434); RBC 3.34 M/mm3 (3.60-5.2); WHITE BLOOD COUNT 12.3 K/mm3 (4.0-10.0)
[2021-06-22 09:29] LABS: CALCIUM 8.9 mg/dL (8.5-10.1)
[2021-06-22 09:30] LABS: ALBUMIN 1.9 g/dl (3.4-5.0); BLOOD UREA NITROGEN 27.8 mg/dL (7-18)
[2021-06-22 09:33] LABS: BILIRUBIN,TOTAL 0.2 mg/dL (0.2-1); CREATININE 1.1 mg/dL (0.55-1.3)
[2021-06-22 09:35] LABS: TOT PROT 7.7 g/dl (6.4-8.2)
[2021-06-22] MEDS: MULTIVITAMINS (DAILY MVI) TABLET (FP) PO SCH (10:50)
[2021-06-22] MEDS: ENOXAPARIN NA (PORCINE) 40 MG/0.4 ML DISP.SYRIN SQ SCH (10:50)
[2021-06-22] MEDS: POLYETHYLENE GLYCOL (HEALTHYLAX) 3350 17 GM PACKET PO SCH ×2 (10:50→21:12)
[2021-06-22] MEDS: PANTOPRAZOLE SODIUM 40 MG VIAL IVPUSH SCH (11:12)
[2021-06-23] MEDS: INSULIN SLIDING SCALE (NOVOLOG) 1 VIAL SQ SCH ×4 (06:01→21:19)
[2021-06-23] MEDS: INSULIN (LEVEMIR) 100 UNITS/ML UNITS SQ SCH ×2 (06:02→17:19)
[2021-06-23] MEDS ORDERED: PT OWN MED DRAWER 7, Y5N ONE (08:31)
[2021-06-23] MEDS: AMOX TR/POT CLAV 875MG/125MG TABLETS (FP) PO SCH ×2 (08:34→17:20)
[2021-06-23 08:51] LABS: BASO % 0.5 % (0-2.0); EOS % 0.9 % (0-4.5); HEMATOCRIT 27.2 % (32.4-45.2); HEMOGLOBIN 9.2 GM/dL (10.7-15.3); LYMPH % 14.8 % (8-40); MCH 28.1 pg (25.7-33.7); MCHC 33.8 g/dl (32.0-36.0); MEAN CELL VOLUME 83.2 fl (80-96); MEAN PLT VOLUME 7.1 fl (7.5-11.1); MONO % 6.3 % (3.8-10.2); NEUT % 77.5 % (42.8-82.8); PLATELET COUNT 757 10^3/uL (134-434); RBC 3.28 M/mm3 (3.60-5.2); RDW 15.1 % (11.6-15.6)
[2021-06-23] MEDS: POLYETHYLENE GLYCOL (HEALTHYLAX) 3350 17 GM PACKET PO SCH ×2 (09:04→21:14)
[2021-06-23] MEDS: MULTIVITAMINS (DAILY MVI) TABLET (FP) PO SCH (09:04)
[2021-06-23] MEDS: ENOXAPARIN NA (PORCINE) 40 MG/0.4 ML DISP.SYRIN SQ SCH (09:04)
[2021-06-23] MEDS: ZINC SULFATE 220 MG CAPSULE (FP) PO SCH (09:04)
[2021-06-23] MEDS: PANTOPRAZOLE SODIUM 40 MG VIAL IVPUSH SCH (09:04)
[2021-06-23] MEDS: ASCORBIC ACID 250 MG TABLET (FP) PO SCH (09:04)
[2021-06-23 09:14] LABS: ALBUMIN 1.9 g/dl (3.4-5.0)
[2021-06-23 09:15] LABS: BLOOD UREA NITROGEN 26.2 mg/dL (7-18); CALCIUM 8.9 mg/dL (8.5-10.1)
[2021-06-23 09:17] LABS: CREATININE 1.1 mg/dL (0.55-1.3)
[2021-06-23 09:19] LABS: BILIRUBIN,TOTAL 0.3 mg/dL (0.2-1); TOT PROT 7.6 g/dl (6.4-8.2)
[2021-06-23] MEDS ORDERED: INSULIN (NOVOLOG) ASPART 100 UNITS/ML 10ML VIAL ONE (17:18)
[2021-06-24] MEDS: INSULIN SLIDING SCALE (NOVOLOG) 1 VIAL SQ SCH ×4 (06:00→21:31)
[2021-06-24] MEDS: INSULIN (LEVEMIR) 100 UNITS/ML UNITS SQ SCH ×2 (06:00→16:24)
[2021-06-24] MEDS: AMOX TR/POT CLAV 875MG/125MG TABLETS (FP) PO SCH ×2 (07:51→16:30)
[2021-06-24 08:20] LABS: BASO % 0.6 % (0-2.0); EOS % 1.1 % (0-4.5); HEMATOCRIT 27.5 % (32.4-45.2); HEMOGLOBIN 9.5 GM/dL (10.7-15.3); LYMPH % 18.1 % (8-40); MCH 28.3 pg (25.7-33.7); MCHC 34.5 g/dl (32.0-36.0); MEAN CELL VOLUME 82.1 fl (80-96); MEAN PLT VOLUME 6.9 fl (7.5-11.1); MONO % 5.8 % (3.8-10.2); NEUT % 74.4 % (42.8-82.8); PLATELET COUNT 767 10^3/uL (134-434); RBC 3.35 M/mm3 (3.60-5.2); RDW 14.7 % (11.6-15.6); WHITE BLOOD COUNT 9.2 K/mm3 (4.0-10.0)
[2021-06-24 08:36] LABS: BLOOD UREA NITROGEN 30.5 mg/dL (7-18)
[2021-06-24 08:39] LABS: CREATININE 1.1 mg/dL (0.55-1.3)
[2021-06-24] MEDS ORDERED: PT OWN MED DRAWER 7, Y5N ONE (09:29)
[2021-06-24] MEDS: ASCORBIC ACID 250 MG TABLET (FP) PO SCH (09:30)
[2021-06-24] MEDS: POLYETHYLENE GLYCOL (HEALTHYLAX) 3350 17 GM PACKET PO SCH ×2 (09:30→21:25)
[2021-06-24] MEDS: ENOXAPARIN NA (PORCINE) 40 MG/0.4 ML DISP.SYRIN SQ SCH (09:30)
[2021-06-24] MEDS: MULTIVITAMINS (DAILY MVI) TABLET (FP) PO SCH (09:30)
[2021-06-24] MEDS: PANTOPRAZOLE SODIUM 40 MG VIAL IVPUSH SCH (09:30)
[2021-06-24] MEDS: ZINC SULFATE 220 MG CAPSULE (FP) PO SCH (09:30)
[2021-06-25] MEDS: INSULIN SLIDING SCALE (NOVOLOG) 1 VIAL SQ SCH ×4 (06:03→21:30)
[2021-06-25] MEDS: INSULIN (LEVEMIR) 100 UNITS/ML UNITS SQ SCH ×2 (06:04→17:35)
[2021-06-25 08:28] LABS: BASO % 1.3 % (0-2.0); EOS % 1.2 % (0-4.5); HEMATOCRIT 30.7 % (32.4-45.2); HEMOGLOBIN 10.2 GM/dL (10.7-15.3); LYMPH % 19.8 % (8-40); MCH 27.8 pg (25.7-33.7); MCHC 33.3 g/dl (32.0-36.0); MEAN CELL VOLUME 83.3 fl (80-96); MEAN PLT VOLUME 7.1 fl (7.5-11.1); MONO % 4.3 % (3.8-10.2); NEUT % 73.4 % (42.8-82.8); PLATELET COUNT 899 10^3/uL (134-434); RBC 3.69 M/mm3 (3.60-5.2); RDW 14.9 % (11.6-15.6); WHITE BLOOD COUNT 9.5 K/mm3 (4.0-10.0)
[2021-06-25] MEDS: AMOX TR/POT CLAV 875MG/125MG TABLETS (FP) PO SCH ×2 (08:51→17:35)
[2021-06-25] MEDS: ZINC SULFATE 220 MG CAPSULE (FP) PO SCH (09:17)
[2021-06-25] MEDS: PANTOPRAZOLE SODIUM 40 MG VIAL IVPUSH SCH (09:17)
[2021-06-25] MEDS: POLYETHYLENE GLYCOL (HEALTHYLAX) 3350 17 GM PACKET PO SCH ×2 (09:17→21:21)
[2021-06-25] MEDS: ENOXAPARIN NA (PORCINE) 40 MG/0.4 ML DISP.SYRIN SQ SCH (09:17)
[2021-06-25] MEDS: MULTIVITAMINS (DAILY MVI) TABLET (FP) PO SCH (09:17)
[2021-06-25] MEDS: ASCORBIC ACID 250 MG TABLET (FP) PO SCH (09:17)
[2021-06-25 09:35] LABS: CALCIUM 9.3 mg/dL (8.5-10.1)
[2021-06-25 09:36] LABS: BLOOD UREA NITROGEN 34.2 mg/dL (7-18)
[2021-06-25 09:39] LABS: CREATININE 1.2 mg/dL (0.55-1.3)
[2021-06-25] MEDS ORDERED: LIDOCAINE HCL 1%, 10 MG/ML (20ML VIAL) ONE ×2 (15:59→17:13)
[2021-06-25] MEDS ORDERED: MIDAZOLAM HCL 2 MG/2 ML SINGLE DOSE VIAL ONE (17:30)
[2021-06-25] MEDS ORDERED: PROPOFOL 20 ML ONE (17:30)
[2021-06-25] MEDS ORDERED: ceFAZolin SODIUM 1 GM VIAL IVPB ONE (17:35)
[2021-06-25] MEDS ORDERED: ONDANSETRON 4 MG/2 ML VIAL ONE (17:37)
[2021-06-25] MEDS ORDERED: ceFAZolin SODIUM 1 GM VIAL ONE (17:37)
[2021-06-25] MEDS ORDERED: LIDOCAINE HCL 1%, 10 MG/ML (20ML VIAL) NR ONE (17:46)
[2021-06-25] MEDS ORDERED: SENNOSIDES 8.6MG TABLET (FP) PO PRN (18:13)
[2021-06-25] MEDS ORDERED: DOCUSATE SODIUM 100 MG CAPSULE (FP) PO PRN (18:13)
[2021-06-25] MEDS ORDERED: ACETAMINOPHEN 500 MG TABLET (FP) PO PRN (18:13)
[2021-06-26] MEDS: INSULIN SLIDING SCALE (NOVOLOG) 1 VIAL SQ SCH ×3 (06:24→17:18)
[2021-06-26] MEDS: INSULIN (LEVEMIR) 100 UNITS/ML UNITS SQ SCH ×2 (06:26→17:17)
[2021-06-26 09:53] LABS: BASO % 0.5 % (0-2.0); EOS % 1.2 % (0-4.5); HEMOGLOBIN 10.1 GM/dL (10.7-15.3); LYMPH % 20.1 % (8-40); MCH 27.9 pg (25.7-33.7); MCHC 33.7 g/dl (32.0-36.0); MEAN CELL VOLUME 82.8 fl (80-96); MONO % 6.6 % (3.8-10.2); NEUT % 71.6 % (42.8-82.8); PLATELET COUNT 830 10^3/uL (134-434); RBC 3.63 M/mm3 (3.60-5.2); RDW 14.9 % (11.6-15.6); WHITE BLOOD COUNT 7.9 K/mm3 (4.0-10.0)
[2021-06-26] MEDS ORDERED: ENOXAPARIN NA (PORCINE) 40 MG/0.4 ML DISP.SYRIN SQ SCH (10:00)
[2021-06-26] MEDS ORDERED: COLLAGENASE CLOSTRIDIUM HIST. 30 GRAMS TUBE TP SCH (10:00)
[2021-06-26] MEDS ORDERED: ZINC SULFATE 220 MG CAPSULE (FP) PO SCH (10:00)
[2021-06-26] MEDS ORDERED: ASCORBIC ACID 250 MG TABLET (FP) PO SCH (10:00)
[2021-06-26] MEDS ORDERED: MULTIVITAMINS (DAILY MVI) TABLET (FP) PO SCH (10:00)
[2021-06-26] MEDS ORDERED: PANTOPRAZOLE SODIUM 40 MG VIAL IVPUSH SCH (10:00)
[2021-06-26 10:54] LABS: BLOOD UREA NITROGEN 32.7 mg/dL (7-18); CALCIUM 9.6 mg/dL (8.5-10.1)
[2021-06-26 10:58] LABS: CREATININE 1.1 mg/dL (0.55-1.3)
[2021-06-26 10:59] LABS: BILIRUBIN,TOTAL 0.5 mg/dL (0.2-1); TOT PROT 8.6 g/dl (6.4-8.2)
[2021-06-26 11:09] LABS: ALBUMIN 2.3 g/dl (3.4-5.0)
[2021-06-26] MEDS: AMOX TR/POT CLAV 875MG/125MG TABLETS (FP) PO SCH ×2 (11:35→17:18)
[2021-06-26] MEDS: POLYETHYLENE GLYCOL (HEALTHYLAX) 3350 17 GM PACKET PO SCH (11:36)
[2021-06-26 20:36] VITALS: BP 114/71; PULSE 85; TEMP 98.7
== END 2021-06-26 20:38 | disposition home health service (06) | DRG 420 ==
LOC: JER → JERBED 04:08 → JICU 17:57 → J6S 06-12 18:30
PROC: 3E0V329 Introduction of Other Anti-infective into Bones, Percutaneous Approach (ICD-10-PCS; 2021-06-14)
PROC: 0JBQ0ZZ Excision of Right Foot Subcutaneous Tissue and Fascia, Open Approach (ICD-10-PCS; principal; 2021-06-14 07:30)
PROC: 0JBQ0ZZ Excision of Right Foot Subcutaneous Tissue and Fascia, Open Approach (ICD-10-PCS; 2021-06-25)
DX: E11.10 Type 2 diabetes mellitus with ketoacidosis without coma (principal); N17.9 Acute kidney failure, unspecified; L03.115 Cellulitis of right lower limb; D72.829 Elevated white blood cell count, unspecified; E78.5 Hyperlipidemia, unspecified; E87.6 Hypokalemia; G89.29 Other chronic pain; E83.42 Hypomagnesemia; E11.69 Type 2 diabetes mellitus with other specified complication; M86.8X7 Other osteomyelitis, ankle and foot; B96.89 Other specified bacterial agents as the cause of diseases classified elsewhere; E11.621 Type 2 diabetes mellitus with foot ulcer; D64.9 Anemia, unspecified; E11.43 Type 2 diabetes mellitus with diabetic autonomic (poly)neuropathy; K31.84 Gastroparesis; E11.65 Type 2 diabetes mellitus with hyperglycemia; I12.9 Hypertensive chronic kidney disease with stage 1 through stage 4 chronic kidney disease, or unspecified chronic kidney disease; E11.22 Type 2 diabetes mellitus with diabetic chronic kidney disease; N18.9 Chronic kidney disease, unspecified; K21.9 Gastro-esophageal reflux disease without esophagitis; R50.9 Fever, unspecified; K59.00 Constipation, unspecified
CPT/HCPCS: 36415; 36430; 36511; 36600; 71045-TC-FY; 71046-TC-FY; 73590-TC-RT-FY; 73630-TC-RT-FY; 73718-TC-RT; 80048; 80053; 80061; 81003; 82010; 82272; 82550; 82728; 82803; 82962; 83036; 83540; 83550; 83605; 83690; 83735; 84100; 84484; 84703; 85025; 85027; 85045; 86850; 86900; 86901; 86922; 87040; 87070; 87077; 87086; 87205; 90732; 93005; 93010; 93970-TC; 94760; 97116-GP; 97161-GP; 99285-25; C9803; G0009; J0131; P9038; P9058; U0003; U0005

== ENCOUNTER 2022-08-16 08:44 | Inpatient (IN) | payer OTHER ==
[2022-08-16] MEDS ORDERED: MAG HYDROX/AL HYDROX/SIMETH -MYLANTA- ORAL SUSPENSION PO ONE (09:31)
[2022-08-16] MEDS ORDERED: SODIUM CHLORIDE 0.9% 500 ML INFUS.BAG IV ONE ×2 (09:31→12:28)
[2022-08-16] MEDS ORDERED: ONDANSETRON 4 MG TABLET PO ONE (09:36)
[2022-08-16] MEDS ORDERED: FAMOTIDINE 20 MG TABLET PO ONE (09:36)
[2022-08-16] MEDS ORDERED: ACETAMINOPHEN 1000 MG/100 ML BAG IVPB ONE (09:38)
[2022-08-16] MEDS ORDERED: ONDANSETRON *ODT* 4 MG TABLET ONE (09:48)
[2022-08-16] MEDS ORDERED: ACETAMINOPHEN INJECTION 100 ML IVPB ONE (09:48)
[2022-08-16] MEDS ORDERED: FAMOTIDINE 20 MG TABLET ONE (09:48)
[2022-08-16] MEDS ORDERED: MAG HYDROX/AL HYDROX/SIMETH 30 ML UNIT-DOSE CUP ONE (09:49)
[2022-08-16 11:22] LABS: BASO % 0.7 % (0-2.0); EOS % 0.4 % (0-4.5); HEMATOCRIT 30.1 % (32.4-45.2); HEMOGLOBIN 9.8 GM/dL (10.7-15.3); LYMPH % 23.8 % (8-40); MCH 25.9 pg (25.7-33.7); MCHC 32.5 g/dl (32.0-36.0); MEAN CELL VOLUME 79.7 fl (80-96); MEAN PLT VOLUME 8.8 fl (7.5-11.1); MONO % 4.7 % (3.8-10.2); NEUT % 70.4 % (42.8-82.8); PLATELET COUNT 295 10^3/uL (134-434); RBC 3.78 M/mm3 (3.60-5.2); RDW 15.4 % (11.6-15.6); WHITE BLOOD COUNT 7.5 K/mm3 (4.0-10.0)
[2022-08-16 11:36] LABS: INR 0.93 (0.83-1.09); PROTHROMBIN TIME (PATIENT) 10.7 SEC (9.7-13.0)
[2022-08-16 11:39] LABS: ACTIVATED PTT 25.4 SECONDS (25.2-36.5)
[2022-08-16 11:49] LABS: CHLORIDE 96 mmol/L (98-107); SODIUM 135 mmol/L (136-145)
[2022-08-16 11:52] LABS: ALBUMIN 3.3 g/dl (3.4-5.0); ANION GAP 10 MMOL/L (8-16); BLOOD UREA NITROGEN 31.8 mg/dL (7-18); CALCIUM 9.7 mg/dL (8.5-10.1); CO2 29 mmol/L (21-32)
[2022-08-16 11:53] LABS: LIPASE 282 U/L (73-393); MAGNESIUM 1.5 mg/dL (1.8-2.4)
[2022-08-16 11:55] LABS: CREATININE 1.6 mg/dL (0.55-1.3); SGOT/AST 25 U/L (15-37); SGPT/ALT 26 U/L (13-61)
[2022-08-16 11:56] LABS: BILIRUBIN,TOTAL 0.4 mg/dL (0.2-1); TOT PROT 7.9 g/dl (6.4-8.2)
[2022-08-16 11:58] LABS: ALK PHOS 133 U/L (45-117)
[2022-08-16 12:08] LABS: GLUCOSE,RANDOM 533 mg/dL (74-106)
[2022-08-16] MEDS ORDERED: ASPIRIN 81 MG CHEWABLE TABLETS PO ONE (12:13)
[2022-08-16] MEDS ORDERED: ASPIRIN 325 MG TABLET ONE (12:43)
[2022-08-16] MEDS ORDERED: INSULIN REGULAR HUMAN 100 UNITS/ML *VIAL IVPUSH ONE ×2 (12:56→16:06)
[2022-08-16 13:46] LABS: CALCIUM 9.8 mg/dL (8.5-10.1); CHLORIDE 95 mmol/L (98-107); SODIUM 136 mmol/L (136-145)
[2022-08-16 13:47] LABS: ALBUMIN 3.2 g/dl (3.4-5.0); ANION GAP 6 MMOL/L (8-16); BLOOD UREA NITROGEN 32.7 mg/dL (7-18); CO2 35 mmol/L (21-32)
[2022-08-16 13:50] LABS: CREATININE 1.5 mg/dL (0.55-1.3); SGOT/AST 16 U/L (15-37); SGPT/ALT 23 U/L (13-61)
[2022-08-16 13:51] LABS: TOT PROT 7.6 g/dl (6.4-8.2)
[2022-08-16 13:52] LABS: BILIRUBIN,TOTAL 0.2 mg/dL (0.2-1)
[2022-08-16 13:53] LABS: ALK PHOS 130 U/L (45-117)
[2022-08-16 14:07] LABS: GLUCOSE,RANDOM 461 mg/dL (74-106)
[2022-08-16 16:50] LABS: LIPASE 645 U/L (73-393)
[2022-08-16] MEDS: INSULIN SLIDING SCALE (NOVOLOG) 1 VIAL SQ SCH (18:18)
[2022-08-16] MEDS ORDERED: HEPARIN NA (PORCINE) 5,000 UNITS/ML 1ML VIAL ONE (21:50)
[2022-08-16] MEDS: HEPARIN NA (PORCINE) 5,000 UNITS/ML 1ML VIAL SQ SCH (21:59)
[2022-08-16 22:09] LABS: VENOUS BASE EXCESS 1.3 mmol/L (-2-2); VENOUS O2 SATURATION 77.2 % (70-80); VENOUS PCO2 48.8 mmHg (38-52); VENOUS PH 7.362 (7.310-7.410)
[2022-08-17] MEDS: INSULIN SLIDING SCALE (NOVOLOG) 1 VIAL SQ SCH ×4 (00:09→16:30)
[2022-08-17] MEDS ORDERED: ACETAMINOPHEN 500 MG TABLET (FP) PO ONE (02:49)
[2022-08-17] MEDS ORDERED: SIMETHICONE 80 MG TAB.CHEW (FP) PO ONE (03:00)
[2022-08-17] MEDS ORDERED: ACETAMINOPHEN 325 MG TABLET (FP) ONE (03:49)
[2022-08-17] MEDS ORDERED: SIMETHICONE 80 MG TAB.CHEW (FP) ONE (03:49)
[2022-08-17] MEDS ORDERED: MAG HYDROX/AL HYDROX/SIMETH 30 ML UNIT-DOSE CUP PO PRN (07:29)
[2022-08-17] MEDS: HEPARIN NA (PORCINE) 5,000 UNITS/ML 1ML VIAL SQ SCH ×2 (07:46→14:27)
[2022-08-17 12:46] LABS: BASO % 0.6 % (0-2.0); EOS % 0.8 % (0-4.5); HEMATOCRIT 30.9 % (32.4-45.2); LYMPH % 40.2 % (8-40); MCH 25.6 pg (25.7-33.7); MCHC 32.2 g/dl (32.0-36.0); MEAN CELL VOLUME 79.6 fl (80-96); MEAN PLT VOLUME 8.2 fl (7.5-11.1); NEUT % 53.4 % (42.8-82.8); PLATELET COUNT 301 10^3/uL (134-434); RBC 3.88 M/mm3 (3.60-5.2); RDW 15.5 % (11.6-15.6); WHITE BLOOD COUNT 5.3 K/mm3 (4.0-10.0)
[2022-08-17] MEDS: FAMOTIDINE 20 MG TABLET PO SCH (12:51)
[2022-08-17 13:16] LABS: CALCIUM 9.5 mg/dL (8.5-10.1)
[2022-08-17 13:17] LABS: ALBUMIN 3.3 g/dl (3.4-5.0); BLOOD UREA NITROGEN 26.2 mg/dL (7-18); MAGNESIUM 1.7 mg/dL (1.8-2.4)
[2022-08-17 13:20] LABS: CREATININE 1.3 mg/dL (0.55-1.3)
[2022-08-17 13:21] LABS: BILIRUBIN,TOTAL 0.3 mg/dL (0.2-1); PHOSPHOROUS 3.2 mg/dL (2.5-4.9); TOT PROT 7.7 g/dl (6.4-8.2)
[2022-08-17] MEDS ORDERED: SODIUM CHLORIDE 0.45% 1,000 ML IV SCH (15:15)
[2022-08-17] MEDS ORDERED: ACETAMINOPHEN 500 MG TABLET (FP) ONE ×2 (16:21→16:22)
[2022-08-17] MEDS: ACETAMINOPHEN 500 MG TABLET (FP) PO PRN (16:29)
[2022-08-17] MEDS ORDERED: SODIUM CHLORIDE 1,000 ML IV SCH (20:45)
[2022-08-17 21:26] LABS: EPI CELLS 3 /uL (0-25.1); HYALINE CASTS 0 /uL (0-3.1); URINE APPEARANCE CLEAR; URINE BACTERIA 3792 /uL (0-1359); URINE BILIRUBIN NEGATIVE (NEGATIVE); URINE COLOR YELLOW; URINE GLUCOSE (UA) 2+ (NEGATIVE); URINE KETONE NEGATIVE (NEGATIVE); URINE LEUK ESTERASE TRACE (NEGATIVE); URINE NITRITE POSITIVE (NEGATIVE); URINE PROTEIN NEGATIVE (NEGATIVE); URINE RBC 3 /uL (0-23.9); URINE UROBILINOGEN 0.2 mg/dL (0.2-1.0); URINE WBC 27 /uL (0-25.8)
[2022-08-18] MEDS: HEPARIN NA (PORCINE) 5,000 UNITS/ML 1ML VIAL SQ SCH ×4 (04:55→23:49)
[2022-08-18] MEDS ORDERED: HEPARIN NA (PORCINE) 5,000 UNITS/ML 1ML VIAL ONE ×3 (04:56→23:41)
[2022-08-18] MEDS: INSULIN SLIDING SCALE (NOVOLOG) 1 VIAL SQ SCH ×5 (05:02→23:49)
[2022-08-18 07:44] LABS: BASO % 0.6 % (0-2.0); EOS % 0.5 % (0-4.5); HEMATOCRIT 27.2 % (32.4-45.2); MCH 26.3 pg (25.7-33.7); MCHC 33.2 g/dl (32.0-36.0); MEAN CELL VOLUME 79.2 fl (80-96); MEAN PLT VOLUME 9.1 fl (7.5-11.1); MONO % 4.2 % (3.8-10.2); NEUT % 56.7 % (42.8-82.8); PLATELET COUNT 281 10^3/uL (134-434); RBC 3.43 M/mm3 (3.60-5.2); WHITE BLOOD COUNT 5.2 K/mm3 (4.0-10.0)
[2022-08-18 08:08] LABS: ALBUMIN 2.9 g/dl (3.4-5.0); BLOOD UREA NITROGEN 24.8 mg/dL (7-18); CALCIUM 8.3 mg/dL (8.5-10.1)
[2022-08-18 08:09] LABS: MAGNESIUM 1.3 mg/dL (1.8-2.4)
[2022-08-18 08:11] LABS: CREATININE 1.1 mg/dL (0.55-1.3)
[2022-08-18 08:12] LABS: PHOSPHOROUS 3.1 mg/dL (2.5-4.9)
[2022-08-18 08:13] LABS: BILIRUBIN,TOTAL 0.2 mg/dL (0.2-1); TOT PROT 6.9 g/dl (6.4-8.2)
[2022-08-18] MEDS ORDERED: FAMOTIDINE 20 MG TABLET ONE (08:25)
[2022-08-18] MEDS ORDERED: MAG HYDROX/AL HYDROX/SIMETH 30 ML UNIT-DOSE CUP ONE ×3 (08:26→23:41)
[2022-08-18] MEDS: MAG HYDROX/AL HYDROX/SIMETH 30 ML UNIT-DOSE CUP PO SCH ×3 (08:29→23:49)
[2022-08-18] MEDS ORDERED: CEFTRIAXONE 1 GM/50 ML BAG ONE (09:27)
[2022-08-18] MEDS: CEFTRIAXONE 1 GM in DEXTROSE 5%-WATER - 50 ML IVPB SCH (09:28)
[2022-08-18] MEDS: FAMOTIDINE 20 MG TABLET PO SCH (09:28)
[2022-08-18] MEDS ORDERED: MAGNESIUM SULFATE IN WATER 2 GM/50 ML IVPB IVPB ONE (09:28)
[2022-08-18] MEDS ORDERED: MAGNESIUM SULF 50% (8.12 MEQ/2 ML-1 GM VIAL) IVPB ONE (10:00)
[2022-08-18] MEDS: INSULIN (LEVEMIR) 100 UNITS/ML UNITS SQ SCH (23:49)
[2022-08-19] MEDS: HEPARIN NA (PORCINE) 5,000 UNITS/ML 1ML VIAL SQ SCH ×3 (07:04→21:30)
[2022-08-19] MEDS: INSULIN SLIDING SCALE (NOVOLOG) 1 VIAL SQ SCH ×4 (07:08→21:30)
[2022-08-19] MEDS: MAG HYDROX/AL HYDROX/SIMETH 30 ML UNIT-DOSE CUP PO SCH ×3 (09:00→23:00)
[2022-08-19 09:59] LABS: BASO % 0.4 % (0-2.0); HEMATOCRIT 29.9 % (32.4-45.2); HEMOGLOBIN 9.9 GM/dL (10.7-15.3); MCH 26.2 pg (25.7-33.7); MCHC 33.1 g/dl (32.0-36.0); MEAN PLT VOLUME 8.7 fl (7.5-11.1); MONO % 5.9 % (3.8-10.2); NEUT % 47.7 % (42.8-82.8); PLATELET COUNT 283 10^3/uL (134-434); RBC 3.78 M/mm3 (3.60-5.2); RDW 15.2 % (11.6-15.6); WHITE BLOOD COUNT 5.1 K/mm3 (4.0-10.0)
[2022-08-19 10:21] LABS: BLOOD UREA NITROGEN 25.2 mg/dL (7-18); CALCIUM 9.3 mg/dL (8.5-10.1)
[2022-08-19 10:25] LABS: CREATININE 1.1 mg/dL (0.55-1.3)
[2022-08-19] MEDS: FAMOTIDINE 20 MG TABLET PO SCH (10:49)
[2022-08-19] MEDS: CEFTRIAXONE 1 GM in DEXTROSE 5%-WATER - 50 ML IVPB SCH (10:49)
[2022-08-19 13:46] VITALS: BMI 21.1
[2022-08-19] MEDS ORDERED: IRON SUCROSE INJECTION 200 MG in SODIUM CHLORIDE 90 ML IVPB ONE (14:38)
[2022-08-19] MEDS: ACETAMINOPHEN 500 MG TABLET (FP) PO PRN (16:59)
[2022-08-19] MEDS: INSULIN (LEVEMIR) 100 UNITS/ML UNITS SQ SCH (21:30)
[2022-08-20] MEDS: HEPARIN NA (PORCINE) 5,000 UNITS/ML 1ML VIAL SQ SCH ×3 (05:33→22:30)
[2022-08-20] MEDS: INSULIN SLIDING SCALE (NOVOLOG) 1 VIAL SQ SCH ×4 (06:21→22:10)
[2022-08-20] MEDS ORDERED: INSULIN (LEVEMIR) 100 UNITS/ML UNITS SQ ONE (09:02)
[2022-08-20] MEDS ORDERED: INSULIN (NOVOLOG) ASPART 100 UNITS/ML 10ML VIAL ONE ×2 (09:02→16:40)
[2022-08-20] MEDS: CEFTRIAXONE 1 GM in DEXTROSE 5%-WATER - 50 ML IVPB SCH (10:53)
[2022-08-20] MEDS: MAG HYDROX/AL HYDROX/SIMETH 30 ML UNIT-DOSE CUP PO SCH ×3 (10:53→23:30)
[2022-08-20] MEDS: FAMOTIDINE 20 MG TABLET PO SCH (10:53)
[2022-08-20] MEDS: LACTATED RINGERS SOLUTION 1,000 ML/1,000 ML INFUS.BAG IV SCH (14:00)
[2022-08-20] MEDS: INSULIN (LEVEMIR) 100 UNITS/ML UNITS SQ SCH (22:08)
[2022-08-21] MEDS: LACTATED RINGERS SOLUTION 1,000 ML/1,000 ML INFUS.BAG IV SCH ×2 (01:58→12:18)
[2022-08-21] MEDS: HEPARIN NA (PORCINE) 5,000 UNITS/ML 1ML VIAL SQ SCH ×3 (06:34→23:00)
[2022-08-21] MEDS: metFORMIN HCL 500 MG TABLET (FP) PO SCH ×2 (06:34→16:30)
[2022-08-21] MEDS: INSULIN SLIDING SCALE (NOVOLOG) 1 VIAL SQ SCH ×4 (06:37→21:40)
[2022-08-21] MEDS: MAG HYDROX/AL HYDROX/SIMETH 30 ML UNIT-DOSE CUP PO SCH ×3 (08:43→23:00)
[2022-08-21 09:08] LABS: BASO % 0.2 % (0-2.0); EOS % 0.5 % (0-4.5); HEMATOCRIT 27.4 % (32.4-45.2); HEMOGLOBIN 8.8 GM/dL (10.7-15.3); LYMPH % 28.1 % (8-40); MCH 25.9 pg (25.7-33.7); MCHC 32.1 g/dl (32.0-36.0); MEAN CELL VOLUME 80.6 fl (80-96); MEAN PLT VOLUME 8.8 fl (7.5-11.1); MONO % 6.5 % (3.8-10.2); NEUT % 64.7 % (42.8-82.8); PLATELET COUNT 258 10^3/uL (134-434); RDW 15.8 % (11.6-15.6); WHITE BLOOD COUNT 7.1 K/mm3 (4.0-10.0)
[2022-08-21 09:34] LABS: BLOOD UREA NITROGEN 22.9 mg/dL (7-18)
[2022-08-21 09:35] LABS: ALBUMIN 3.1 g/dl (3.4-5.0); MAGNESIUM 1.9 mg/dL (1.8-2.4)
[2022-08-21 09:37] LABS: PHOSPHOROUS 3.1 mg/dL (2.5-4.9)
[2022-08-21 09:39] LABS: BILIRUBIN,TOTAL 0.2 mg/dL (0.2-1)
[2022-08-21] MEDS: FAMOTIDINE 20 MG TABLET PO SCH (09:43)
[2022-08-21] MEDS: ACETAMINOPHEN 500 MG TABLET (FP) PO PRN (09:44)
[2022-08-21] MEDS: INSULIN (LEVEMIR) 100 UNITS/ML UNITS SQ SCH (21:39)
[2022-08-22] MEDS: FLUDROCORTISONE ACETATE 0.1 MG TABLET (FP) PO SCH ×2 (00:15→11:04)
[2022-08-22] MEDS: ACETAMINOPHEN 500 MG TABLET (FP) PO PRN (03:23)
[2022-08-22] MEDS: HEPARIN NA (PORCINE) 5,000 UNITS/ML 1ML VIAL SQ SCH ×2 (06:48→14:26)
[2022-08-22] MEDS: metFORMIN HCL 500 MG TABLET (FP) PO SCH ×2 (06:55→17:29)
[2022-08-22] MEDS: MAG HYDROX/AL HYDROX/SIMETH 30 ML UNIT-DOSE CUP PO SCH ×2 (07:01→15:01)
[2022-08-22] MEDS: INSULIN SLIDING SCALE (NOVOLOG) 1 VIAL SQ SCH ×3 (07:08→17:29)
[2022-08-22] MEDS: FAMOTIDINE 20 MG TABLET PO SCH (11:04)
[2022-08-22 14:41] VITALS: BP 137/73; PULSE 94; RESP 20; TEMP 98.4
== END 2022-08-22 18:15 | disposition home or self-care (01) | DRG 420 ==
LOC: JER 08:44 → JERBED 13:44 → J7W 08-19 02:59
PROVIDERS: ADMIT Internal Medicine; ATTEND Internal Medicine
DX: E11.65 Type 2 diabetes mellitus with hyperglycemia (principal); N17.9 Acute kidney failure, unspecified; I10 Essential (primary) hypertension; Z91.14 Patient's other noncompliance with medication regimen; R10.13 Epigastric pain; R11.10 Vomiting, unspecified; E11.621 Type 2 diabetes mellitus with foot ulcer; L97.518 Non-pressure chronic ulcer of other part of right foot with other specified severity; D50.9 Iron deficiency anemia, unspecified; N39.0 Urinary tract infection, site not specified; B96.20 Unspecified Escherichia coli [E. coli] as the cause of diseases classified elsewhere; E87.5 Hyperkalemia; K80.20 Calculus of gallbladder without cholecystitis without obstruction; I95.1 Orthostatic hypotension
CPT/HCPCS: 0241U-QW; 36415; 71046-TC-FY; 76705-TC; 80048; 80053; 81003; 82010; 82728; 82803; 82962; 83036; 83540; 83550; 83690; 83735; 84100; 84484; 85025; 85045; 85610; 85730; 87086; 87186; 93005; 93010; 97116-GP; 97162-GP; 99285-25; J1644; J1756

== ENCOUNTER 2023-03-19 20:24 | Emergency (ER) | payer OTHER ==
[2023-03-19 20:28] VITALS: TEMP 98.4; BMI 21.9
[2023-03-19] MEDS ORDERED: ONDANSETRON 4 MG/2 ML VIAL IVPUSH ONE (21:48)
[2023-03-19] MEDS ORDERED: ACETAMINOPHEN 1000 MG/100 ML BAG IVPB ONE (21:48)
[2023-03-19] MEDS ORDERED: ACETAMINOPHEN INJECTION 100 ML IVPB ONE (21:51)
[2023-03-19] MEDS ORDERED: ONDANSETRON 4 MG/2 ML VIAL ONE (21:51)
[2023-03-19] MEDS ORDERED: SODIUM CHLORIDE 0.9% 500 ML INFUS.BAG IV ONE (21:55)
[2023-03-19 22:11] LABS: BASO % 0.4 % (0-2.0); EOS % 0.8 % (0-4.5); HEMATOCRIT 26.1 % (32.4-45.2); HEMOGLOBIN 8.4 GM/dL (10.7-15.3); LYMPH % 26.5 % (8-40); MCH 25.5 pg (25.7-33.7); MCHC 32.4 g/dl (32.0-36.0); MEAN CELL VOLUME 78.8 fl (80-96); MEAN PLT VOLUME 7.9 fl (7.5-11.1); MONO % 6.6 % (3.8-10.2); NEUT % 65.7 % (42.8-82.8); PLATELET COUNT 303 10^3/uL (134-434); RBC 3.31 M/mm3 (3.60-5.2); RDW 16.6 % (11.6-15.6); WHITE BLOOD COUNT 7.4 K/mm3 (4.0-10.0)
[2023-03-19 22:29] LABS: CHLORIDE 117 mmol/L (98-107); POTASSIUM 4.4 mmol/L (3.5-5.1); SODIUM 146 mmol/L (136-145)
[2023-03-19 22:31] LABS: ALBUMIN 3.3 g/dl (3.4-5.0); ANION GAP 6 MMOL/L (8-16); BLOOD UREA NITROGEN 24.2 mg/dL (7-18); CALCIUM 8.4 mg/dL (8.5-10.1); CO2 24 mmol/L (21-32); GLUCOSE,RANDOM 138 mg/dL (74-106); LIPASE 381 U/L (73-393)
[2023-03-19 22:32] LABS: MAGNESIUM 1.4 mg/dL (1.8-2.4)
[2023-03-19 22:34] LABS: CREATININE 1.3 mg/dL (0.55-1.3); SGOT/AST 23 U/L (15-37); SGPT/ALT 25 U/L (13-61)
[2023-03-19 22:36] LABS: BILIRUBIN,TOTAL < 0.1 mg/dL (0.2-1); TOT PROT 7.5 g/dl (6.4-8.2)
[2023-03-19 22:37] LABS: ALK PHOS 134 U/L (45-117)
[2023-03-19] MEDS ORDERED: MAGNESIUM SULF 50% (8.12 MEQ/2 ML-1 GM VIAL) IVPB ONE (22:57)
[2023-03-19] MEDS ORDERED: NYSTATIN 100,000 UNIT/GM TOPICAL CREAM 15 GM TUBE TP ONE (23:00)
[2023-03-19] MEDS ORDERED: MAGNESIUM SULFATE IN WATER 2 GM/50 ML IVPB IVPB ONE (23:03)
[2023-03-20 01:21] VITALS: BP 127/80; PULSE 80; RESP 18
[2023-03-20] MEDS ORDERED: NYSTATIN 100,000 UNIT/GM TOPICAL CREAM 15 GM TUBE TP ONE (22:07)
== END 2023-03-20 01:21 | disposition home or self-care (01) ==
LOC: JER 20:24
DX: R10.32 Left lower quadrant pain (principal); R51.9 Headache, unspecified; R11.0 Nausea; R19.7 Diarrhea, unspecified; R30.0 Dysuria; R21 Rash and other nonspecific skin eruption; B37.9 Candidiasis, unspecified; D25.9 Leiomyoma of uterus, unspecified
CPT/HCPCS: 36415; 71045-TC-FY; 74176-TC; 80053; 83690; 83735; 84703; 85025; 86850; 86900; 86901; 99291

== ENCOUNTER 2023-11-16 22:52 | Inpatient (IN) | payer OTHER ==
[2023-11-16 22:59] VITALS: BMI 21.1
[2023-11-16] MEDS ORDERED: LOPERAMIDE HCL 2 MG CAPSULE ONE (23:55)
[2023-11-16] MEDS ORDERED: DICYCLOMINE HCL 10 MG CAPSULE ONE (23:55)
[2023-11-17] MEDS ORDERED: ACETAMINOPHEN INJECTION 100 ML IVPB ONE (00:09)
[2023-11-17] MEDS: LACTATED RINGERS SOLUTION 1,000 ML IV STA (00:11)
[2023-11-17] MEDS: DICYCLOMINE HCL 20 MG TABLET PO ONE (00:11)
[2023-11-17] MEDS: ACETAMINOPHEN 1000 MG/100 ML BAG IVPB ONE (00:11)
[2023-11-17] MEDS: LOPERAMIDE HCL 2 MG CAPSULE PO ONE (00:11)
[2023-11-17 01:00] LABS: BASO % 0.2 % (0-2.0); EOS % 0.3 % (0-4.5); HEMATOCRIT 30.3 % (32.4-45.2); HEMOGLOBIN 10.1 GM/dL (10.7-15.3); LYMPH % 12.6 % (8-40); MCHC 33.2 g/dl (32.0-36.0); MEAN CELL VOLUME 87.4 fl (80-96); MEAN PLT VOLUME 9.2 fl (7.5-11.1); MONO % 4.6 % (3.8-10.2); NEUT % 82.3 % (42.8-82.8); PLATELET COUNT 297 10^3/uL (134-434); RBC 3.47 M/mm3 (3.60-5.2); RDW 13.3 % (11.6-15.6); WHITE BLOOD COUNT 11.1 K/mm3 (4.0-10.0)
[2023-11-17 01:17] LABS: POTASSIUM 5.6 mmol/L (3.5-5.1)
[2023-11-17 01:19] LABS: CALCIUM 9.2 mg/dL (8.5-10.1)
[2023-11-17 01:20] LABS: ALBUMIN 3.5 g/dl (3.4-5.0); BLOOD UREA NITROGEN 46.2 mg/dL (7-18); MAGNESIUM 1.5 mg/dL (1.8-2.4)
[2023-11-17 01:22] LABS: CREATININE 1.7 mg/dL (0.55-1.3)
[2023-11-17 01:24] LABS: BILIRUBIN,TOTAL 0.2 mg/dL (0.2-1); TOT PROT 8.3 g/dl (6.4-8.2)
[2023-11-17] MEDS ORDERED: MAGNESIUM SULFATE IN WATER 2 GM/50 ML IVPB IVPB ONE (01:29)
[2023-11-17] MEDS: SODIUM CHLORIDE 0.9% 500 ML INFUS.BAG IV ONE (01:58)
[2023-11-17] MEDS: MAGNESIUM SULFATE IN WATER 2 GM/50 ML IVPB IVPB ONE (01:58)
[2023-11-17] MEDS ORDERED: SODIUM ZIRCONIUM CYCLOSILICATE (LOKELMA) 10 GM PACKET ONE (03:18)
[2023-11-17] MEDS: SODIUM ZIRCONIUM CYCLOSILICATE (LOKELMA) 5 GM PACKET PO ONE (03:23)
[2023-11-17 03:39] LABS: EPI CELLS >36 /uL (0-25.1); HYALINE CASTS 2 /uL (0-3.1); URINE APPEARANCE CLEAR; URINE BACTERIA 3573 /uL (0-1359); URINE BILIRUBIN NEGATIVE (NEGATIVE); URINE COLOR YELLOW; URINE GLUCOSE (UA) NEGATIVE (NEGATIVE); URINE KETONE TRACE (NEGATIVE); URINE LEUK ESTERASE 2+ (NEGATIVE); URINE NITRITE NEGATIVE (NEGATIVE); URINE PROTEIN TRACE (NEGATIVE); URINE UROBILINOGEN 0.2 mg/dL (0.2-1.0); URINE WBC 194 /uL (0-25.8)
[2023-11-17] MEDS ORDERED: CEFTRIAXONE 1 GM/50 ML BAG ONE ×2 (04:08→10:41)
[2023-11-17] MEDS: CEFTRIAXONE 1 GM in DEXTROSE 5%-WATER - 50 ML IVPB ONE (05:06)
[2023-11-17] MEDS: SODIUM CHLORIDE 1,000 ML IV SCH (05:07)
[2023-11-17 10:43] LABS: POTASSIUM 4.6 mmol/L (3.5-5.1)
[2023-11-17 10:45] LABS: CALCIUM 8.8 mg/dL (8.5-10.1)
[2023-11-17 10:46] LABS: BLOOD UREA NITROGEN 40.6 mg/dL (7-18)
[2023-11-17 10:49] LABS: CREATININE 1.3 mg/dL (0.55-1.3)
[2023-11-18] MEDS: CEFTRIAXONE 1 GM in DEXTROSE 5%-WATER - 50 ML IVPB SCH (09:08)
[2023-11-18 10:10] LABS: BASO % 0.3 % (0-2.0); EOS % 0.6 % (0-4.5); HEMATOCRIT 29.5 % (32.4-45.2); MCH 29.5 pg (25.7-33.7); MCHC 33.8 g/dl (32.0-36.0); MEAN CELL VOLUME 87.3 fl (80-96); MEAN PLT VOLUME 8.7 fl (7.5-11.1); MONO % 5.4 % (3.8-10.2); NEUT % 63.7 % (42.8-82.8); PLATELET COUNT 278 10^3/uL (134-434); RBC 3.38 M/mm3 (3.60-5.2); WHITE BLOOD COUNT 5.3 K/mm3 (4.0-10.0)
[2023-11-18 10:30] LABS: POTASSIUM 4.4 mmol/L (3.5-5.1)
[2023-11-18 10:38] LABS: BLOOD UREA NITROGEN 20.3 mg/dL (7-18); TOT PROT 6.8 g/dl (6.4-8.2)
[2023-11-18 10:39] LABS: BILIRUBIN,TOTAL 0.2 mg/dL (0.2-1)
[2023-11-18 10:41] LABS: CALCIUM 9.2 mg/dL (8.5-10.1)
[2023-11-18 10:42] LABS: ALBUMIN 2.7 g/dl (3.4-5.0)
[2023-11-18] MEDS: INSULIN (NOVOLOG) ASPART 100 UNITS/ML 10ML VIAL SQ ONE (17:01)
[2023-11-18] MEDS: SODIUM CHLORIDE 1,000 ML IV SCH (23:00)
[2023-11-19] MEDS: INSULIN (NOVOLOG) ASPART 100 UNITS/ML 10ML VIAL SQ ONE (07:24)
[2023-11-19 12:45] VITALS: PULSE 89; RESP 18
[2023-11-19 14:34] VITALS: BP 97/60; TEMP 98.5
== END 2023-11-19 18:03 | disposition home or self-care (01) | DRG 469 ==
LOC: JER 22:52 → JERBED 11-17 02:29 → J6S 11-17 13:57
PROVIDERS: ADMIT Internal Medicine; ATTEND Internal Medicine
DX: N17.9 Acute kidney failure, unspecified (principal); E83.42 Hypomagnesemia; E11.9 Type 2 diabetes mellitus without complications; R19.7 Diarrhea, unspecified; R11.2 Nausea with vomiting, unspecified; D50.9 Iron deficiency anemia, unspecified; N39.0 Urinary tract infection, site not specified; Z79.4 Long term (current) use of insulin; E87.5 Hyperkalemia
CPT/HCPCS: 0241U-QW; 36415; 80048; 80053; 81003; 82962; 83690; 83735; 84100; 85025; 87040; 87086; 87186; 93005; 93010; 99285-25; J0131

== ENCOUNTER 2024-03-03 18:08 | Emergency (ER) | payer OTHER ==
[2024-03-03 18:45] VITALS: RESP 18; TEMP 98.4; BMI 22.3
[2024-03-03] MEDS ORDERED: IBUPROFEN 400 MG TABLET (FP) PO ONE (19:51)
[2024-03-03] MEDS ORDERED: ACETAMINOPHEN 500 MG TABLET (FP) ONE (19:51)
[2024-03-03] MEDS: ACETAMINOPHEN 500 MG TABLET (FP) PO ONE (19:52)
[2024-03-03] MEDS: IBUPROFEN 400 MG TABLET (FP) PO ONE (19:52)
[2024-03-03 20:15] VITALS: BP 159/64; PULSE 91
[2024-03-03 20:23] LABS: THROAT:GRP A STREP NOT DETECTED (NOTDETECTED)
== END 2024-03-03 21:13 | disposition home or self-care (01) ==
LOC: JER 18:08 → JERFT 18:08
DX: R51.9 Headache, unspecified (principal); B34.9 Viral infection, unspecified; J02.9 Acute pharyngitis, unspecified; R09.81 Nasal congestion; R68.83 Chills (without fever); Z20.822 Contact with and (suspected) exposure to COVID-19
CPT/HCPCS: 0241U-QW; 82962; 87651; 99283-25